=== PATIENT | male | born 1930 | race Caucasian/White ===

== ENCOUNTER 2018-06-14 02:51 | Inpatient (IN) | payer MEDICARE ==
[2018-06-14 05:13] LABS: ALT (SGPT) 14 U/L (8-55); AST (SGOT) 20 U/L (5-34); Albumin 3.6 g/dL (3.4-4.8); Alkaline Phosphatase 170 U/L (40-150); Anion Gap 15 mmol/L (10-20); BUN (Urea Nitrogen) 47 mg/dL (8.4-25.7); Bilirubin, Total 2.3 mg/dL (0.2-1.2); Calc. Creatinine Clearance 0 mL/min (70-130); Calcium 9.7 mg/dL (7.8-10.44); Carbon Dioxide 22 mmol/L (23-31); Chloride 108 mmol/L (98-107); Estimated GFR-MDRD 35; Globulin 3.1 g/dL (2.4-3.5); Glucose 91 mg/dL (83-110); Magnesium 1.7 mg/dL (1.6-2.6); Potassium 4.2 mmol/L (3.5-5.1); Protein, Total 6.7 g/dL (5.8-8.1); Sodium 141 mmol/L (136-145)
[2018-06-14] MEDS ORDERED: Acetaminophen 325 MG TAB PO PRN (05:43)
[2018-06-14] MEDS ORDERED: Ondansetron ODT 4 MG TAB PO PRN (05:43)
[2018-06-14 05:50] LABS: #Eosinphils 0.1 thou/uL (0.0-0.7); #Lymphocytes 1.5 thou/uL (1.20-3.40); #Monocytes 0.6 thou/uL (0.11-0.59); #Neutrophils 3.5 thou/uL (1.40-6.50); %Basophils 0.5 % (0.0-1.0); %Eosinophils 1.4 % (0.0-10.0); %Lymphocytes 26.8 % (21.0-51.0); %Neutrophils 60.3 % (42.0-75.0); Hemoglobin 11.8 g/dL (14.0-18.0); MDiff Complete? YES; Macrocytosis SLIGHT = 6-15 cells (100X) (0-5/hpf); Mean Corpuscular HGB CONC 32.9 g/dL (32.0-36.0); Mean Corpuscular Hemoglobin 35.2 pg (27.0-31.0); Mean Platelet Volume 7.8 fL (7.4-10.4); Platelet Count 108 thou/uL (130-400); Platelet Morphology Comment Appears Decreased; RBC Distribution Width 11.9 % (11.5-14.5); Red Blood Cell (RBC) Count 3.35 mill/uL (4.70-6.10); White Blood Cell (WBC) Count 5.7 thou/uL (4.8-10.8)
[2018-06-14 06:58] VITALS: BMI 37.4
[2018-06-14 08:48] LABS: Troponin I 0.026 ng/mL (< 0.028)
[2018-06-14] MEDS: Enoxaparin Sodium 40 MG/0.4 ML SYRINGE SC SCH (09:35)
--- NOTE | 2018-06-14 09:51 | RAD ---
PORTABLE CHEST: Date: 06/14/18 HISTORY: Shortness of breath. COMPARISON: Prior day's exam. FINDINGS: Heart size is enlarged with internal defibrillator device present. Parenchymal lung changes are simil ar to the previous exam, appear to be largely chronic in nature. There could be some subsegmental ate lectasis in the right lung base. IMPRESSION: Stable exam. POS: ADITYA
--- NOTE | 2018-06-14 12:47 | HP ---
PRIMARY CARE DOCTOR: Physician in out of town. CODE STATUS: Full code. TIME OF EVALUATION: 5:30 a.m. CHIEF COMPLAINT: 1. Generalized weakness. 2. Shortness of breath. HISTORY OF PRESENT ILLNESS: This is an 87-year-old male patient with past medical history of status post pacemaker placement, hypertension, PVD, rectal bleeding in the past, who presented to [facility] [place] after having generalized weakness, some back pain, shortness of breath. No clear triggers. No alleviating factors. The patient stated that his . Symptoms were mild to moderate. No clear triggers. No alleviating factors. It was started overnight. REVIEW OF SYSTEMS: CONSTITUTIONAL: No fevers or chills. The patient reported generalized weakness. RESPIRATORY: No cough or sputum production. The patient did report some shortness of breath. CARDIOVASCULAR: No chest pain or palpitations. GASTROINTESTINAL: No nausea. No vomiting. No diarrhea. No abdominal pain. SWITCHING CLERK: No dizziness, headache, or feeling lightheaded. GENITOURINARY: No burning on urination. EXTREMITIES: Bilateral leg swelling. All other systems were reviewed and negative except for the findings mentioned above. PAST MEDICAL HISTORY: As mentioned in the HPI. PAST SURGICAL HISTORY: Pacemaker, hernia, cochlear implant. PSYCHIATRIC HISTORY: No previous psychiatric history. SOCIAL HISTORY: No drugs, no alcohol, no smoking history. ALLERGIES: 1. BEE STING. 2. ELIQUIS. REPORTED MEDICATIONS: 1. Finasteride. 2. Furosemide. 3. Pravastatin. 4. Metoprolol. 5. Warfarin. PHYSICAL EXAMINATION: VITAL SIGNS: On presentation, blood pressure 139/65 with heart rate 78, respiratory rate of 14, temperature 98, pain 0/10, oxygen saturation was 99. GENERAL APPEARANCE: The patient is alert, oriented, not in acute distress, in good mood. HEENT: Eyes; normal conjunctivae. Moist oral mucosa. Anicteric. No JVD. RESPIRATORY: Bilateral air entry. No rales. No wheezing. Symmetric expansion. CARDIOVASCULAR: Normal rate. Regular rhythm. No murmurs. No gallops. The patient has significant bilateral leg edema. ABDOMEN: Soft. Normal bowel sounds. MUSCULOSKELETAL: Baseline range of motion and strength. No tenderness. SKIN: Warm and intact. No pallor. No rash. The patient does have chronic changes in bilateral lower extremities skin. Peripheral pulse are present. Capillary refill seems to intact. NEURO: No evidence of any new focal weakness. Baseline speech. Cranial nerves seem to be intact. PSYCH: The patient is in good mood. No anxiety. Oriented. Optimal judgement. DIAGNOSTIC DATA: EKG; ventricular rate is 86. The patient has a paced rhythm and pacemaker not pacing properly. Chest x-ray was reviewed by myself. The patient has bilateral pleural effusion, cardiomegaly, pulmonary vein. Pacemaker placed in the right position. No abnormalities found. LABORATORY DATA: Labs were reviewed. The patient has a white count of 5.7, hemoglobin 11.9, hematocrit 35, MCV 107, platelet count 108. Chemistry; sodium 141, potassium 4.2, chloride 108, carbon dioxide 22, anion gap 18, BUN 47, creatinine 1.92. We have previous value reports, GFR 35, glucose 91, calcium 9.7, magnesium 1.7, total bilirubin 2.3. AST 20, ALT 14, alkaline phosphatase 170. Troponin 0.021. Beta natriuretic peptide [QAMARKER]. Albumin was normal. ASSESSMENT AND PLAN: The patient will be placed in the hospital with the following medical problems: 1. Congestive heart failure exacerbation. The patient has significant bilateral leg edema, shortness of breath. The patient has been started on Lasix. Home medications were reconciled. I need state tested nursing assistant from Dr. Parker who is the production analyst who follows with the patient. 2. Pacemaker malfunction. Intervention has been ordered. We will follow result, might need consultation with EPS if not working properly. 3. Possible acute kidney injury. No previous values to compare. Creatinine is 1.82, might be cardiorenal. The patient will be started on Lasix for kidney function and we will monitor for any worsening need Nephro evaluation for state tested nursing assistant with any further device adjustment. 4. Macrocytic anemia, this is chronic, we will monitor, no need for any acute intervention at this point. 5. History of atrial fibrillation, rate is controlled, we will reconcile home medications, pacemaker intervention has been ordered. 6. Controlled hypertension. Blood pressure has been normal, we will reconcile home medications and adjust treatment as needed. 7. DVT prophylaxis. Job ID: [id number]
--- NOTE | 2018-06-14 16:14 | PDOC.PN ---
- Subjective Encounter Start Date: 06/14/18 Encounter Start Time: 15:50 Subjective: f/u for acute CHF, general weakness, AVRIL and pacemaker malfunction. -: Feels weak and unsteady on feet. Hx of falls and using a RW in last 2 weeks -: Some confusion noted per sons. - Objective Resuscitation Status - Order Detail: 06/14/18 05:43 Resuscitation Status Routine Resuscitation Status: FULL: Full Resuscitation MAR Reviewed: Yes Vital Signs & Weight: Vital Signs (12 hours) Temp Pulse Resp BP Pulse Ox 06/14/18 15:00 98.3 F 78 17 117/56 L 96 06/14/18 11:53 98 F 75 16 111/54 L 98 06/14/18 06:54 97.9 F 72 16 99/55 L 99 Weight Weight 239 lb I&O: 06/13/18 06/14/18 06/15/18 06:59 06:59 06:59 Intake Total 240 Balance 240 Result Diagrams: 06/14/18 04:40 06/14/18 04:40 Additional Labs: Laboratory Tests 06/14/18 06/14/18 06/14/18 04:40 04:40 04:40 Magnesium 1.7 Troponin I 0.021 B-Natriuretic Peptide 739.2 H 06/14/18 08:10 Magnesium Troponin I 0.026 B-Natriuretic Peptide Radiology Reviewed by me: Yes (PCXR - chronic changes bilat, PM in place) EKG Reviewed by me: Yes (Tele - Intermittent pacing, +PVC's) Phys Exam - Physical Examination Constitutional: NAD HEENT: PERRLA, sclera anicteric, oral pharynx no lesions Neck: no nodes, no JVD, supple, full ROM coarse sounds in bases, + crackles S1, S2 Cardiovascular: no significant murmur, no rub, gallop, irregular Gastrointestinal: soft, non-tender, no distention, positive bowel sounds Musculoskeletal: pulses present, edema present Neurological: normal sensation, moves all 4 limbs Psychiatric: A&O x 3 Skin: normal turgor, cap refill <2 seconds Dx/Plan (1) Acute CHF (congestive heart failure) Code(s): I50.9 - HEART FAILURE, UNSPECIFIED Status: Acute Comment: ? EF, check 2D echo, Lasix 20mg IV BID, continue Zaroxolyn (2) AVRIL (acute kidney injury) Code(s): N17.9 - ACUTE KIDNEY FAILURE, UNSPECIFIED Status: Acute Comment: Avoid nephrotoxic meds and limit contrast exposure, serial creatinine (3) Atrial fibrillation Code(s): I48.91 - UNSPECIFIED ATRIAL FIBRILLATION Status: Chronic Comment: Currently paced, continue Coumadin, Metoprolol (4) Chronic anticoagulation Code(s): Z79.01 - VICE PRESIDENT QUALITY ASSURANCE (CURRENT) USE OF ANTICOAGULANTS Status: Chronic Comment: Daily PT/INR, continue Coumadin (5) Generalized weakness Code(s): R53.1 - WEAKNESS Status: Chronic Comment: PT evaluation for functional assessment, fall risk precautions, ? SNF/Rehab - Plan plan discussed w/ family, PT/OT, social worker assistant, out of bed/ambulate Continue Lasix 20mg IV BID -: Consult Cardiology service regarding CHF, Pacemaker -: 2D echo pending -: PT evaluation for functional assessment -: AM lab: BMP, CBC, TSH, PT/INR * Convert to inpt status
[2018-06-14] MEDS ORDERED: Furosemide 20 MG/2 ML VIAL SLOW IVP SCH (16:15)
[2018-06-14 17:35] LABS: INR-International Normal Ratio 2.5; Prothrombin Time 26.9 SEC (12.0-14.7)
[2018-06-14] MEDS ORDERED: Warfarin Sodium 3 MG TAB PO SCH (18:00)
[2018-06-14] MEDS: Pravastatin Sodium 40 MG TAB PO SCH (21:35)
[2018-06-14] MEDS: Finasteride 5 MG TAB PO SCH (21:35)
[2018-06-15 04:53] LABS: INR-International Normal Ratio 2.5; Prothrombin Time 26.8 SEC (12.0-14.7)
[2018-06-15 04:56] LABS: #Basophils 0.1 thou/uL (0.0-0.2); #Eosinphils 0.1 thou/uL (0.0-0.7); #Lymphocytes 1.3 thou/uL (1.20-3.40); #Monocytes 0.7 thou/uL (0.11-0.59); #Neutrophils 3.3 thou/uL (1.40-6.50); %Basophils 0.9 % (0.0-1.0); %Eosinophils 1.9 % (0.0-10.0); %Lymphocytes 24.3 % (21.0-51.0); %Monocytes 13.1 % (0.0-10.0); %Neutrophils 59.8 % (42.0-75.0); Hemoglobin 11.1 g/dL (14.0-18.0); Mean Corpuscular HGB CONC 31.9 g/dL (32.0-36.0); Mean Corpuscular Hemoglobin 34.4 pg (27.0-31.0); Mean Platelet Volume 7.5 fL (7.4-10.4); Platelet Count 95 thou/uL (130-400); Red Blood Cell (RBC) Count 3.22 mill/uL (4.70-6.10); White Blood Cell (WBC) Count 5.5 thou/uL (4.8-10.8)
[2018-06-15] MEDS ORDERED: Metolazone 5 MG TAB PO SCH (05:00)
[2018-06-15 05:09] LABS: Anion Gap 15 mmol/L (10-20); BUN (Urea Nitrogen) 45 mg/dL (8.4-25.7); Calc. Creatinine Clearance 43 mL/min (70-130); Calcium 9.5 mg/dL (7.8-10.44); Carbon Dioxide 24 mmol/L (23-31); Chloride 106 mmol/L (98-107); Estimated GFR-MDRD 35; Glucose 93 mg/dL (83-110); Potassium 4.5 mmol/L (3.5-5.1); Sodium 140 mmol/L (136-145)
[2018-06-15] MEDS ORDERED: Furosemide 20 MG/2 ML VIAL SLOW IVP SCH (06:00)
--- NOTE | 2018-06-15 07:52 | PDOC.PN ---
- Subjective Encounter Start Date: 06/15/18 Encounter Start Time: 08:40 Subjective: Patient with severe fatigue/ MULLER with ambulation, worse past 2 months since -: tried to switch to Zarelto and had some bleeding issues with bladder and -: lower GI bleed workup. No chest pain. No SOB at rest currently. - Objective Resuscitation Status - Order Detail: 06/14/18 05:43 Resuscitation Status Routine Resuscitation Status: FULL: Full Resuscitation MAR Reviewed: Yes Vital Signs & Weight: Vital Signs (12 hours) Temp Pulse Resp BP Pulse Ox 06/15/18 05:46 98 F 73 18 108/56 L 97 Weight Weight 241 lb 1.6 oz I&O: 06/14/18 06/15/18 06/16/18 06:59 06:59 06:59 Intake Total 1010 Output Total 550 Balance 460 Result Diagrams: 06/15/18 04:31 06/15/18 04:31 Phys Exam - Physical Examination Constitutional: NAD HEENT: moist MMs Respiratory: no wheezing, no rales, no rhonchi Cardiovascular: RRR, no significant murmur Gastrointestinal: soft, positive bowel sounds Musculoskeletal: edema present tight 3+ edema to bilateral lower extremities Neurological: non-focal, moves all 4 limbs Psychiatric: normal affect, A&O x 3 Dx/Plan (1) Acute CHF (congestive heart failure) Code(s): I50.9 - HEART FAILURE, UNSPECIFIED Status: Acute Comment: ? EF, check 2D echo, Lasix increased to 40mg IV BID, continue Zaroxolyn, cardiology consult pending (2) AVRIL (acute kidney injury) Code(s): N17.9 - ACUTE KIDNEY FAILURE, UNSPECIFIED Status: Acute Comment: Avoid nephrotoxic meds and limit contrast exposure, serial creatinine (3) Atrial fibrillation Code(s): I48.91 - UNSPECIFIED ATRIAL FIBRILLATION Status: Chronic Comment: Currently paced, continue Coumadin, Metoprolol (4) Chronic anticoagulation Code(s): Z79.01 - GEM TECHNICIAN (CURRENT) USE OF ANTICOAGULANTS Status: Chronic Comment: Daily PT/INR, continue Coumadin (5) Generalized weakness Code(s): R53.1 - WEAKNESS Status: Chronic Comment: PT evaluation for functional assessment, fall risk precautions, ? SNF/Rehab - Plan cont current plan of care, PT/OT * . - Discharge Day Encounter end time: 08:50
[2018-06-15] MEDS: Enoxaparin Sodium 40 MG/0.4 ML SYRINGE SC SCH (10:55)
[2018-06-15] MEDS: Furosemide 40 MG/4 ML VIAL SLOW IVP SCH (15:27)
[2018-06-15] MEDS: Warfarin Sodium 3 MG TAB PO SCH (17:08)
--- NOTE | 2018-06-15 19:51 | CON ---
DATE OF CONSULTATION: PRIMARY CARE DOCTOR: Dr. Hansen. PRIMARY PSYCHIATRY PHYSICIAN: Dr. Waleska Parker. REFERRING DOCTOR: Dr. Bigg Bustillos. REASON FOR CARDIOLOGY CONSULT: Pacemaker malfunction, CHF and atrial fibrillation. HISTORY OF PRESENT ILLNESS: Mr. Carbajal is an 87-year-old, very present male with a significant history of chronic atrial fibrillation, hypertension, status post pacemaker placement, and COPD. The patient has complained of fatigue, dizziness, and less appetite for more than three months. He has seen Dr. Parker on June 03, 2018, and metoprolol succinate was increased to 50 mg once a day with metolazone 5 mg 1 tablet on Friday and . He was also instructed to watch his fluid and fluid intake. However, today during the initial Cardiology consult assessment, he said he has not watched his diet. Since he is living by himself, he eats cans of beans, and frozen dinner at home and drinks orange juice. Yesterday, he felt more weak and dizzy, and really he did not have any appetite. The patient's son drove him to [facility] for further evaluation and treatment. The patient had a 12-lead EKG at the [facility]. The 12-lead EKG shows unspecified pacemaker malfunction. Because of that reason, the patient was transferred to [facility] in [place], [place]. Today, the patient's pacemaker interrogation shows 3 episodes of very short runs of SVT, the longest one being 5 seconds and actually, the patient's 12-lead EKG in [facility] shows no abnormal pacemaker failure and functioned well; however, the patient still complained of fatigue and no appetite at this moment. The patient wore lymphoma boots at home for a couple of months for bilateral lower extremity edema. At this moment, the patient still continued to complain of fatigue at this moment, but denied shortness of breath, dizziness, lightheadedness, palpitation, fluttering in his chest, or any other cardiac complaints. He had been on Eliquis in July 2017 for chronic atrial fibrillation. However, he developed GI bleed with Eliquis and Eliquis was stopped and resumed on Coumadin. Today, he reports that he had intermittent dark stool still. His hemoglobin level is stable at this moment. The patient had a pacemaker placement in 2010 and an urgent generator change out was done in 2016. He has seen a water pollution scientist in [place], [place], but recently, he changed and his water pollution scientist is Dr. Parker. He reports that he had an echocardiogram done in July 2017, which was normal per patient's report. PAST MEDICAL HISTORY: 1. Chronic atrial fibrillation. 2. Hypertension. 3. COPD. SURGICAL HISTORY: Pacemaker placement 2010 and generator change out in 2016, hernia repair about 30 years ago, hearing aid, and cornea implants placement. FAMILY HISTORY: The patient's mother is due to heart-related disease and the patient's mother also had a pacemaker placement. The patient's father due to cancer, but also he had a history of CHF. SOCIAL HISTORY: Patient is , lives by himself, but his son lives in the same town. He has 2 children who are alive, well, and healthy. He used to smoke, but quit in 1996. He denied EtOH or illicit drug abuse. He drinks 2 cups of coffee a day. He does not watch salt or fluid intake at home. He lives by himself. He is housekeeping himself. ALLERGIES: HE IS ALLERGIC TO ELIQUIS AND HONEYBEE. HOME MEDICATIONS: 1. Pravastatin 40 mg once a day. 2. Metoprolol succinate 50 mg once a day. 3. Metolazone 5 mg on Friday and . 4. Finasteride 5 mg once a day. 5. Coumadin 3 mg once a day. 6. Lasix 40 mg once a day. REVIEW OF SYSTEMS: A 12-point review of systems was negative unless otherwise mentioned. The patient had several bouts of diarrhea about two weeks ago. He has had less appetite recently and he drank Boost, 1-2 Boost a day for 3 months so far. He is still having intermittent dark stool, the last one was last Friday. He uses a walker. PHYSICAL EXAMINATION: VITAL SIGNS: Blood pressure 143/61, temperature 97.4, pulse is 83 and afebrile, respiratory rate 16, O2 saturation 96% on room air. GENERAL: The patient is alert, oriented x4, not in acute distress. EYES: Extraocular muscle movement intact. ENT AND MOUTH: Oral mucosa moist without lesion. NECK: Supple. No JVD. LUNGS: Clear to auscultate bilaterally. No rales, rhonchi, or wheezes noted. CARDIOVASCULAR: Irregularly irregular. No significant murmur to the left fifth intercostal mediastinal border. No thrill or bruit noted. Carotid pulses are present without bruit or thrill noted. 2+ pulses in bilateral lower extremities. However, there is 3+ pitting edema in bilateral lower extremities. SKIN: Warm and dry, but discoloration to the bilateral lower extremities, but no rash, erythema or laceration. MUSCULOSKELETAL: The patient is able to move all extremities without difficulties. The patient denied claudication. PSYCHIATRIC: The patient's mood is appropriate. NEUROLOGIC: The patient is alert and oriented x4. Nonfocal. LABORATORY DATA: WBC 5.5, hemoglobin 11.1, hematocrit 34.7, platelet 95. INR today 2.5. Sodium 140, potassium 4.5, BUN 45, creatinine 1.85, glucose 93, AST 20, ALT 14, troponin 0.021 and 0.026. BNP is 739. TSH 1.662. Chest x-ray showed no acute cardiopulmonary dysfunction. ASSESSMENT AND PLAN: 1. Pacemaker interrogation although patient's 12-lead EKG in the ER at [facility] specified the pacemaker failure. The patient's pacemaker interrogation shows no arrhythmia, pauses or any failure at this moment. The patient had a 3-beat very short run of supraventricular tachycardia. The patient is asymptomatic. 2. Acute on chronic heart failure. The patient's condition is stable at this moment with Lasix 40 mg IV twice a day with metolazone 5 mg 1 hour prior to the Lasix on Friday and . An echocardiogram was ordered, but the results are pending at this moment. He is on the Lasix, metolazone, metoprolol succinate 50 mg once a day. If the patient's blood pressure is stable, we would like to start ITALO inhibitor or ARB for this patient. 3. Acute kidney insufficiency. His creatinine level is being elevated. We would like to hold the ITALO inhibitor or ARB at this moment due to the creatinine level. 4. Chronic atrial fibrillation. The patient's heart rate is well controlled with metoprolol 50 mg once a day. He is on Coumadin 3 mg once a day at this moment, which is managed by patient's primary care doctor. 5. Hypertension. The patient's blood pressure is stable at this moment with current medication. 6. Chronic obstructive pulmonary disease. Patient is stable on room air. Thank you for allowing Cardiology Services to participate in the care of this patient. We will follow along the patient's care team and make further evaluation as appropriate. Job ID: [id number]
[2018-06-15] MEDS: Pravastatin Sodium 40 MG TAB PO SCH (20:42)
[2018-06-15] MEDS: Finasteride 5 MG TAB PO SCH (20:42)
[2018-06-16] MEDS: Furosemide 40 MG/4 ML VIAL SLOW IVP SCH ×2 (06:25→14:30)
--- NOTE | 2018-06-16 07:18 | PDOC.PN ---
- Subjective Encounter Start Date: 06/16/18 Encounter Start Time: 09:50 Subjective: Patient with weakness, but feeling a bit better. Swelling improving -: behind knees. No SOB at rest. - Objective Resuscitation Status - Order Detail: 06/14/18 05:43 Resuscitation Status Routine Resuscitation Status: FULL: Full Resuscitation MAR Reviewed: Yes Vital Signs & Weight: Vital Signs (12 hours) Temp Pulse Resp BP BP Pulse Ox 06/16/18 04:15 98.2 F 77 18 97/54 L 95 06/16/18 00:30 98.2 F 77 18 108/56 L 95 06/15/18 20:00 97.8 F 87 20 103/57 L 96 06/15/18 19:30 96 Weight Weight 240 lb 9.6 oz I&O: 06/15/18 06/16/18 06/17/18 06:59 06:59 06:59 Intake Total 1010 1380 Output Total 550 1150 Balance 460 230 Result Diagrams: 06/15/18 04:31 06/15/18 04:31 Phys Exam - Physical Examination Constitutional: NAD HEENT: moist MMs Respiratory: no wheezing, no rales, no rhonchi Cardiovascular: RRR, no significant murmur Gastrointestinal: soft, positive bowel sounds Musculoskeletal: edema present 3+ bilateral tense edema to knees Neurological: non-focal, moves all 4 limbs Psychiatric: normal affect, A&O x 3 Dx/Plan (1) Acute CHF (congestive heart failure) Code(s): I50.9 - HEART FAILURE, UNSPECIFIED Status: Acute Comment: ? EF, check 2D echo, Lasix increased to 40mg IV BID, continue Zaroxolyn, cardiology consult pending (2) AVRIL (acute kidney injury) Code(s): N17.9 - ACUTE KIDNEY FAILURE, UNSPECIFIED Status: Acute Comment: Avoid nephrotoxic meds and limit contrast exposure, serial creatinine (3) Atrial fibrillation Code(s): I48.91 - UNSPECIFIED ATRIAL FIBRILLATION Status: Chronic Comment: Currently paced, continue Coumadin, Metoprolol (4) Chronic anticoagulation Code(s): Z79.01 - NURSING HOME (CURRENT) USE OF ANTICOAGULANTS Status: Chronic Comment: Daily PT/INR, continue Coumadin, will have pharmacy monitor in house (5) Generalized weakness Code(s): R53.1 - WEAKNESS Status: Chronic Comment: PT evaluation for functional assessment, fall risk precautions, ? SNF/Rehab - Plan cont current plan of care, PT/OT, DVT proph w/lovenox Pacer malfunction ruled out * . - Discharge Day Encounter end time: 10:00
[2018-06-16] MEDS ORDERED: WARFARIN PO PRN (07:39)
--- NOTE | 2018-06-16 08:31 | PDOC.CTH ---
Cardiology Progress Note - Subjective The pt seen and examined. No overnight events. No cardiac complaints. Edema to bilat thighs, but improving since he is on Lasix IV per the pt. - Objective Vital Signs Temp Pulse Resp BP BP Pulse Ox 06/16/18 07:18 98.0 F 84 16 126/57 L 93 L 06/16/18 04:15 98.2 F 77 18 97/54 L 95 06/16/18 00:30 98.2 F 77 18 108/56 L 95 Weight 240 lb 9.6 oz 06/15/18 06/16/18 06/17/18 06:59 06:59 06:59 Intake Total 1010 1380 Output Total 550 1150 Balance 460 230 - Physical Examination General/Neuro: alert & oriented x3 Neck: no JVD present Lungs: CTA Heart: other: (irregular) Abdomen: soft Extremities: other: (3-4+ pitting BLE edema to bilat thigh) - Telemetry Telemetry Rhythm: BiV pacing - Labs Result Diagrams: 06/15/18 04:31 06/15/18 04:31 Troponin/CKMB Troponin I 0.026 ng/mL (< 0.028) 06/14/18 08:10 - Assessment/Plan 1. Acute on CHF - Echo was taken this AM and the result is pending this time; Stable with Lasix 40mg IV BID, Zaroxolyn on Friday and , BBlocker, but no ITALO/ARB due to AVRIL. 2. Chronic Afib - well controlled HR with BBlocker and Coumadin; Hgb is stable at this moment. 3. AVRIL on CKD - 4. HTN - stable with current medication 5. Generalized weakness - stable; walks with a walker without any difficulties. 6. BiV PM placement - PM interrogation showed normal function. MAR reviewed Pt. seen and eval. by me. I agree with the A/P by the ELECTRO MECHANICAL ENGINEER. He is ambulating in the halls with a walker and PT. The Echo: EF 25-30%, Severe RYLIE,APARNA, severe MR,TR Review of Systems - Review of Systems Constitutional: reports: weakness EENTM: reports: no symptoms reported Respiratory: reports: no symptoms reported Cardiac (ROS): reports: no symptoms reported ABD/GI: reports: no symptoms reported : reports: no symptoms reported Musculoskeletal: reports: no symptoms reported
--- NOTE | 2018-06-16 08:41 | CON ---
DATE OF CONSULTATION: 06/15/2018 ADDENDUM: Cardiology consult note dictated by my nurse practitioner, Glenny Dean. HISTORY OF PRESENT ILLNESS: This elderly gentleman I saw recently in [place] for the first time is an 87-year-old gentleman, who has had a past medical history of pacemaker insertion. He also has a history of hypertension and congestive heart failure. He presented to the emergency room after he was very weak at home and his son insisted that he go to the emergency room. His pacemaker was interrogated. EKGs were performed in the emergency room and there were some pacemaker abnormalities. However, the pacemaker has been interrogated and there is no indication that there are any significant abnormalities with the pacemaker. It is functioning normally and there was no indication that the patient had any significant arrhythmias that would have caused ill feeling to the patient. He just appears to be deconditioned and extremely weak and fatigued. He denies any chest pain. He has had some shortness of breath, but no more than his usual. He does have a history in the past of atrial fibrillation and his pacemaker device is set in the VVIR mode. He appears to have chronic atrial fibrillation and he is on oral anticoagulation. At this time, he appears to be relatively stable. He has no other complaints. I have reviewed his laboratory data, as well as his vital signs. He also appeared to be relatively reasonable. I did notice, however, that his alkaline phosphatase was 170 and the BNP was 739 with a creatinine of 1.89. His other laboratory data showed he is mildly anemic at 11.1, WBC was 5.5, platelet count was 95,000, and his INR was 2.5. From a cardiac standpoint, he actually appears to be doing quite well. He may be slightly volume overloaded. Otherwise, I do not see any significant abnormalities from a cardiac standpoint at this time. He has been given IV Lasix and has had some diuresis. He does have lower extremity edema. I did notice that we need to probably readjust his medications. PAST MEDICAL HISTORY: Please refer to the notes dictated by the nurse practitioner. SOCIAL HISTORY: Please refer to the notes dictated by the nurse practitioner. FAMILY HISTORY: Please refer to the notes dictated by the nurse practitioner. REVIEW OF SYSTEMS: Please refer to the notes dictated by the nurse practitioner. MEDICATIONS: Please refer to the notes dictated by the nurse practitioner. ALLERGIES: PLEASE REFER TO THE NOTES DICTATED BY THE NURSE PRACTITIONER. PHYSICAL EXAMINATION: GENERAL: Reveals an elderly gentleman. He is afebrile. VITAL SIGNS: Blood pressure is 98/51 after being given his medications a couple hours ago, previously was 143/61. Heart rate is 82. He is pacing for the time and remains. At times, he appears to be in atrial fibrillation. Respiratory rate is 16 to 20, and O2 saturation is 94%. HEENT: Shows head to be normocephalic and atraumatic. Carotid pulses are present. I did not hear any significant bruits. CHEST: Clear to auscultation without rales, rhonchi, or wheezing. CARDIOVASCULAR: Reveals an irregular rhythm. He has a well-healed surgical incision over the pacemaker site. EXTREMITIES: Showed 3+ lower extremity edema. This was present previously when I saw him on June 03 in [place]. NEUROLOGICAL: He appears to be nonfocal. SKIN: Warm and dry. IMPRESSION: 1. Elderly gentleman, status post pacemaker insertion with history of chronic atrial fibrillation. He has had sick sinus syndrome. Pacemaker was inserted sometime back. He has been followed previously by another event technician. The first time I saw this gentleman was June 03, 2018. He appeared to be somewhat weak at that time and was able to ambulate by himself. At this time, he seems to be just more fatigued and weak. He did have an echocardiogram in August of 2017, which showed an ejection fraction of 40% to 45% with significant dilatation of the left and right atrium. I suspect he has significant diastolic dysfunction. Please note, he does have a defibrillator and not a pacemaker. He has had this for many years. I suspect he has diastolic dysfunction. We will need to continue to monitor his medications. 2. Chronic atrial fibrillation. Would suggest he remain on his Coumadin and keep his INR between 2 and 3. 3. History of automatic implantable cardioverter-defibrillator implant. Function of this device is normal, was interrogated, was normal function. 4. Right-sided heart failure due to his chronic obstructive pulmonary disease. We will continue to follow this also, may need to be seen by rod piler. 5. Lower extremity edema. We will continue to try to manage this by diuretics. However, he has both right and left-sided heart failure making this much more difficult. I have suggested to him that he continue to elevate legs when possible. We will be more than happy to continue to follow the patient with you and based on his echocardiogram, further recommendations will follow. Job ID: [id number]
[2018-06-16 08:55] LABS: INR-International Normal Ratio 2.4; Prothrombin Time 25.9 SEC (12.0-14.7)
[2018-06-16] MEDS ORDERED: Enoxaparin Sodium 40 MG/0.4 ML SYRINGE SC SCH (09:00)
--- NOTE | 2018-06-16 13:25 | PDOC.CTH ---
Cardiology Progress Note - Subjective The pt seen and examined. No overnight events. No cardiac complaints. - Objective Vital Signs Temp Pulse Pulse Pulse Resp BP BP 06/16/18 11:38 98.1 F 76 20 06/16/18 09:15 80 92 130/63 112/60 06/16/18 08:25 06/16/18 07:18 98.0 F 84 16 06/16/18 04:15 98.2 F 77 18 BP Pulse Ox 06/16/18 11:38 102/58 L 93 L 06/16/18 09:15 06/16/18 08:25 93 L 06/16/18 07:18 126/57 L 93 L 06/16/18 04:15 97/54 L 95 Weight 240 lb 9.6 oz 06/15/18 06/16/18 06/17/18 06:59 06:59 06:59 Intake Total 1010 1380 240 Output Total 550 1150 Balance 460 230 240 - Labs Result Diagrams: 06/15/18 04:31 06/15/18 04:31 Troponin/CKMB Troponin I 0.026 ng/mL (< 0.028) 06/14/18 08:10
[2018-06-16] MEDS ORDERED: Senokot 8.6 MG TAB PO PRN (16:38)
[2018-06-16] MEDS: Warfarin Sodium 3 MG TAB PO SCH (18:03)
[2018-06-16] MEDS: Pravastatin Sodium 40 MG TAB PO SCH (19:47)
[2018-06-16] MEDS: Finasteride 5 MG TAB PO SCH (19:48)
[2018-06-16] MEDS: Docusate 100 MG CAP PO SCH (19:48)
[2018-06-17 05:51] LABS: INR-International Normal Ratio 2.3; Prothrombin Time 25.6 SEC (12.0-14.7)
[2018-06-17 05:52] LABS: #Basophils 0.1 thou/uL (0.0-0.2); #Eosinphils 0.2 thou/uL (0.0-0.7); #Lymphocytes 1.7 thou/uL (1.20-3.40); #Monocytes 0.7 thou/uL (0.11-0.59); #Neutrophils 3.9 thou/uL (1.40-6.50); %Basophils 0.9 % (0.0-1.0); %Eosinophils 2.6 % (0.0-10.0); %Lymphocytes 25.9 % (21.0-51.0); %Monocytes 10.9 % (0.0-10.0); %Neutrophils 59.7 % (42.0-75.0); Hemoglobin 12.5 g/dL (14.0-18.0); Mean Corpuscular HGB CONC 32.6 g/dL (32.0-36.0); Mean Corpuscular Hemoglobin 35.1 pg (27.0-31.0); Mean Platelet Volume 8.1 fL (7.4-10.4); Platelet Count 118 thou/uL (130-400); RBC Distribution Width 11.9 % (11.5-14.5); Red Blood Cell (RBC) Count 3.55 mill/uL (4.70-6.10); White Blood Cell (WBC) Count 6.6 thou/uL (4.8-10.8)
[2018-06-17 06:09] LABS: Anion Gap 13 mmol/L (10-20); BUN (Urea Nitrogen) 40 mg/dL (8.4-25.7); Calc. Creatinine Clearance 44 mL/min (70-130); Calcium 9.7 mg/dL (7.8-10.44); Carbon Dioxide 29 mmol/L (23-31); Chloride 99 mmol/L (98-107); Estimated GFR-MDRD 36; Glucose 81 mg/dL (83-110); Potassium 4.1 mmol/L (3.5-5.1); Sodium 137 mmol/L (136-145)
[2018-06-17] MEDS: Furosemide 40 MG/4 ML VIAL SLOW IVP SCH (06:12)
--- NOTE | 2018-06-17 08:00 | PDOC.PN ---
- Subjective Encounter Start Date: 06/17/18 Encounter Start Time: 09:00 Subjective: Patient with decreased edema in lower extremities. Ambulating well -: and off oxygen. No CP. - Objective Resuscitation Status - Order Detail: 06/14/18 05:43 Resuscitation Status Routine Resuscitation Status: FULL: Full Resuscitation MAR Reviewed: Yes Vital Signs & Weight: Vital Signs (12 hours) Temp Pulse Resp BP Pulse Ox 06/17/18 05:09 98.0 F 73 18 111/67 95 06/17/18 01:00 78 20 129/60 94 L Weight Weight 237 lb 3.2 oz I&O: 06/16/18 06/17/18 06/18/18 06:59 06:59 06:59 Intake Total 1380 1320 Output Total 1150 450 Balance 230 870 Result Diagrams: 06/17/18 04:58 06/17/18 04:58 Phys Exam - Physical Examination Constitutional: NAD HEENT: moist MMs Respiratory: no wheezing, no rales, no rhonchi Cardiovascular: RRR Gastrointestinal: soft, positive bowel sounds Musculoskeletal: edema present 2+ bilateral lower extremities Neurological: non-focal, moves all 4 limbs Psychiatric: normal affect, A&O x 3 Dx/Plan (1) Acute CHF (congestive heart failure) Code(s): I50.9 - HEART FAILURE, UNSPECIFIED Status: Acute Comment: EF 25-30% , check 2D echo, Lasix at 40mg IV BID, continue Zaroxolyn, cardiology consulted , patient with multiple unmeasured voids. Weight dropping significantly so seems to be diuresing well. (2) AVRIL (acute kidney injury) Code(s): N17.9 - ACUTE KIDNEY FAILURE, UNSPECIFIED Status: Acute Comment: Avoid nephrotoxic meds and limit contrast exposure, serial creatinine, stable (3) Atrial fibrillation Code(s): I48.91 - UNSPECIFIED ATRIAL FIBRILLATION Status: Chronic Comment: Currently paced, continue Coumadin, Metoprolol (4) Chronic anticoagulation Code(s): Z79.01 - SKILLED NURSING (CURRENT) USE OF ANTICOAGULANTS Status: Chronic Comment: Daily PT/INR, continue Coumadin, will have pharmacy monitor in house (5) Generalized weakness Code(s): R53.1 - WEAKNESS Status: Chronic Comment: Patient ambulating well with PT, can go home with for PT when diuresed - Plan cont current plan of care, PT/OT, DVT proph w/lovenox Spoke with Dr. Parker, she would like to have him take Zaroxolyn a couple -: times per week before his Lasix. Can go home today. * . - Discharge Day Encounter end time: 09:20
[2018-06-17] MEDS: Docusate 100 MG CAP PO SCH (09:42)
--- NOTE | 2018-06-17 11:43 | PDOC.CTH ---
Cardiology Progress Note - Subjective The pt seen and examined. No overnight events. No cardiac complaints. - Objective Vital Signs Temp Pulse Resp BP Pulse Ox 06/17/18 07:29 97.8 F 71 20 118/79 95 06/17/18 05:09 98.0 F 73 18 111/67 95 06/17/18 01:00 78 20 129/60 94 L Weight 237 lb 3.2 oz 06/16/18 06/17/18 06/18/18 06:59 06:59 06:59 Intake Total 1380 1320 240 Output Total 1150 450 Balance 230 870 240 - Physical Examination General/Neuro: alert & oriented x3 Neck: no JVD present Lungs: CTA Heart: other: (irregular) Extremities: other: (3+ pitting BLE edema) - Telemetry Telemetry Rhythm: BiV paced - Labs Result Diagrams: 06/17/18 04:58 06/17/18 04:58 Troponin/CKMB Troponin I 0.026 ng/mL (< 0.028) 06/14/18 08:10 - Assessment/Plan 1. Acute on CHF - Echo on 06/16/2018 showed EF 25-30%, Severe RYLIE and APARNA, severe MR and TR; Stable with Lasix 40mg IV BID, Zaroxolyn on Friday and , BBlocker, but no ITALO/ARB due to AVRIL. 2. Chronic Afib - well controlled HR with BBlocker and Coumadin; Hgb is stable at this moment. 3. AVRIL on CKD - no changed 4. HTN - stable with current medication 5. Generalized weakness - stable; walks with a walker without any difficulties. 6. BiV PM placement - PM interrogation showed normal function. MAR reviewed * From Cardiac standpoint, the pt is stable to d/c home. He already has F/u with Dr Parker in [place] on 07/01/2018. * will re-eval his EF with Echo within 3 months. Review of Systems - Review of Systems Constitutional: reports: no symptoms reported EENTM: reports: no symptoms reported Respiratory: reports: no symptoms reported Cardiac (ROS): reports: no symptoms reported ABD/GI: reports: no symptoms reported : reports: no symptoms reported Musculoskeletal: reports: no symptoms reported
--- NOTE | 2018-06-17 11:54 | PQF ---
CLINICAL DOCUMENTATION IMPROVEMENT CLARIFICATION FORM: ICD-10 Updated PLEASE DO AN ADDENDUM TO THE PROGRESS NOTE WITH ANY DOCUMENTATION UPDATES OR ADDITIONS AND CARRY THROUGH TO DC SUMMARY. THANK YOU. DATE: 06/17/18 ATTN: Please exercise your independent, professional judgment in responding to the clarification form. Clinical indicators are provided on the bottom of this form for your review Please check appropriate box(s): HEART FAILURE: A. TYPE: [ ] Systolic / HFrEF [ ] Diastolic / HFpEF [ X ] Combined Systolic / Diastolic [ ] Unable to determine In addition, please specify: Present on Admission (POA): [ X ] Yes [ ] No [ ] Unable to determine For continuity of documentation, please document condition throughout progress notes and discharge summary. Thank You. CLINICAL INDICATORS - SIGNS / SYMPTOMS / LABS PROGRESS NOTE 06/17: "ACUTE CHF" BNP 739.2 EJECTION FRACTION IS VISUALLY ESTIMATED AT 25-30%. PROBABLE DIASTOLIC DYSFUNCTION" RISKS: H/O CHF HYPERTENSION TREATMENT: IV LASIX (06/15-PRESENT) CARDIOLOGY CONSULT ECHOCARDIOGRAM CARDIAC MONITORING (This form is maintained as a part of the permanent medical record) 2014 [employer]. All Rights Reserved WANDA [email or web address] Office: [phone] [facility] HOSPITALMelchor
[2018-06-17 12:12] VITALS: BP 117/61; TEMP 98.6
--- NOTE | 2018-06-18 04:50 | DIS ---
DATE OF ADMISSION: 06/14/2018 DATE OF DISCHARGE: 06/17/2018 PRIMARY CARE PHYSICIAN: Bigg Hansen MD. REASON FOR ADMISSION: CHF exacerbation. DIAGNOSES AT DISCHARGE: 1. Acute exacerbation of mixed systolic and diastolic congestive heart failure. 2. Acute on chronic kidney disease, stable. 3. Atrial fibrillation with pacer malfunction ruled out. 4. Chronic anticoagulation, on Coumadin. 5. Generalized weakness. PROCEDURE: Echocardiogram showing ejection fraction of 25% to 30%, mild left ventricular dilatation, probable diastolic dysfunction, severe left atrial dilation, marked right atrial dilation as well and severe mitral regurgitation, tricuspid regurgitation, and moderate pulmonic regurgitation. CONSULTATION: Cardiology, Dr. Parker. SUMMARY OF HOSPITAL COURSE: This is an 87-year-old white male with past medical history of congestive heart failure and atrial fibrillation with pacemaker placement. He presented to [facility] with generalized weakness and shortness of breath. He had severe edema. He was transferred to evaluate his pacemaker and for treatment of his congestive heart failure. The patient had his pacemaker evaluated in the hospital was operating properly. Dr. Parker was consulted. The patient was put on IV Lasix twice a day with continued Zaroxolyn as well. The patient diuresed well without any change in his creatinine started at 1.8, and he had improvement in his lower extremity edema. He was ambulating well in the hallway and is ready for discharge. DISCHARGE MANAGEMENT: Discharged home with outpatient physical therapy arranged in [facility]. ACTIVITY: As tolerated. DIET: Fluid restricted healthy heart low-sodium diet. FOLLOWUP: Follow up with Dr. Parker in 2 to 3 weeks and with his primary care physician in 7 days to recheck a basic metabolic panel. DISCHARGE MEDICATIONS: 1. Finasteride 5 mg daily. 2. Metolazone 5 mg one hour before Lasix doses on Friday and . 3. Metoprolol succinate 50 mg daily. 4. Pravastatin 40 mg at night. 5. Warfarin 3 mg daily. 6. Furosemide. Continue 40 mg daily and another prescription of 20 mg daily to be added on for a total of 60 mg daily, 14 tablets of the 20 mg, dispensed. Job ID: [id number]
== END 2018-06-17 15:03 | disposition home or self-care (01) | DRG 291 ==
LOC: ERS 02:51 → 2SW 06:27 → OBSVTOIN 06:32 → 2SW 06:32
PROVIDERS: ADMIT Hospitalist; ATTEND Hospitalist
DX: I13.0 Hypertensive heart and chronic kidney disease with heart failure and stage 1 through stage 4 chronic kidney disease, or unspecified chronic kidney disease (principal); I50.41 Acute combined systolic (congestive) and diastolic (congestive) heart failure; N17.9 Acute kidney failure, unspecified; T82.119A Breakdown (mechanical) of unspecified cardiac electronic device, initial encounter; I73.9 Peripheral vascular disease, unspecified; D53.9 Nutritional anemia, unspecified; I48.2 Chronic atrial fibrillation; J44.9 Chronic obstructive pulmonary disease, unspecified; I08.1 Rheumatic disorders of both mitral and tricuspid valves; N18.9 Chronic kidney disease, unspecified; Z96.21 Cochlear implant status; Z95.0 Presence of cardiac pacemaker; Z88.8 Allergy status to other drugs, medicaments and biological substances; Z91.030 Bee allergy status; Z79.01 Long term (current) use of anticoagulants; Z87.891 Personal history of nicotine dependence; Y83.1 Surgical operation with implant of artificial internal device as the cause of abnormal reaction of the patient, or of later complication, without mention of misadventure at the time of the procedure
CPT/HCPCS: 36415; 71045; 80048; 80053; 83735; 83880; 84443; 84484; 85025; 85610; 93005; 93306; 93798; J1650; J1940; Q0162

== ENCOUNTER 2018-06-18 12:08 | Inpatient (IN) | payer MEDICARE ==
--- NOTE | 2018-06-18 12:58 | CT ---
CT HEAD NONCONTRAST: History: Altered mental status. FINDINGS: There is no evidence of acute intracranial hemorrhage or infarct. Significant motion artifact obscure s detail. There is also significant metallic spray artifact from the metallic electronic device at th e right posterior temporal calvarium. No mass effect or shift of midline structures are apparent. Vis ualized paranasal sinuses remain well aerated. IMPRESSION: No acute intracranial abnormalities are demonstrated. POS: [facility]
--- NOTE | 2018-06-18 13:15 | RAD ---
PORTABLE CHEST: Date: 06/18/18 HISTORY: Hypertension. GI bleed. COMPARISON: 06/14/18 study. FINDINGS: Heart size is enlarged. No signs of overt failure. A defibrillator device is again noted. No infiltra tive process. IMPRESSION: Marked cardiomegaly. Stable overall exam. POS: [facility]
[2018-06-18 13:45] LABS: INR-International Normal Ratio 2.3; PTT 36.4 SEC (22.9-36.1); Prothrombin Time 25.1 SEC (12.0-14.7)
[2018-06-18 14:19] LABS: ALT (SGPT) 13 U/L (8-55); AST (SGOT) 27 U/L (5-34); Albumin 3.5 g/dL (3.4-4.8); Alkaline Phosphatase 164 U/L (40-150); Anion Gap 19 mmol/L (10-20); BUN (Urea Nitrogen) 45 mg/dL (8.4-25.7); Bilirubin, Total 2.7 mg/dL (0.2-1.2); CK (CPK) 48 U/L (30-200); Calc. Creatinine Clearance 0 mL/min (70-130); Calcium 9.3 mg/dL (7.8-10.44); Carbon Dioxide 22 mmol/L (23-31); Chloride 102 mmol/L (98-107); Estimated GFR-MDRD 36; Globulin 3.1 g/dL (2.4-3.5); Glucose 97 mg/dL (83-110); Protein, Total 6.6 g/dL (5.8-8.1); Sodium 139 mmol/L (136-145)
[2018-06-18 14:24] LABS: #Lymphocytes 0.6 thou/uL (1.20-3.40); #Monocytes 0.2 thou/uL (0.11-0.59); #Neutrophils 7.5 thou/uL (1.40-6.50); %Basophils 0.2 % (0.0-1.0); %Eosinophils 0.2 % (0.0-10.0); %Lymphocytes 7.2 % (21.0-51.0); %Monocytes 2.9 % (0.0-10.0); %Neutrophils 89.5 % (42.0-75.0); Hemoglobin 12.2 g/dL (14.0-18.0); Mean Corpuscular HGB CONC 33.2 g/dL (32.0-36.0); Mean Corpuscular Hemoglobin 35.3 pg (27.0-31.0); Mean Platelet Volume 7.9 fL (7.4-10.4); Platelet Count 122 thou/uL (130-400); RBC Distribution Width 12.1 % (11.5-14.5); Red Blood Cell (RBC) Count 3.46 mill/uL (4.70-6.10); White Blood Cell (WBC) Count 8.4 thou/uL (4.8-10.8)
[2018-06-18] MEDS ORDERED: Pantoprazole 40 MG VIAL ONE (15:37)
[2018-06-18] MEDS ORDERED: cefTRIAXone\\ROCEPHIN 1 GM VIAL ONE (15:37)
[2018-06-18 15:39] LABS: Bilirubin Small (Negative); Blood, Urine Negative (Negative); Clarity CLEAR (Clear); Glucose, Urine (Dipstick) Negative (Negative); Leukocyte Negative (Negative); Nitrite Negative (Negative); Protein, Urine (Dipstick) 30 mg/dL (Neg-Trace); Specific Gravity, Urine 1.019 (1.002-1.036); pH, Urine 5.5 (5.0-9.0)
[2018-06-18 15:43] LABS: Bacteria/HPF None Seen HPF (None Seen); Hyaline Casts/LPF 4-6 HYALINE CAST LPF (0-3 Hyaline); Pathc Cast-AUWi Flag 0.87 (0-2.49); RBC/HPF 0-3 HPF (0-3); Squamous Epithelial None Seen HPF (0-3); WBC/HPF None Seen HPF (0-3)
[2018-06-18] MEDS ORDERED: Ondansetron PF 4 MG/2 ML Vial IVP PRN (19:46)
[2018-06-18] MEDS ORDERED: Ondansetron ODT 4 MG TAB PO PRN (19:46)
[2018-06-18] MEDS ORDERED: Furosemide 40 MG/4 ML VIAL SLOW IVP SCH (20:00)
[2018-06-18 20:03] LABS: CKMB 1.3 ng/mL (0-6.6)
[2018-06-18] MEDS: Pantoprazole 40 MG VIAL IVP SCH (20:28)
--- NOTE | 2018-06-18 23:02 | HP ---
CHIEF COMPLAINT: Mental status change and GI bleed. History obtained from the son as patient is completely out and could not offer any history. HISTORY OF PRESENT ILLNESS: This is an 87-year-old gentleman who was discharged yesterday after being managed for congestive heart failure exacerbation with diuretics. The patient was discharged home according to records in stable condition. However, the patient was found today to have vomited copious amount of material, which include blood and also has evidence of melenic stool. The patient was picked up by the EMS and brought to the ER where the patient was noted to be hypotensive. IV fluid was administered with improvement in the hemodynamics of the patient. The patient noted to be febrile with temperature of up to 100. I could not get much of any history from the patient and much I could get is from the son and the [id number] who happened not to be around as patient lives alone. The patient is now being evaluated and admitted to [facility] for further management. The patient seems to be having some audible wheeze at this time of evaluation. PAST MEDICAL HISTORY AND FAMILY HISTORY AND SOCIAL HISTORY: Remain the same. For the details of this part of the history, refer to the note in the recent hospitalization. REVIEW OF SYSTEMS: Could not be obtained from this patient, who does not participate in this history taking. LABORATORY INVESTIGATIONS: Revealed a bicarb of 22, creatinine 1.81, BUN of 45, total bilirubin of 10.7 with liver enzymes okay and alkaline phosphatase of 164. CBC showed a hemoglobin of 12.2. Urinalysis is unremarkable. PHYSICAL EXAMINATION: GENERAL: The patient was found to be ill looking, but hemodynamically improved. VITAL SIGNS: Blood pressure of 120/78, respiratory rate of 20, O2 saturation of 99%. HEENT: Examination unremarkable except the raised jugular venous pressure. CARDIOVASCULAR SYSTEM: First and second heart sounds were heard. RESPIRATORY: Revealed some wheeze bilaterally. DIGESTIVE SYSTEM: Revealed an obese abdomen. EXTREMITIES: Showed 2 to 3+ bilateral lower extremity edema. NEURO: Revealed the patient is somnolent, but arousable. No lateralizing signs. LYMPHATICS: No peripheral lymphadenopathy. IMPRESSION: 1. Hypotension, query cause, possible incipient sepsis. 2. Gastrointestinal bleed in the context of coagulopathy with INR of 2.3. 3. Advanced congestive heart failure with systolic ejection fraction of about 25%. 4. Obesity. 5. Hyperbilirubinemia with elevated alkaline phosphatase concerning for cholestatic jaundice. 6. Chronic kidney disease, stage 3, stable. PLAN: 1. Admit patient to IMCU. 2. P.r.n. diuretics. 3. Blood cultures. The patient already received some antibiotics in the ER. We will follow the blood cultures. 4. We will repeat the liver function tests and if the bilirubin and alkaline phosphatase remains elevated tomorrow, we will likely request for right upper quadrant ultrasound to rule out cholelithiasis plus or minus cholangitis. 5. Renally dose all medications for low GFR. 6. Further management will be dependent on the clinical course. 7. We will go ahead and consult Cardiology and Gastroenterology. Meanwhile, the patient will be on IV Protonix for now. The patient remains n.p.o. 8. The code status is do not resuscitate, DNR. Discussed with the son confirmed by the bedside of the patient. CONDITION OF PATIENT: Guarded. Job ID: [id number]
[2018-06-19 00:34] VITALS: BMI 31.5
[2018-06-19 05:04] LABS: INR-International Normal Ratio 2.4
[2018-06-19 05:11] LABS: #Lymphocytes 0.7 thou/uL (1.20-3.40); #Monocytes 0.6 thou/uL (0.11-0.59); %Basophils 0.1 % (0.0-1.0); %Eosinophils 0.2 % (0.0-10.0); %Lymphocytes 10.7 % (21.0-51.0); %Monocytes 9.4 % (0.0-10.0); %Neutrophils 79.6 % (42.0-75.0); Hemoglobin 11.6 g/dL (14.0-18.0); Mean Corpuscular HGB CONC 32.8 g/dL (32.0-36.0); Mean Corpuscular Hemoglobin 34.7 pg (27.0-31.0); Mean Platelet Volume 7.9 fL (7.4-10.4); Platelet Count 107 thou/uL (130-400); RBC Distribution Width 12.2 % (11.5-14.5); Red Blood Cell (RBC) Count 3.35 mill/uL (4.70-6.10); White Blood Cell (WBC) Count 6.3 thou/uL (4.8-10.8)
[2018-06-19 05:24] LABS: ALT (SGPT) 15 U/L (8-55); AST (SGOT) 35 U/L (5-34); Albumin 3.3 g/dL (3.4-4.8); Alkaline Phosphatase 134 U/L (40-150); Anion Gap 17 mmol/L (10-20); BUN (Urea Nitrogen) 46 mg/dL (8.4-25.7); Bilirubin, Total 2.1 mg/dL (0.2-1.2); Calc. Creatinine Clearance 41 mL/min (70-130); Calcium 8.7 mg/dL (7.8-10.44); Carbon Dioxide 24 mmol/L (23-31); Chloride 102 mmol/L (98-107); Estimated GFR-MDRD 36; Globulin 2.7 g/dL (2.4-3.5); Glucose 112 mg/dL (83-110); Potassium 3.6 mmol/L (3.5-5.1); Sodium 139 mmol/L (136-145)
[2018-06-19] MEDS ORDERED: Enoxaparin Sodium 30 MG/0.3 ML SYRINGE SC SCH (09:00)
[2018-06-19] MEDS: Pantoprazole 40 MG VIAL IVP SCH ×2 (09:09→20:48)
--- NOTE | 2018-06-19 10:21 | CON ---
DATE OF CONSULTATION: 06/19/2018 CONSULTING PHYSICIAN: Katherine ryan. REASON FOR CONSULTATION: IMC placement. HISTORY OF THE PRESENT ILLNESS: An 87-year-old male, who was brought back into the hospital yesterday with altered mental status and possible GI bleeding. His mental status is back to baseline today. He apparently had an episode of vomiting, some brownish material and may have had a melanotic stool. He had just been in the hospital for congestive heart failure. He is very deaf and very hard to get a history from. His son is in the room. I have also reviewed the other medical records that are in the chart. PAST MEDICAL HISTORY: 1. Advanced age. 2. Peripheral vascular disease. 3. Rectal bleeding. 4. Pacemaker placement. PAST SURGICAL HISTORY: Pacemaker placement, cochlear implant, and hernia repair. PSYCHIATRIC HISTORY: Unremarkable. SOCIAL HISTORY: Nonsmoker. Does not consume alcohol or use illicit drugs. MEDICATIONS: Prior to admission; 1. Finasteride 5 mg daily. 2. Furosemide 40 mg daily. 3. Pravastatin 40 mg daily. 4. Metoprolol 25 mg b.i.d. 5. Warfarin 3 mg daily. REVIEW OF SYSTEMS: Otherwise negative. PHYSICAL EXAMINATION: VITAL SIGNS: Temperature 99.6, pulse 100, respirations 20, O2 saturation 97% on 3 L, and blood pressure 96/44. GENERAL: He is awake and alert, in no distress. HEENT: Unremarkable. NECK: No JVD. LUNGS: Clear to auscultation. CARDIAC: S1 and S2. Regular. ABDOMEN: Soft and nontender to palpation. EXTREMITIES: No edema. LABORATORY DATA: White blood cell count 6.3, hematocrit 35.5, and platelet count 107. INR 2.4. Sodium 139, potassium 3.6, chloride 102, CO2 of 24, BUN 46, creatinine 1.8, and glucose 112. ASSESSMENT: 1. Recent gastrointestinal bleed without evidence of acute hemorrhage at this time. 2. Altered mental status, which seems to improve to baseline. 3. Anticoagulated. PLAN: The patient can probably downgraded to even medical or telemetry floors. There is no acute pulmonary/critical care process. I will be happy to follow with you. Job ID: [id number]
--- NOTE | 2018-06-19 14:19 | PDOC.PN ---
- Subjective Encounter Start Date: 06/19/18 Encounter Start Time: 14:17 Subjective: Seen and examined seems much more awake today - Objective Resuscitation Status - Order Detail: 06/18/18 19:46 Resuscitation Status Routine Resuscitation Status: DNAR: NO Resuscitation Discussed with: confirmed with the son Vital Signs & Weight: Vital Signs (12 hours) Temp Pulse Resp BP Pulse Ox 06/19/18 11:17 99.7 F H 93 20 133/62 96 06/19/18 07:53 97 06/19/18 07:28 99.6 F 100 20 96/44 L 06/19/18 04:00 99.6 F 103 H 16 122/67 97 Weight Weight 219 lb 15.988 oz I&O: 06/18/18 06/19/18 06/20/18 06:59 06:59 06:59 Intake Total 10 Output Total 1000 Balance -990 Result Diagrams: 06/19/18 04:27 06/19/18 04:27 Phys Exam - Physical Examination Constitutional: NAD HEENT: PERRLA, moist MMs, sclera anicteric, TM's clear, oral pharynx no lesions Neck: no nodes, no JVD, supple, full ROM Respiratory: no wheezing, no rales, no rhonchi, clear to auscultation bilateral Cardiovascular: no significant murmur, no rub Gastrointestinal: soft, non-tender, no distention, positive bowel sounds Musculoskeletal: pulses present, edema present Neurological: non-focal, normal sensation, moves all 4 limbs Lymphatic: no nodes Skin: no rash, normal turgor, cap refill <2 seconds Dx/Plan (1) Encephalopathy Code(s): G93.40 - ENCEPHALOPATHY, UNSPECIFIED Status: Acute (2) Acquired hyperbilirubinemia Code(s): E80.6 - OTHER DISORDERS OF BILIRUBIN METABOLISM Status: Acute (3) Acute CHF (congestive heart failure) Code(s): I50.9 - HEART FAILURE, UNSPECIFIED Status: Acute Comment: EF 25-30% , check 2D echo, Lasix at 40mg IV BID, continue Zaroxolyn, cardiology consulted , patient with multiple unmeasured voids. Weight dropping significantly so seems to be diuresing well. (4) Atrial fibrillation Code(s): I48.91 - UNSPECIFIED ATRIAL FIBRILLATION Status: Chronic Comment: Currently paced, continue Coumadin, Metoprolol (5) Chronic anticoagulation Code(s): Z79.01 - HALFWAY (CURRENT) USE OF ANTICOAGULANTS Status: Chronic Comment: Daily PT/INR, continue Coumadin, will have pharmacy monitor in house (6) Generalized weakness Code(s): R53.1 - WEAKNESS Status: Chronic Comment: Patient ambulating well with PT, can go home with HH for PT when diuresed - Plan plan discussed w/ family, PT/OT, social insurance adviser, respiratory therapy Gentle diuresis -: if bilirubin remains elevated consider RUQ u/s * .
[2018-06-19] MEDS: Warfarin Sodium 3 MG TAB PO SCH (18:00)
--- NOTE | 2018-06-19 18:14 | CON ---
DATE OF CONSULTATION: 06/19/2018 GI INPATIENT CONSULTATION NOTE REASON FOR CONSULTATION: Concern for GI bleeding. HISTORY OF PRESENT ILLNESS: Alejandro Jung is an 87-year-old man with a history of congestive heart failure, peripheral vascular disease, and pacemaker placement. He was recently hospitalized here for several days for treatment of CHF exacerbation. He was discharged a couple of days ago. He was re-admitted to the hospital last night due to vomiting of black material. His daughter was with him and witnessed this. She says it appeared to be a large amount of very jet black vomitus. There was no meagan hematemesis. It was concerning for possible bleeding. Upon arrival, the patient's blood pressures were a bit low. Notably, hemoglobin is at baseline. He has been stable overnight. There have been no further episodes of emesis. No reported melena. No bowel movements since his arrival here. The patient denies any abdominal pain or any current nausea. Notably, the patient underwent EGD and colonoscopy fairly recently in October 2017, with Dr. Bunn. This was essentially a normal exam. I see the pathology report showing a single descending colon polyp having been removed, single benign fundic gland polyp removed from the stomach, and gastric biopsy showing only mild gastritis. PAST MEDICAL HISTORY: 1. Advanced age. 2. Peripheral vascular disease. 3. Pacemaker placement. 4. Cochlear implant. 5. Hernia repair. 6. Congestive heart failure. 7. Chronic kidney disease. 8. Atrial fibrillation. 9. Chronic anticoagulation, on Coumadin. REVIEW OF SYSTEMS: Full review of systems including constitutional, head, eyes, ears, nose, throat, GI, , cardiovascular, respiratory, musculoskeletal, and neurologic systems is negative except as noted in the HPI. SOCIAL HISTORY: The patient does live at home. He has very supportive family, who lives nearby. He is a nonsmoker. No alcohol or drug use. FAMILY HISTORY: Noncontributory. MEDICATIONS: 1. Finasteride. 2. Furosemide 40 mg daily. 3. Pravastatin 40 mg daily. 4. Metoprolol 25 mg b.i.d. 5. Warfarin 3 mg daily. ALLERGIES: 1. APIXABAN. 2. BEE VENOM. PHYSICAL EXAMINATION: VITAL SIGNS: Temperature 99.7, pulse 93, blood pressure 133/62, 96% oxygen saturation on 3 L nasal cannula. GENERAL: Elderly, obese, 87-year-old gentleman, lying in bed comfortably, in no distress. Hard of hearing. MENTAL: Alert and oriented. Difficult to communicate as he is hard of hearing, but he is oriented. SKIN: No jaundice. No rashes that were palpable. EYES: No scleral icterus. Extraocular movements intact. ENT: Mucous membranes moist. No oral lesions. LYMPH: No submandibular or supraclavicular lymphadenopathy. THYROID: Nontender to palpation. HEART: Regular rate and rhythm. LUNGS: Clear to auscultation bilaterally. ABDOMEN: Obese. Bowel sounds present. Soft. Nontender to deep palpation throughout. EXTREMITIES: 1+ bilateral lower extremity edema. NEUROLOGIC: Cranial nerves 2 through 12 intact bilaterally. LABORATORY STUDIES: Hemoglobin is 11.6, which is at his baseline; MCV 106; WBC 6.3; platelets 107. INR is 2.4, which is within therapeutic range for him. Sodium 139, potassium 4.0, BUN 45, creatinine 1.81, this is all stable over the past several days. Lactic acid less than 0.2. Glucose 97. Total bilirubin 2.7, this is a stable chronic elevation as well. Alkaline phosphatase 164, AST 27, ALT 13, albumin 3.5. IMAGING STUDIES: Brain CT performed yesterday showed no acute process. Chest x-ray performed yesterday showed marked cardiomegaly, but overall stable exam. ASSESSMENT AND PLAN: 1. Possible hematemesis, resolved. 2. Coagulopathy, with INR in therapeutic range on Coumadin. The patient has had no evidence of overt gastrointestinal bleeding since admission. It is really unclear whether this dark emesis that he had yesterday even represented a true hematemesis. His hemoglobin and BUN are both at his normal baseline. He is not having any other abdominal symptoms today. Given that he does appear to have had a fairly recent EGD and colonoscopy in October 2017, I see no indication for endoscopic investigation at this time. I would trend the H and H tomorrow, continue IV PPI until then. I think he can eat today. If his H and H remain stable and no further evidence of overt bleeding tomorrow, then I think we will probably be able to avoid endoscopy altogether. This is the wish of the patient's family as well. Thank you for the consultation. Please call anytime with questions or concerns. Job ID: [id number]
--- NOTE | 2018-06-19 20:47 | CON ---
DATE OF CONSULTATION: 06/19/2018 INTERIM NOTE HISTORY OF PRESENT ILLNESS: Mr. Jung is an 87-year-old gentleman who was recently discharged to the hospital about 2 days ago. He has cardiomyopathy with severely dilated atrium. He has had status post biventricular AICD. He has had a history of coronary artery disease in the past. He had been in the hospital for congestive heart failure. He then was discharged to home. He lives alone and family members have been arranging for someone to take care of him, as well as his medications. They arrived to check on the patient about 9 o'clock in the morning yesterday and the patient was sitting on the side of the bed, was disoriented and had some evidence of nausea and vomiting. He apparently had some hematemesis. The patient appeared to be somewhat dehydrated. When his son had left in the night before, he was doing quite well, was very coherent, had eaten dinner, and had no complaints. He has had no significant history of GI bleeding in the past. His hemoglobin actually was not significantly changed. His INR was 2.3. His hemoglobin was 12.2, is now dropped down to 11.6. When he previously was in the hospital, his hemoglobin also was stable at 11.1. When he was discharged, his hemoglobin was I believe 12.5. There is no indication that he has had any significant GI bleed. No signs that it was dark hematemesis that he had noticed when the patient had previously vomited. They did not witness any vomiting at that time. He is still somewhat confused, but is more alert this afternoon according to the family than when he was this morning. Otherwise, there have been no significant changes in his past medical history, social history, family history, review of systems, and medications. PHYSICAL EXAMINATION: GENERAL: Reveals an elderly gentleman. He is in no acute distress at this time. VITAL SIGNS: Temperature is 99.7, heart rate is 93. He has underlying atrial fibrillation. He is occasionally paced. Respiratory rate is 20, blood pressure is 133/62. HEENT: Shows head to be normocephalic and atraumatic. There are no contusions noted. His carotid pulses are present without any significant bruits. CHEST: He has a few basilar rales noted, otherwise unremarkable. He has decreased inspiratory effort. CARDIOVASCULAR: He has irregular rhythm. He has a systolic murmur at the apex, also in the lower sternal border. He has well-healed surgical incision underneath the left infraclavicular area after AICD implant. ABDOMEN: Soft and nontender. Did not see any particular masses, otherwise is unremarkable. EXTREMITIES: Show minimal ankle edema, otherwise no lower extremity edema. SKIN: Warm and dry. NEUROLOGICAL: He appears to be somewhat confused at times but is able to converse relatively reasonable, but still obviously does have some problems with hearing. At this time, he is overall stable from my perspective. There has been no significant change since the last time I saw him. We will continue to follow him with you on a p.r.n. basis. I do not think that this was an issue with significant bleeding and I would resume his Coumadin. We originally thought he had a GI bleed and this will be held, but I believe we will continue with his Coumadin to decrease the risk of CVA due to embolic phenomenon. I have discussed with his family that most likely he will need to be placed in the residential and I believe they have already anticipated this and are searching for placement at this time. Otherwise, we will continue his medications as you are as possible. He did have some dehydration. We may need to cut back on his diuretics for a short period of time, but he did have significant lower extremity edema and has severe mitral and tricuspid valve regurgitation with severely dilated atriums and will need some diuretics. Otherwise, he will continue to have further episodes of congestive heart failure. Job ID: [id number]
[2018-06-20] MEDS: Acetaminophen 325 MG TAB PO PRN ×2 (00:17→10:34)
[2018-06-20 05:23] LABS: INR-International Normal Ratio 2.3; Prothrombin Time 25.5 SEC (12.0-14.7)
[2018-06-20 05:38] LABS: ALT (SGPT) 15 U/L (8-55); AST (SGOT) 41 U/L (5-34); Albumin 3.3 g/dL (3.4-4.8); Alkaline Phosphatase 128 U/L (40-150); Anion Gap 15 mmol/L (10-20); BUN (Urea Nitrogen) 43 mg/dL (8.4-25.7); Calc. Creatinine Clearance 46 mL/min (70-130); Calcium 8.8 mg/dL (7.8-10.44); Carbon Dioxide 25 mmol/L (23-31); Chloride 103 mmol/L (98-107); Estimated GFR-MDRD 41; Globulin 2.7 g/dL (2.4-3.5); Glucose 123 mg/dL (83-110); Potassium 3.2 mmol/L (3.5-5.1); Sodium 140 mmol/L (136-145)
[2018-06-20] MEDS ORDERED: Potassium Chloride 20 MEQ TAB PO SCH (09:00)
--- NOTE | 2018-06-20 09:32 | PRG ---
DATE OF SERVICE: 06/20/2018 SUBJECTIVE: The patient is seen and examined at the bedside. He ate part of his breakfast this morning. Overall, he feels quite good. OBJECTIVE: VITAL SIGNS: Blood pressure is 120/58, temperature is 98.4, maximal temperature is 100.4, pulse is 79, respirations are 17, O2 saturation is 100% on 2 L by nasal cannula. HEENT: His head is atraumatic and normocephalic. Eyes are PERRLA. Sclerae are nonicteric. Oral mucosa is moist. NECK: Supple. LUNGS: Breath sounds diminished at both bases. HEART: S1 and S2, somewhat irregular. No S3. No S4. ABDOMEN: Soft, nondistended. Tender in deeper palpation in the right upper quadrant. Bowel sounds are present. No organomegaly. EXTREMITIES: No clubbing, cyanosis, or edema. NEUROLOGICAL: He follows my commands. He knows where he is at. He knows the month. He does not know the day. He moves his all 4 extremities. There are no any motor deficits. LABORATORY DATA: Showed INR of 2.3, PTT of 25.5. Sodium 140, potassium 3.2, chloride 103, CO2 of 25, BUN 43, creatinine 1.59, glucose 123. Total bilirubin 2.0, AST 41, ALT 15, and alkaline phosphatase 128, albumin 3.3, and the rest of chemistry is within normal limits. Microbiology showed normal blood cultures without any growth, and urine, no growth in 12 hours. IMPRESSION: 1. Encephalopathy acute, improved. 2. Fever of unclear etiology. Blood cultures and urine cultures were negative. He has some abdominal discomfort during my examination. We will do the abdominal ultrasound. 3. Acute congestive heart failure. Left ventricular ejection fraction is 25% to 30%. 4. Chronic atrial fibrillation. 5. Chronic anticoagulation. 6. Generalized weakness. PLAN: Plan is to obtain ultrasound of the abdomen. Continue his pantoprazole 40 mg IV push every 12 hours. Continue warfarin. Start his furosemide, metoprolol, and finasteride. Job ID: [id number]
--- NOTE | 2018-06-20 10:12 | PRG ---
DATE OF SERVICE: 06/20/2018 This is a GI inpatient daily progress note. SUBJECTIVE: Mr. Jung is feeling okay. He denies any nausea or abdominal pain. He has had no further emesis. No report of melena. He has remained hemodynamically stable. OBJECTIVE: VITAL SIGNS: Temperature 98.4, pulse 83, blood pressure 120/58, and 95% oxygen saturation on room air. GENERAL: No acute distress. HEART: Regular rate and rhythm. LUNGS: Clear to auscultation bilaterally. ABDOMEN: Bowel sounds present. Soft and nontender to palpation throughout. EXTREMITIES: No peripheral edema. LABORATORY STUDIES: BUN 43, creatinine 1.59, total bilirubin 2.0, alkaline phosphatase 128, AST 41, and ALT 15. INR is 2.3. Last hemoglobin was 11.6, WBC 6.3, and platelets 107. ASSESSMENT AND PLAN: 1. Possible hematemesis, single episode, has not recurred. 2. Coagulopathy, stable. There has been no further evidence of overt gastrointestinal bleeding just prior to admission. He remains quite stable, tolerating his diet. No need for any endoscopic investigation. GI will sign off, but please call back anytime with questions or concerns. Job ID: [id number]
[2018-06-20] MEDS: Pantoprazole 40 MG VIAL IVP SCH ×2 (10:28→20:11)
[2018-06-20] MEDS ORDERED: Finasteride 5 MG TAB PO SCH (11:00)
[2018-06-20] MEDS ORDERED: Furosemide 40 MG TAB PO SCH (11:00)
--- NOTE | 2018-06-20 13:00 | ULT ---
RIGHT UPPER QUADRANT ULTRASOUND: HISTORY: Abdominal pain. Fever. Elevated bilirubin. FINDINGS: There is mild nodularity of the liver surface. No focal mass or intrahepatic duct dilatation is seen . No gallstones are identified. The gallbladder wall is at upper limits of normal in thickness nilesh uring 3 mm. The common duct measures 6 mm in diameter. The right kidney and visualized portions of the pancreas are unremarkable. A small amount of free fluid is seen. A large right pleural effusion is noted. IMPRESSION: 1. Probable cirrhosis of the liver. 2. No gallstones. 3. Small amount of ascites. 4. Large right pleural effusion. POS: [facility]
--- NOTE | 2018-06-20 13:31 | PRG ---
DATE OF SERVICE: 06/20/2018 SUBJECTIVE: The patient is doing better. He has his hearing aid in today. He indicated to me that he wants to go home. OBJECTIVE: VITAL SIGNS: Temperature 98.9, pulse 83, respirations 13, O2 saturation 96% on room air, blood pressure 113/66. HEENT: Unremarkable. NECK: No JVD. CHEST: Clear. CARDIAC: S1 and S2. Regular. ABDOMEN: Soft. EXTREMITIES: No edema. LABORATORY DATA: Sodium 140, potassium 3.2, BUN 43, creatinine 1.5, and glucose 123. ASSESSMENT: 1. Encephalopathy, which has improved. 2. Possible gastrointestinal bleeding-no indication of active bleeding on current workup. 3. Chronic atrial fibrillation. 4. Chronically anticoagulated. PLAN: The patient is ready to move to the floor. There are no active pulmonary issues. I will sign off. Please re-call if further assistance is needed. Job ID: [id number]
--- NOTE | 2018-06-20 14:30 | PDOC.CTH ---
Cardiology Progress Note - Subjective No new issues. No more vomiting or bleeding. - Objective Vital Signs Temp Pulse Resp BP Pulse Ox 06/20/18 11:32 98.9 F 83 13 113/66 96 06/20/18 08:00 98.4 F 83 16 120/58 L 95 06/20/18 04:00 99.1 F 79 17 117/60 100 Weight 219 lb 15.988 oz 06/19/18 06/20/18 06/21/18 06:59 06:59 06:59 Intake Total 10 910 Output Total 1000 1650 Balance -990 -740 - Physical Examination General/Neuro: alert & oriented x3, NAD Neck: no JVD present Lungs: unlabored respirations Heart: RRR Abdomen: NT/ND Extremities: + edema B (trace) - Telemetry Telemetry Rhythm: NSR - Labs Result Diagrams: 06/19/18 04:27 06/20/18 05:02 Troponin/CKMB CK-MB (CK-2) 1.3 ng/mL (0-6.6) 06/18/18 19:10 Troponin I 0.037 ng/mL (< 0.028) H 06/18/18 19:10 - Assessment/Plan 1. Chronic afib 2. Chronic anticoagulation with warfarion 3. Possible GI bleed, not active. PLAN: - Continue same med. - Replace K. - Placement.
[2018-06-20] MEDS: Warfarin Sodium 3 MG TAB PO SCH (18:48)
[2018-06-20] MEDS ORDERED: Acetaminophen 500 MG TAB PO SCH (21:00)
[2018-06-20] MEDS ORDERED: diphenhydrAMINE 25 MG CAP PO SCH (21:00)
--- NOTE | 2018-06-20 21:01 | EKG ---
Test Reason : AMS,HYPOTENSION,FEVE Blood Pressure : / mmHG Vent. Rate : 109 BPM Atrial Rate : 109 BPM P-R Int : 000 ms QRS Dur : 120 ms QT Int : 336 ms P-R-T Axes : 000 -60 116 degrees QTc Int : 452 ms Atrial fibrillation with rapid ventricular response with occasional Premature ventricular complexes Wide QRS rhythm with occasional Premature ventricular complexes Left axis deviation Non-specific intra-ventricular conduction delay Abnormal QRS-T angle, consider primary T wave abnormality Abnormal ECG Confirmed by LILIA LONGO, MALAIKA Sena ([id number]), newspaper photo editor ANDRE BARCENAS ([id number]) on 06/20/2018 9:00:44 PM Referred By: ERMD Confirmed By:MALAIKA RODRIGUES MD
[2018-06-21 04:59] LABS: Hemoglobin 12.1 g/dL (14.0-18.0); Platelet Count 89 thou/uL (130-400)
[2018-06-21 05:04] LABS: INR-International Normal Ratio 2.5
[2018-06-21] MEDS: Pantoprazole 40 MG VIAL IVP SCH ×2 (08:46→21:08)
[2018-06-21] MEDS: Furosemide 40 MG TAB PO SCH (08:46)
[2018-06-21] MEDS: Finasteride 5 MG TAB PO SCH (08:47)
--- NOTE | 2018-06-21 10:51 | PRG ---
DATE OF SERVICE: 06/21/2018 SUBJECTIVE: The patient is seen and examined at the bedside. He seems to be comfortable lying in the recumbent position in bed. The nurse noticed some specks of clots in his Sparks catheter tube yesterday, so she held the Coumadin last night. OBJECTIVE: VITAL SIGNS: Blood pressure is 125/61, pulse is 76, temperature is 98.8, respiratory rate is 21, O2 saturation is 93% on room air. HEENT: His head is atraumatic and normocephalic. Eyes are PERRLA. Sclerae are nonicteric. Oral mucosa is moist. NECK: Supple. LUNGS: Breath sounds somewhat diminished at the right base. HEART: S1, S2 normal. No S3. No S4. No any murmur. ABDOMEN: Soft, nontender. Bowel sounds are present. No organomegaly. EXTREMITIES: No clubbing, cyanosis, or edema. NEUROLOGICAL: He follows my commands. He knows the place. He knows the time. LABORATORY DATA: Labs showed hemoglobin of 12.1, hematocrit 37.6. INR is 2.5, PT of 27.0. Abdominal ultrasound showed suspicion for liver cirrhosis and large right pleural effusion and small amount of ascites. IMPRESSION: 1. Encephalopathy acute, improved. 2. Fever of unclear etiology, resolved. 3. Acute congestive heart failure with LVEF of 25% to 30%. 4. Chronic atrial fibrillation, on Coumadin. 5. Chronic anticoagulation. 6. Generalized weakness. 7. Some suspicion for hematuria. We will obtain a UA and if this is negative, we will remove the Sparks catheter. 8. Right pleural effusion. We will do the chest x-ray to get more information about the current status. Clinically, he does not look like he is in some respiratory distress. We will continue current regimen and we are going to look for some placement on Friday. Job ID: [id number]
--- NOTE | 2018-06-21 10:59 | PDOC.CTH ---
Cardiology Progress Note - Subjective He is doing well. Breathing a little harder today than yesterday. - Objective Vital Signs Temp Pulse Resp BP Pulse Ox 06/21/18 08:00 98.8 F 76 21 H 125/61 93 L 06/21/18 04:12 98.5 F 74 18 117/65 92 L 06/21/18 00:00 98.8 F 74 18 102/61 93 L Weight 219 lb 15.988 oz 06/20/18 06/21/18 06/22/18 06:59 06:59 06:59 Intake Total 910 3300 Output Total 1650 750 Balance -740 2550 - Physical Examination General/Neuro: NAD Neck: no JVD present Lungs: CTA, unlabored respirations Heart: RRR Abdomen: NT/ND Extremities: + edema B (1+) - Telemetry Telemetry Rhythm: NR - Labs Result Diagrams: 06/21/18 04:39 06/20/18 05:02 Troponin/CKMB CK-MB (CK-2) 1.3 ng/mL (0-6.6) 06/18/18 19:10 Troponin I 0.037 ng/mL (< 0.028) H 06/18/18 19:10 - Assessment/Plan 1. Chronic afib 2. Chronic anticoagulation with warfarin 3. Possible GI bleed, not active. Hgb stable. 4. Liver Cirrhosis per US. PLAN: - Would recommend have GI re evaluate and if they think he has cirrhosis we may have to reconsider full anticoagulation given the high risk of bleeding in this setting.
--- NOTE | 2018-06-21 11:24 | RAD ---
RADIOGRAPH CHEST 1 VIEW: DATE: 06/21/2018. TIME: 9:31 a.m. HISTORY: An 87-year-old male with pleural effusion. FINDINGS: There is severe cardiomegaly. There is no evidence of air space density, pulmonary edema, or pneumoth orax. The lateral costophrenic angles are sharp. There is mild pulmonary venous congestion. There i s a left subclavian AICD. There is no interval change overall since 06/18/2018. To evaluate for pleu ral effusion, a lateral view would be recommended. IMPRESSION: 1) No acute pulmonary findings. 2) Severe cardiomegaly. arlene [] POS: [facility]
[2018-06-21 13:14] LABS: Bilirubin Small (Negative); Blood, Urine Large (Negative); Clarity CLOUDY (Clear); Glucose, Urine (Dipstick) Negative (Negative); Leukocyte Large (Negative); Nitrite Negative (Negative); Protein, Urine (Dipstick) 30 mg/dL (Neg-Trace); pH, Urine 5.5 (5.0-9.0)
[2018-06-21 13:16] LABS: Bacteria/HPF None Seen HPF (None Seen); Pathc Cast-AUWi Flag 0.72 (0-2.49); Squamous Epithelial None Seen HPF (0-3)
[2018-06-21 13:24] LABS: Yeast-AUWi Flag 49.1 (0-25.0)
[2018-06-21 13:33] LABS: Hyaline Casts/LPF 0-3 HYALINE CAST LPF (0-3 Hyaline); RBC/HPF 21-50 HPF (0-3); Yeast-All Forms None Seen HPF (None Seen)
[2018-06-21] MEDS: Warfarin Sodium 3 MG TAB PO SCH (17:59)
[2018-06-22 05:24] LABS: INR-International Normal Ratio 2.6
[2018-06-22] MEDS: Pantoprazole 40 MG VIAL IVP SCH ×2 (09:27→20:43)
[2018-06-22] MEDS: Furosemide 40 MG TAB PO SCH (09:31)
[2018-06-22] MEDS: Metolazone 5 MG TAB PO SCH (09:31)
[2018-06-22] MEDS: Finasteride 5 MG TAB PO SCH (09:32)
[2018-06-22] MEDS: cefTRIAXone\\ROCEPHIN 1 GM in Sodium Chloride 0.9% 100 ML IVPB SCH (10:29)
--- NOTE | 2018-06-22 11:26 | PRG ---
DATE OF SERVICE: 06/22/2018 SUBJECTIVE: The patient is seen and examined at the bedside. He is asking me when we can pull the Sparks catheter out. He does not have any other complaints to offer. OBJECTIVE: VITAL SIGNS: Blood pressure is 118/60, pulse is 77, temperature is 98.1, respiratory rate is 20, O2 saturation is 93% on room air. HEENT: His head is atraumatic and normocephalic. Eyes are PERRLA. Sclerae are nonicteric. Oral mucosa is moist. NECK: Supple. No lymphadenopathy. LUNGS: Clear. HEART: S1 and S2 normal. No S3. No S4. ABDOMEN: Soft, nontender. EXTREMITIES: No clubbing, cyanosis, or edema. NEUROLOGICAL: He is able to answer my questions. He moves his all 4 extremities. There is no any motor or sensory deficits. Cranial nerves are intact. LABORATORY DATA: Labs showed INR of 2.6 and PT of 28.0. Urinalysis showed 30 of proteins, trace of ketones, large amount of blood, small amount of bilirubin, large amount of leukocyte esterase, 21 to 50 rbc's, and greater than 50 to TNTC on urine wbc's, otherwise, urinalysis is within normal limits. Microbiology, no new findings. IMPRESSION: 1. Encephalopathy, acute resolved. 2. Sparks associated urinary tract infection. 3. Acute congestive heart failure with left ventricular ejection fraction of 25% to 30%. 4. Chronic atrial fibrillation. 5. Chronic anticoagulation with Coumadin. 6. Generalized weakness. 7. Right pleural effusion based on ultrasound of the abdomen findings, but not confirmed by chest x-ray as significant pleural effusion. 8. Suspected liver cirrhosis per ultrasound of the abdomen findings. PLAN: The patient is properly anticoagulated. Medical Sales recommends to discuss this again with a manager cable regarding his liver cirrhosis and anticoagulation. This will be done today. Clinically, he looks stable, but urinalysis showed UTI Sparks related, so the Sparks will be removed and he will be started on Rocephin 1 g every 24 hours and urine culture will be done. Also, he is going to be screen by the rehab and when we have final culture on his urine, he will be transferred to the rehab. Job ID: [id number]
--- NOTE | 2018-06-22 13:10 | PDOC.CTH ---
Cardiology Progress Note - Subjective The pt seen and examined. No overnight events. No cardiac complaints. - Objective Vital Signs Temp Pulse Pulse Pulse Resp BP BP 06/22/18 11:00 75 18 06/22/18 10:38 89 82 135/67 109/69 06/22/18 08:00 06/22/18 07:21 98.1 F 77 20 06/22/18 04:00 98.0 F 73 18 BP Pulse Ox Pulse Ox Pulse Ox 06/22/18 11:00 135/67 95 06/22/18 10:38 93 L 95 06/22/18 08:00 94 L 06/22/18 07:21 118/60 93 L 06/22/18 04:00 103/72 91 L Weight 219 lb 15.988 oz 06/21/18 06/22/18 06/23/18 06:59 06:59 06:59 Intake Total 3300 1450 Output Total 750 850 Balance 2550 600 - Physical Examination General/Neuro: alert & oriented x3 Neck: no JVD present Lungs: other: (diminished at bases) Heart: other: (irregular) Abdomen: soft Extremities: other: (1-2+ pitting edema to bilat ankles) - Telemetry Telemetry Rhythm: Afib BiV paced - Labs Result Diagrams: 06/23/18 04:41 06/20/18 05:02 Troponin/CKMB CK-MB (CK-2) 1.3 ng/mL (0-6.6) 06/18/18 19:10 Troponin I 0.037 ng/mL (< 0.028) H 06/18/18 19:10 - Assessment/Plan 1. Chronic afib with Chronic anticoagulation with warfarin - Well controlled HR ; On Coumadin since no bleeding from GI with stable H&H. Coumadin dose will be managed by pharmacy, but may reconsider full OAC 2/2 possible Liver chrosis per U/S. 2. Chronic systolic HF - stable; on BBlocker and Lasix, but no ITALO/ARB 2/2 hx of CKD 3. Possible GI bleed - not active. Hgb stable. 4. Liver Cirrhosis per US 5. CKD - no changed 6. HTN - stable 7. BiV AICD placement MAR reviewed Pt. seen and eval. by me. No cardiac problems . I agree with the A/P by the LEGAL SECRETARY RECEPTIONIST. Chest clear. Irreg, no edema. Cardiac status stable. Review of Systems - Review of Systems Constitutional: reports: weakness EENTM: reports: no symptoms reported Respiratory: reports: no symptoms reported Cardiac (ROS): reports: no symptoms reported ABD/GI: reports: no symptoms reported : reports: no symptoms reported Musculoskeletal: reports: no symptoms reported
[2018-06-22] MEDS: Warfarin Sodium 3 MG TAB PO SCH (17:57)
[2018-06-23 05:03] LABS: Hemoglobin 12.1 g/dL (14.0-18.0); Platelet Count 87 thou/uL (130-400)
[2018-06-23 05:04] LABS: Prothrombin Time 31.3 SEC (12.0-14.7)
--- NOTE | 2018-06-23 08:34 | PDOC.CTH ---
Cardiology Progress Note - Subjective The pt seen and examined. No overnight events. No cardiac complaints. GI service has not re-consulted the pt for possible liver cirrhosis. The pt denied any ABD pain or bloating. - Objective Vital Signs Temp Pulse Resp BP Pulse Ox 06/23/18 07:38 97.6 F 71 19 108/66 92 L 06/23/18 04:00 98.1 F 86 18 105/65 95 06/22/18 23:55 97.7 F 79 18 101/63 95 Weight 219 lb 15.988 oz 06/22/18 06/23/18 06/24/18 06:59 06:59 06:59 Intake Total 1450 1620 Output Total 850 2150 Balance 600 -530 - Physical Examination General/Neuro: alert & oriented x3 Neck: no JVD present Lungs: other: (diminished at bases) Heart: other: (irregular) Abdomen: soft Extremities: other: (3+ pitting BKE edema) - Telemetry Telemetry Rhythm: ViB paced - Labs Result Diagrams: 06/23/18 04:41 06/20/18 05:02 Troponin/CKMB CK-MB (CK-2) 1.3 ng/mL (0-6.6) 06/18/18 19:10 Troponin I 0.037 ng/mL (< 0.028) H 06/18/18 19:10 - Assessment/Plan 1. Chronic afib with Chronic anticoagulation with warfarin - Well controlled HR ; On Coumadin since no bleeding from GI with stable H&H. Coumadin dose will be managed by pharmacy, but may reconsider full OAC 2/2 possible Liver cirrhosis per U/S. 2. Chronic systolic HF - stable; on BBlocker and Lasix, but no ITALO/ARB 2/2 hx of CKD 3. Possible GI bleed - not active. Hgb stable. 4. Liver Cirrhosis per US 5. CKD - no changed 6. HTN - stable 7. BiV AICD placement MAR reviewed Pt. seen and eval. by me. No cardiac problems . I agree with the A/P by the FINANCIAL SYSTEMS DIRECTOR. Chest clear. Irreg, no edema. Cardiac status stable. Review of Systems - Review of Systems Constitutional: reports: weakness EENTM: reports: no symptoms reported Respiratory: reports: no symptoms reported Cardiac (ROS): reports: no symptoms reported ABD/GI: reports: no symptoms reported : reports: no symptoms reported Musculoskeletal: reports: no symptoms reported
--- NOTE | 2018-06-23 08:45 | PDOC.PN ---
- Subjective Encounter Start Date: 06/23/18 Encounter Start Time: 08:44 Mr. Jung was seen today in follow-up of probable GI- bleed. He does not have any complaints. He says he is breathing fine. He is looking forward to going to Rehab. - Objective Resuscitation Status - Order Detail: 06/18/18 19:46 Resuscitation Status Routine Resuscitation Status: DNAR: NO Resuscitation Discussed with: confirmed with the son DIMITRIS Reviewed: Yes Vital Signs & Weight: Vital Signs (12 hours) Temp Pulse Resp BP Pulse Ox 06/23/18 07:38 97.6 F 71 19 108/66 92 L 06/23/18 04:00 98.1 F 86 18 105/65 95 06/22/18 23:55 97.7 F 79 18 101/63 95 Weight Weight 219 lb 15.988 oz I&O: 06/22/18 06/23/18 06/24/18 06:59 06:59 06:59 Intake Total 1450 1620 Output Total 850 2150 Balance 600 -530 Result Diagrams: 06/23/18 04:41 06/20/18 05:02 Phys Exam - Physical Examination HEENT: PERRLA Respiratory: no wheezing, no rales, no rhonchi, clear to auscultation bilateral Cardiovascular: RRR, no significant murmur, no rub Gastrointestinal: soft, non-tender, no distention, positive bowel sounds Musculoskeletal: pulses present, edema present 1+ pitting edema, with chronic venous stasis changes Dx/Plan (1) GI bleed Code(s): K92.2 - GASTROINTESTINAL HEMORRHAGE, UNSPECIFIED Status: Acute (2) Chronic systolic heart failure Code(s): I50.22 - CHRONIC SYSTOLIC (CONGESTIVE) HEART FAILURE Status: Chronic (3) AVRIL (acute kidney injury) Code(s): N17.9 - ACUTE KIDNEY FAILURE, UNSPECIFIED Status: Acute Comment: Avoid nephrotoxic meds and limit contrast exposure, serial creatinine, stable (4) Atrial fibrillation Code(s): I48.91 - UNSPECIFIED ATRIAL FIBRILLATION Status: Chronic Comment: Currently paced, continue Coumadin, Metoprolol (5) Chronic anticoagulation Code(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 Protonix Q 12, but will change to oral * Chronic AFIB- his heart rate is stable * Chronic systolic heart failure- compensated * Possible cirrhosis- stable * Await rehab transfer
[2018-06-23] MEDS: Furosemide 40 MG TAB PO SCH (08:56)
[2018-06-23] MEDS: Finasteride 5 MG TAB PO SCH (08:57)
[2018-06-23] MEDS: cefTRIAXone\\ROCEPHIN 1 GM in Sodium Chloride 0.9% 100 ML IVPB SCH (08:57)
[2018-06-23] MEDS: Pantoprazole 40 MG VIAL IVP SCH ×2 (08:57→19:55)
--- NOTE | 2018-06-23 14:21 | PQF ---
[employer] Financial Management Consultant Crystal Reports Winform ViewerCARONDELET ST. JOSEPH'S HOSPITALYAA,JASSON CHAVIRA MD [id number] CARLEY BECERRA [id number] CLINICAL DOCUMENTATION IMPROVEMENT CLARIFICATION FORM: ICD-10 Updated PLEASE DO AN ADDENDUM TO THE PROGRESS NOTE WITH ANY DOCUMENTATION UPDATES OR ADDITIONS AND CARRY THROUGH TO DC SUMMARY. THANK YOU. DATE: 06/23/2018 ATTN: DR. YAN Please exercise your independent, professional judgment in responding to the clarification form. Clinical indicators are provided on the bottom of this form for your review Please check appropriate box(s): [ ] Encephalopathy: Type: [ ] Acute [ ] Subacute [ ] Chronic Etiology: [ ] Metabolic [ ] Septic [ ] Toxic [ ] Unspecified [ ] Other (please specify) [ ] Transient Alteration of Awareness [ ] Other diagnosis [ x] Unable to determine For continuity of documentation, please document condition throughout progress notes and discharge summary. Thank You. CLINICAL INDICATORS - SIGNS / SYMPTOMS / LABS 06/18-ER: VOMITING SINCE 89 AND HAS MENTAL STATUS CHANGES AND PER FAMILY PT IS NORMALLY A&Ox4. 06/18-H&P-EZ: HERE FOR MENTAL STATUS CHANGE. NEURO REVEALED THE PT IS SOMNOLENT, BUT AROUSABLE. 06/19-EZ: ACUTE ENCEPHALOPATHY. SEEMS MUCH MORE AWAKE TODAY. 06/20-CHM: ACUTE CHF. ACUTE ENCEPHALOPATHY. FEVER OF UNCLEAR ETIOLOGY. 06/21-CHM: ACUTE ENCEPHALOPATHY. RISK FACTORS Vomiting Fever Probable Gi Bleed Advanced Age TREATMENTS Neuro checks / neurology consult Cause is corrected encephalopathy resolves IV antibiotics IV fluids Thank You, Sidra (This form is maintained as a part of the permanent medical record) 2014 [employer]. All Rights Reserved Sidra Salter RN, CDIS [email or web address] [phone] [facility]
[2018-06-23] MEDS: Warfarin Sodium 3 MG TAB PO SCH (17:15)
[2018-06-24 04:55] LABS: Prothrombin Time 31.2 SEC (12.0-14.7)
[2018-06-24] MEDS: Furosemide 40 MG TAB PO SCH (08:23)
[2018-06-24] MEDS: Pantoprazole 40 MG VIAL IVP SCH (08:23)
[2018-06-24] MEDS: Finasteride 5 MG TAB PO SCH (08:23)
[2018-06-24] MEDS: cefTRIAXone\\ROCEPHIN 1 GM in Sodium Chloride 0.9% 100 ML IVPB SCH (09:51)
--- NOTE | 2018-06-24 10:30 | PDOC.PN ---
- Subjective Encounter Start Date: 06/24/18 Encounter Start Time: 10:28 Mr. Jung was seen today in follow-up of GI- Bleed. He does not have any complaints other than he feels weak, and " doesn't know what happened to him. - Objective Resuscitation Status - Order Detail: 06/18/18 19:46 Resuscitation Status Routine Resuscitation Status: DNAR: NO Resuscitation Discussed with: confirmed with the son DIMITRIS Reviewed: Yes Vital Signs & Weight: Vital Signs (12 hours) Temp Pulse Resp BP Pulse Ox 06/24/18 08:00 95 06/24/18 07:11 97.2 F L 82 20 100/60 95 06/24/18 04:00 97.7 F 80 20 109/70 95 06/24/18 00:00 97.4 F L 84 18 118/86 93 L Weight Weight 219 lb 15.988 oz I&O: 06/23/18 06/24/18 06/25/18 06:59 06:59 06:59 Intake Total 1620 1160 Output Total 2150 2350 200 Balance -530 -1190 -200 Result Diagrams: 06/23/18 04:41 06/20/18 05:02 Phys Exam - Physical Examination HEENT: PERRLA Respiratory: no wheezing, no rales, no rhonchi, clear to auscultation bilateral Cardiovascular: RRR, no significant murmur, no rub Gastrointestinal: soft, non-tender, no distention, positive bowel sounds Musculoskeletal: pulses present, edema present 1+ edema in both lower extremities, and chronic venous stasis changes Neurological: non-focal Dx/Plan (1) GI bleed Code(s): K92.2 - GASTROINTESTINAL HEMORRHAGE, UNSPECIFIED Status: Acute (2) Chronic systolic heart failure Code(s): I50.22 - CHRONIC SYSTOLIC (CONGESTIVE) HEART FAILURE Status: Chronic (3) AVRIL (acute kidney injury) Code(s): N17.9 - ACUTE KIDNEY FAILURE, UNSPECIFIED Status: Acute Comment: Avoid nephrotoxic meds and limit contrast exposure, serial creatinine, stable (4) Atrial fibrillation Code(s): I48.91 - UNSPECIFIED ATRIAL FIBRILLATION Status: Chronic Comment: Currently paced, continue Coumadin, Metoprolol (5) Chronic anticoagulation Code(s): 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 Continue Protonix BID * AFIB- his heart rate is stable * Chronic anticoagulation- INR is 3.0 today * Chronic systolic heart failure- compensated * Deconditioning- continue PT/OT and awaiting Rehab bad
--- NOTE | 2018-06-24 11:13 | PQF ---
YESY WHITEHEAD TONI MD [id number] CARLEY BECERRA [id number] CLINICAL DOCUMENTATION IMPROVEMENT CLARIFICATION FORM: ICD-10 Updated PLEASE DO AN ADDENDUM TO THE PROGRESS NOTE WITH ANY DOCUMENTATION UPDATES OR ADDITIONS AND CARRY THROUGH TO DC SUMMARY. THANK YOU. DATE: 06/23/2018 ATTN: DR. YAN Please exercise your independent, professional judgment in responding to the clarification form. Clinical indicators are provided on the bottom of this form for your review Please check appropriate box(s): [X ] Encephalopathy: Type: [ X] Acute [ ] Subacute [ ] Chronic Etiology: [X ] Metabolic [ ] Septic [ ] Toxic [ ] Other (please specify) [ ] Transient Alteration of Awareness [ ] Other diagnosis [ ] Unable to determine In addition, please specify: Present on Admission (POA): [ X ] Yes [ ] No [ ] Unable to determine For continuity of documentation, please document condition throughout progress notes and discharge summary. Thank You. CLINICAL INDICATORS - SIGNS / SYMPTOMS / LABS 06/18-ER: VOMITING SINCE 89 AND HAS MENTAL STATUS CHANGES AND PER FAMILY PT IS NORMALLY A&Ox4. 06/18-H&P-EZ: HERE FOR MENTAL STATUS CHANGE. NEURO REVEALED THE PT IS SOMNOLENT, BUT AROUSABLE. 06/19-EZ: ACUTE ENCEPHALOPATHY. SEEMS MUCH MORE AWAKE TODAY. 06/20-CHM: ACUTE CHF. ACUTE ENCEPHALOPATHY. FEVER OF UNCLEAR ETIOLOGY. 06/21-CHM: ACUTE ENCEPHALOPATHY. RISK FACTORS Vomiting Fever Probable GI Bleed Advanced Age TREATMENTS Neuro checks / neurology consult Cause is corrected encephalopathy resolves IV antibiotics IV fluids (This form is maintained as a part of the permanent medical record) 2014 [employer]. All Rights Reserved Sidra Salter RN, CDIS [email or web address] [phone] VIVIAN
--- NOTE | 2018-06-24 11:50 | PDOC.CTH ---
Cardiology Progress Note - Subjective The pt seen and examined. No overnight events. No cardiac complaints. The pt denied any ABD pain or bloating. - Objective Vital Signs Temp Pulse Resp BP Pulse Ox 06/24/18 08:00 95 06/24/18 07:11 97.2 F L 82 20 100/60 95 06/24/18 04:00 97.7 F 80 20 109/70 95 06/24/18 00:00 97.4 F L 84 18 118/86 93 L Weight 219 lb 15.988 oz 06/23/18 06/24/18 06/25/18 06:59 06:59 06:59 Intake Total 1620 1160 Output Total 2150 2350 200 Balance -530 -1190 -200 - Physical Examination General/Neuro: alert & oriented x3 Neck: no JVD present Lungs: other: (diminished at bases) Heart: other: (irregular) Abdomen: soft Extremities: other: (2-3+ pitting BLE edema) - Telemetry Telemetry Rhythm: BiV paced; - Labs Result Diagrams: 06/23/18 04:41 06/20/18 05:02 Troponin/CKMB CK-MB (CK-2) 1.3 ng/mL (0-6.6) 06/18/18 19:10 Troponin I 0.037 ng/mL (< 0.028) H 06/18/18 19:10 - Assessment/Plan 1. Chronic afib with Chronic anticoagulation with warfarin - Well controlled HR ; On Coumadin since no bleeding from GI with stable H&H. Coumadin dose will be managed by pharmacy, but may reconsider full OAC 2/2 possible Liver cirrhosis per U/S. 2. Chronic systolic HF - stable; on BBlocker and Lasix, but no ITALO/ARB 2/2 hx of CKD 3. Possible GI bleed - not active. Hgb stable. 4. Liver Cirrhosis per US - possible GI consult? 5. CKD - no changed 6. HTN - stable 7. BiV AICD placement MAR reviewed * From Cardiac standpoint, the pt is stable to tx to rehab. The pt will f/u with Dr Parker' office within 10 days after he is discharged from Rehab. Review of Systems - Review of Systems Constitutional: reports: weakness EENTM: reports: no symptoms reported Respiratory: reports: no symptoms reported Cardiac (ROS): reports: no symptoms reported ABD/GI: reports: no symptoms reported : reports: no symptoms reported
[2018-06-24] MEDS: Warfarin Sodium 3 MG TAB PO SCH (16:50)
[2018-06-25 04:59] LABS: Prothrombin Time 31.2 SEC (12.0-14.7)
[2018-06-25 05:00] LABS: Hemoglobin 12.2 g/dL (14.0-18.0); Platelet Count 112 thou/uL (130-400)
[2018-06-25 05:20] LABS: Anion Gap 16 mmol/L (10-20); BUN (Urea Nitrogen) 33 mg/dL (8.4-25.7); Calc. Creatinine Clearance 51 mL/min (70-130); Calcium 9.3 mg/dL (7.8-10.44); Carbon Dioxide 29 mmol/L (23-31); Chloride 97 mmol/L (98-107); Estimated GFR-MDRD 46; Glucose 105 mg/dL (83-110); Potassium 4.1 mmol/L (3.5-5.1); Sodium 138 mmol/L (136-145)
[2018-06-25] MEDS: Finasteride 5 MG TAB PO SCH (07:42)
[2018-06-25] MEDS: Metolazone 5 MG TAB PO SCH (07:42)
[2018-06-25] MEDS: Furosemide 40 MG TAB PO SCH (07:42)
[2018-06-25 08:03] VITALS: TEMP 98
--- NOTE | 2018-06-25 09:19 | PDOC.PN ---
- Subjective Encounter Start Date: 06/25/18 Encounter Start Time: 09:17 Mr. Jung was seen today in follow-up of Possible GI bleed. He does not have any complaints today. He is anxious to go to Rehab. - Objective Resuscitation Status - Order Detail: 06/18/18 19:46 Resuscitation Status Routine Resuscitation Status: DNAR: NO Resuscitation Discussed with: confirmed with the son DIMITRIS Reviewed: Yes Vital Signs & Weight: Vital Signs (12 hours) Temp Pulse Ox 06/25/18 08:00 98 F 06/25/18 07:08 95 Weight Weight 219 lb 15.988 oz Most Recent Monitor Data Heart Rate from ECG 77 NIBP 121/60 NIBP BP-Mean 80 Respiration from ECG 25 SpO2 91 I&O: 06/24/18 06/25/18 06/26/18 06:59 06:59 06:59 Intake Total 1160 790 Output Total 2350 2475 Balance -1190 -1685 Result Diagrams: 06/25/18 04:34 06/25/18 04:34 Phys Exam - Physical Examination HEENT: PERRLA Respiratory: no wheezing, no rales, no rhonchi, clear to auscultation bilateral Cardiovascular: RRR, no significant murmur, no rub Gastrointestinal: soft, non-tender, no distention, positive bowel sounds Musculoskeletal: pulses present, edema present + chronic venous stasis changes Neurological: non-focal Dx/Plan (1) GI bleed Code(s): K92.2 - GASTROINTESTINAL HEMORRHAGE, UNSPECIFIED Status: Acute (2) Chronic systolic heart failure Code(s): I50.22 - CHRONIC SYSTOLIC (CONGESTIVE) HEART FAILURE Status: Chronic (3) AVRIL (acute kidney injury) Code(s): N17.9 - ACUTE KIDNEY FAILURE, UNSPECIFIED Status: Acute Comment: Avoid nephrotoxic meds and limit contrast exposure, serial creatinine, stable (4) Atrial fibrillation Code(s): I48.91 - UNSPECIFIED ATRIAL FIBRILLATION Status: Chronic Comment: Currently paced, continue Coumadin, Metoprolol (5) Chronic anticoagulation 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 etiology- his H&H has been stable- continue PPI * Chronic diastolic heart failure- compensated * AFIB- her heart rate has been stable. * Chronic Anticoagulation- continue coumadin- I spoke eith Dr Marsh yesterday regarding whether or not to continue anticoagulation in the face of probable cirrhosis. He recommended to continue the coumadin, as his H&H has been stable. The "GI- Bleed" was not witnessed, and he never dropped his H&H. If in fact he has cirrhosis, it is compensated * Deconditioning- await transfer to Rehab.
[2018-06-25 12:16] VITALS: BP 102/73
[2018-06-25] MEDS: Warfarin Sodium 3 MG TAB PO SCH (16:15)
--- NOTE | 2018-06-26 02:04 | DIS ---
DATE OF ADMISSION: 06/18/2018 DATE OF DISCHARGE: 06/25/2018 DISCHARGE DISPOSITION: Home. PRIMARY DISCHARGE DIAGNOSES: 1. Possible gastrointestinal bleed. 2. Chronic atrial fibrillation, on chronic anticoagulation. 3. Chronic systolic heart failure. 4. Chronic kidney disease stage 3. 5. Hypertension. DISCHARGE MEDICATIONS: 1. Pantoprazole 40 mg twice a day. 2. Warfarin 3 mg daily. 3. Pravastatin 40 mg at bedtime. 4. Metoprolol 50 mg daily. 5. Zaroxolyn 5 mg as directed. 6. Furosemide 60 mg daily. 7. Finasteride 4 mg daily. CODE STATUS: DNAR. ALLERGIES: ELIQUIS AND BEE VENOM. HOSPITAL COURSE: Mr. Jung is a very pleasant 87-year-old gentleman, who was brought to the hospital after he had an episode of nausea and vomiting and there was concern that he may have had a GI bleed as well. He was admitted to the hospital and he was evaluated by GI. It was unclear whether or not there was an actual GI bleed. This was not witnessed by the family and the patient was a bit confused at presentation and could not remember what had happened on that day. He never dropped his H and H and he had had a recent endoscopy, which was negative. Our blender laborer felt that conservative management was in order. He was placed on proton pump inhibitor twice daily and his H and H were monitored. He remained clinically stable during the hospital stay. He was noted to be fairly weak and deconditioned and as a result, he was evaluated for inpatient rehab and he was approved and eventually transferred to the inpatient rehab on 06/25/2018. Job ID: [id number]
== END 2018-06-25 18:50 | DRG 377 ==
LOC: ERS 12:08 → ERHOLD 15:49 → IMCU/EMU 18:49
PROVIDERS: ADMIT Internal Medicine Nephrology; ATTEND Internal Medicine Nephrology
DX: K92.2 Gastrointestinal hemorrhage, unspecified (principal); G93.41 Metabolic encephalopathy; I13.0 Hypertensive heart and chronic kidney disease with heart failure and stage 1 through stage 4 chronic kidney disease, or unspecified chronic kidney disease; I50.22 Chronic systolic (congestive) heart failure; N17.9 Acute kidney failure, unspecified; I42.9 Cardiomyopathy, unspecified; N18.3 Chronic kidney disease, stage 3 (moderate); J44.9 Chronic obstructive pulmonary disease, unspecified; Z66 Do not resuscitate; E80.6 Other disorders of bilirubin metabolism; I48.2 Chronic atrial fibrillation; K74.60 Unspecified cirrhosis of liver; I73.9 Peripheral vascular disease, unspecified; Z79.01 Long term (current) use of anticoagulants; Z95.810 Presence of automatic (implantable) cardiac defibrillator
CPT/HCPCS: 36415; 51701; 70450; 71045; 76705; 80048; 80053; 81001; 81003; 81015; 82550; 82553; 83605; 84443; 84484; 85014; 85018; 85025; 85049; 85610; 85730; 86850; 86900; 86901; 87040; 87086; 93005; 96361; 96365; 96367; 96375; C9113; J0696; J1650; J1940; J3370; J7050

== ENCOUNTER 2018-07-30 15:24 | Inpatient (IN) | payer MEDICARE ==
[2018-07-30 16:49] LABS: #Eosinphils 0.1 thou/uL (0.0-0.7); #Lymphocytes 1.5 thou/uL (1.20-3.40); #Monocytes 0.9 thou/uL (0.11-0.59); #Neutrophils 3.9 thou/uL (1.40-6.50); %Basophils 0.7 % (0.0-1.0); %Eosinophils 0.8 % (0.0-10.0); %Monocytes 13.3 % (0.0-10.0); %Neutrophils 61.2 % (42.0-75.0); Hemoglobin 11.8 g/dL (14.0-18.0); Mean Corpuscular HGB CONC 32.7 g/dL (32.0-36.0); Mean Corpuscular Hemoglobin 34.9 pg (27.0-31.0); Platelet Count 128 thou/uL (130-400); Red Blood Cell (RBC) Count 3.37 mill/uL (4.70-6.10); White Blood Cell (WBC) Count 6.4 thou/uL (4.8-10.8)
[2018-07-30 17:06] LABS: ALT (SGPT) 12 U/L (8-55); AST (SGOT) 27 U/L (5-34); Albumin 3.2 g/dL (3.4-4.8); Alkaline Phosphatase 124 U/L (40-150); Anion Gap 13 mmol/L (10-20); BUN (Urea Nitrogen) 45 mg/dL (8.4-25.7); Bilirubin, Total 2.7 mg/dL (0.2-1.2); Calc. Creatinine Clearance 0 mL/min (70-130); Calcium 9.5 mg/dL (7.8-10.44); Carbon Dioxide 31 mmol/L (23-31); Chloride 96 mmol/L (98-107); Estimated GFR-MDRD 28; Glucose 108 mg/dL (83-110); Potassium 3.7 mmol/L (3.5-5.1); Protein, Total 6.2 g/dL (5.8-8.1); Sodium 136 mmol/L (136-145)
--- NOTE | 2018-07-30 17:37 | RAD ---
RADIOGRAPH CHEST 1 VIEW: Date: 07/30/18 Time: 4:55 p.m. HISTORY: 88-year-old male with chest pain. COMPARISON: 06/21/18 FINDINGS: Severe cardiomegaly again noted. Pulmonary venous engorgement appears worse on the current study. Lar ge, dense opacifications of the bilateral lower lung zones, with complete silhouetting of the bilater al hemidiaphragms. The retrocardiac portion of the left lower lobe is especially densely opacified. T hese are new findings since the previous study. Again noted is the left subclavian AICD. No pneumotho rax. IMPRESSION: 1. Congestive heart failure. 2. Bilateral pleural effusions. 3. Large air space opacities at the bilateral lung bases, left worse than right. This is presuma paty atelectasis, although pneumonia cannot be excluded. JN [] POS: [facility]
[2018-07-30 18:04] LABS: Bilirubin Negative (Negative); Blood, Urine Negative (Negative); Clarity CLEAR (Clear); Glucose, Urine (Dipstick) Negative (Negative); Leukocyte Negative (Negative); Nitrite Negative (Negative); Protein, Urine (Dipstick) Negative (Neg-Trace); pH, Urine 5.5 (5.0-9.0)
[2018-07-30] MEDS ORDERED: cefTRIAXone\\ROCEPHIN 1 GM VIAL ONE (18:25)
[2018-07-30] MEDS ORDERED: Furosemide 20 MG/2 ML VIAL ONE (18:25)
--- NOTE | 2018-07-30 19:09 | ULT ---
TESTICULAR ULTRASOUND WITH DOPPLER 07/30/18 HISTORY: Scrotal swelling. COMPARISON: None. TECHNIQUE: Thompson scale, color flow, doppler imaging with spectral waveform analysis performed of the testicles. FINDINGS: RIGHT HEMISCROTUM: Right testicle has a homogeneous echotexture. No intratesticular masses. Right testicle measures 2.8 x 4.2 x 3.0 cm. Right epididymis has a normal echotexture measuring 2.0 x 1.2 cm. There is a small am ount of fluid in the right hemiscrotum. The right scrotal wall is thickened. LEFT HEMISCROTUM: Left testicle has a homogeneous echotexture. No intratesticular masses. Left testicle measures 2.9 x 3.8 x 2.8 cm. Left epididymis has a normal echotexture measuring 1.7 x 0.9 cm. There is a small amoun t of fluid in the left hemiscrotum. Scrotal wall is thickened. TESTICULAR DOPPLER: There is vascular flow to both testicles. IMPRESSION: 1. Small bilateral hydroceles. 2. Scrotal wall thickening. POS: [facility]
[2018-07-30] MEDS ORDERED: Acetaminophen 325 MG TAB PO PRN (22:07)
[2018-07-30] MEDS ORDERED: Furosemide 20 MG/2 ML VIAL SLOW IVP SCH (22:15)
[2018-07-30 22:28] VITALS: BMI 30.1
[2018-07-30 23:26] LABS: PTT 36.4 SEC (22.9-36.1)
[2018-07-30 23:27] LABS: INR-International Normal Ratio 1.5; Prothrombin Time 17.8 SEC (12.0-14.7)
[2018-07-31 03:32] LABS: #Basophils 0.1 thou/uL (0.0-0.2); #Eosinphils 0.1 thou/uL (0.0-0.7); #Lymphocytes 1.5 thou/uL (1.20-3.40); #Monocytes 0.7 thou/uL (0.11-0.59); #Neutrophils 3.2 thou/uL (1.40-6.50); %Basophils 1.1 % (0.0-1.0); %Eosinophils 1.2 % (0.0-10.0); %Lymphocytes 26.5 % (21.0-51.0); %Monocytes 13.5 % (0.0-10.0); %Neutrophils 57.7 % (42.0-75.0); Hemoglobin 11.9 g/dL (14.0-18.0); Mean Corpuscular HGB CONC 33.3 g/dL (32.0-36.0); Mean Corpuscular Hemoglobin 35.3 pg (27.0-31.0); Mean Platelet Volume 7.8 fL (7.4-10.4); Platelet Count 122 thou/uL (130-400); Red Blood Cell (RBC) Count 3.36 mill/uL (4.70-6.10); White Blood Cell (WBC) Count 5.5 thou/uL (4.8-10.8)
[2018-07-31 03:53] LABS: ALT (SGPT) 11 U/L (8-55); AST (SGOT) 26 U/L (5-34); Albumin 3.1 g/dL (3.4-4.8); Alkaline Phosphatase 117 U/L (40-150); Anion Gap 15 mmol/L (10-20); BUN (Urea Nitrogen) 44 mg/dL (8.4-25.7); Bilirubin, Total 2.9 mg/dL (0.2-1.2); Calc. Creatinine Clearance 36 mL/min (70-130); Calcium 9.4 mg/dL (7.8-10.44); Carbon Dioxide 29 mmol/L (23-31); Chloride 97 mmol/L (98-107); Estimated GFR-MDRD 33; Glucose 91 mg/dL (83-110); Potassium 3.5 mmol/L (3.5-5.1); Protein, Total 6.1 g/dL (5.8-8.1); Sodium 137 mmol/L (136-145)
--- NOTE | 2018-07-31 03:57 | HP ---
PRIMARY CARE PHYSICIAN: Dr. Loyda Read. CHIEF COMPLAINT: Testicular pain. HISTORY OF PRESENT ILLNESS: Mr. Jung is an 88-year-old male, who presented to the emergency room from a retirement for increased testicular swelling. The patient reports itchy scrotum. Reports bilateral lower extremity swelling. Denied any confusion or dysuria. No flank pain. The patient denied any history of [place] or CHF. The patient underwent a testicular Doppler, which showed vascular flow to both testicles and scrotal wall with thickened small bilateral hydrocele. The patient also had a chest x-ray which showed congestive heart failure, bilateral pleural effusions, large airspace opacities at the bilateral lung bases, left worse than right. Presumably atelectasis although pneumonia could not be excluded. The patient's BNP in the emergency room was 1114.4. Troponin undetectable. Creatinine 2.21. The patient reports that his testicles and lower leg edema has been ongoing for the last 2 weeks and was worse today, prompting the retirement to send him for evaluation. Based on presentation and lab values, the patient was admitted to the observation unit for further management. PAST MEDICAL HISTORY: Low back pain, peripheral vascular disease, rectal bleed in 2018, atrial fibrillation, hypertension, CHF, COPD, cirrhosis of the liver, pleural effusion, chronic atrial fibrillation, stage 3 kidney disease, recurrent UTIs. PAST SURGICAL HISTORY: Includes pacemaker, hernia, cochlear implant. PSYCHIATRIC HISTORY: None. SOCIAL HISTORY: Lives at a retirement. Denies alcohol, drug or smoking history. REVIEW OF SYSTEMS: CONSTITUTIONAL: Denies chills or fever. EYES: Denies any eye vision changes, eye discharge, or eye pain. ENT: Denies rhinorrhea or sore throat. CARDIOVASCULAR: Denies chest pain or palpitations. RESPIRATORY: Denies cough or shortness of breath. GI: Denies abdominal pain, nausea, vomiting, diarrhea, or constipation. : Reports scrotal swelling. Denies dysuria or hematuria. MUSCULOSKELETAL: Denies back pain, injury, or neck pain. NEUROLOGIC: Denies headache. Denies dizziness. HEMO: Denies abnormal blood clotting. PHYSICAL EXAMINATION: VITAL SIGNS: Blood pressure 99/64, pulse is 84, respirations 16, and 98% on room air. CONSTITUTIONAL: The patient appears nontoxic, is alert and oriented to person, place, and time. He is hard of hearing. HEENT: Head is atraumatic and normocephalic. Eyes, pupils equal, round, and reactive to light. ENT: Mouth exam is normal. Mucous membranes are moist. NECK: Normal range of motion. Trachea is midline. RESPIRATORY: Breath sounds are clear. No respiratory distress. CARDIOVASCULAR: Heart rate is regular rate and rhythm. Heart sounds are normal. ABDOMEN: Nontender. Bowel sounds are heard. : Diffuse scrotal edema with erythema. No tenderness. Bilateral medial thighs normal. No crepitus. Rhett's gangrene under scrotum. BACK: Normal inspection. Normal range of motion. EXTREMITIES: Upper extremity, normal range of motion. Motor strength is normal. Sensation intact. Radial pulses equal. Lower extremity, normal range of motion. Motor strength is normal. Pedal pulses are normal. There is pitting edema bilaterally. NEUROLOGIC: Oriented to person, place, and time. Speech is normal. PSYCH: Normal affect. PERTINENT LABS: Urine is clear. TSH is 3.36. BNP 1114. Troponin undetectable. Magnesium 1.3. Sodium 136, potassium 3.7, gap is 13, BUN is 45, creatinine is 2.21, GFR is 28, bilirubin 2.7, albumin 3.2. Other liver enzymes are unremarkable. White blood cell count is 6.4, hemoglobin 11.8, and hematocrit 35.9. PLAN AND ASSESSMENT: 1. Anasarca most likely due to congestive heart failure, acute exacerbation, and also kidney dysfunction. We will consult Cardiology and Nephrology. We will get patient order some Lasix. We will recheck lab values in the morning. 2. Scrotal cellulitis. Rocephin 1 g was given in the emergency room. We will continue that on a daily basis. Blood cultures are pending. 3. Hypertension. We will trend, add back home medication as needed. 4. Hyperlipidemia. We will continue home medication. 5. We will check PT, PTT, INR. The patient is on Coumadin. 6. Deep venous thrombosis and gastrointestinal prophylaxis will be started. 7. Case discussed with Dr. Freire. 8. Hospital course will depend on clinical findings. Job ID: [id number]
[2018-07-31] MEDS ORDERED: Aspirin 325 MG TAB ONE (08:58)
[2018-07-31] MEDS ORDERED: Furosemide 40 MG/4 ML VIAL SLOW IVP SCH ×2 (09:00→14:00)
[2018-07-31] MEDS: Famotidine 20 MG TAB PO SCH ×2 (10:02→20:31)
--- NOTE | 2018-07-31 13:12 | CON ---
DATE OF CONSULTATION: CONSULTING PHYSICIAN: Kaden Abraham MD. REQUESTING PHYSICIAN: Hospitalist Program with [facility]. REASON FOR CONSULTATION: Acute on chronic kidney disease. IMPRESSION: 1. Acute on chronic kidney disease. This is likely cytokine-mediated in the context of infection compounded by possible cardiorenal syndrome. 2. Chronic kidney disease, likely baseline stage 3/4. 3. Hypovolemia. 4. Congestive heart failure, likely decompensated. PLAN: 1. Monitor the renal function closely and renally dose all medications while avoiding potentially nephrotoxic agents. 2. The patient is to benefit from diuresis. 3. I will not be surprised if the creatinine rises status post diuresis as the true level of creatinine will be reviewed after the patient becomes euvolemic. It is possible for the creatinine to improve once the cardiac output is improved status post diuresis with in fact a non-improve renal perfusion. 4. Further management to be dependent on the clinical course. HISTORY OF PRESENT ILLNESS: History is that of 88-year-old gentleman who was sent in from care home with complaint of scrotal pain and swelling. The patient on presentation was noted with elevated creatinine of up to 2.21 and also noted to have some subjective feeling of shortness of breath with clinical evidence of hypovolemia. As a result of these findings, decision has been taken to involve Renal in the management of this case. The patient on presentation was noted with elevated BNP at 1114. PAST MEDICAL HISTORY: Significant for peripheral vascular disease, rectal bleeding, atrial fibrillation, hypertension, CHF, COPD, cirrhosis, pleural effusion, chronic atrial fibrillation, stage 3 chronic kidney disease, recurrent urinary tract infection. MEDICATIONS: Reviewed and as documented on [employer]. SOCIAL HISTORY: Denies alcohol, tobacco, or illicit drug use. Lives at a care home. REVIEW OF SYSTEMS: As documented in the body of the history. All the other systems were reviewed and found not to be significantly related to present illness. PHYSICAL EXAMINATION: GENERAL: The patient was found to be alert with short of breath. VITAL SIGNS: Noted with the following vital signs; afebrile, temperature 97.7, pulse 76, respiratory rate of 15, O2 saturation are 93% to 94% on room air with blood pressure 102/59 to 110/58. HEENT: Unremarkable. CARDIOVASCULAR SYSTEM: First and second heart sounds were heard. RESPIRATORY SYSTEM: Revealed some diminished breath sounds at bases. DIGESTIVE SYSTEM: Revealed a benign abdomen. Positive bowel sounds. EXTREMITIES: Showed some peripheral edema. NEUROLOGIC: Alert and oriented. No lateralizing signs. LYMPHATICS: No peripheral lymphadenopathy. SUMMARY: An 88-year-old gentleman who presented here with scrotal swelling and pain. Noted with evidence of cardiac decompensation and acute on chronic kidney disease. Thank you for this consultation. We will follow with you. Job ID: [id number]
--- NOTE | 2018-07-31 14:00 | PDOC.PN ---
- Subjective Encounter Start Date: 07/31/18 Encounter Start Time: 11:00 Subjective: sob+, not fully oriented -: follows verbal stimuli - Objective MAR Reviewed: Yes Vital Signs & Weight: Vital Signs (12 hours) Temp Pulse Resp BP Pulse Ox 07/31/18 10:50 98.4 F 75 14 107/57 L 95 07/31/18 04:41 97.7 F 76 15 110/58 L 96 Weight Weight 210 lb 1.608 oz I&O: 07/30/18 07/31/18 08/01/18 06:59 06:59 06:59 Intake Total 240 Output Total 350 Balance -110 Result Diagrams: 07/31/18 03:07/31/18 03:19 Phys Exam - Physical Examination HEENT: PERRLA, moist MMs Neck: no JVD, supple Respiratory: no wheezing rales+ Cardiovascular: RRR, no significant murmur Gastrointestinal: soft, non-tender, positive bowel sounds Musculoskeletal: pulses present, edema present Neurological: non-focal, moves all 4 limbs Dx/Plan (1) Acute CHF (congestive heart failure) Code(s): I50.9 - HEART FAILURE, UNSPECIFIED Status: Acute Comment: EF 25-30 % (2) AVRIL (acute kidney injury) Code(s): N17.9 - ACUTE KIDNEY FAILURE, UNSPECIFIED Status: Acute (3) Encephalopathy Code(s): G93.40 - ENCEPHALOPATHY, UNSPECIFIED Status: Acute (4) Atrial fibrillation Code(s): I48.91 - UNSPECIFIED ATRIAL FIBRILLATION Status: Chronic Comment: Currently paced, continue Coumadin, Metoprolol (5) Chronic anticoagulation Code(s): Z79.01 - DIVISION HEAD (CURRENT) USE OF ANTICOAGULANTS Status: Chronic Comment: Daily PT/INR, continue Coumadin, will have pharmacy monitor in house - Plan switch to home dose lasix, is sensitive to avril -: advance age, mild encephalopathy -: early ambulation as tolerated, toprol xl, protonix -: on ceftriaxone for suspected scrotal cellulitis, likely maceration with quynh -: home dose coumadin (this needs to be confirmed with family) * . Review of Systems - Medications/Allergies Allergies/Adverse Reactions: Allergies Allergy/AdvReac Type Severity Reaction Status Date / Time apixaban [From Eliquis] Allergy Verified 07/30/18 22:20 bee venom protein (honey bee) Allergy Verified 06/14/18 08:18 Medications: Current Medications Acetaminophen (Tylenol) 650 mg PO Q4H PRN PRN Reason: Headache/Fever/Mild Pain (1-3) Famotidine (Pepcid) 20 mg PO BID [facility] Last Admin: 07/31/18 10:02 Dose: 20 mg Furosemide (Lasix) 40 mg SLOW IVP 0600,1400 [facility] Ceftriaxone Sodium 1 gm/ (Sodium Chloride) 100 mls @ 200 mls/hr IVPB Q24HR [facility] Sodium Chloride (Flush - Normal Saline) 10 ml IVF PRN PRN PRN Reason: Saline Flush
[2018-07-31] MEDS: Warfarin Sodium 3 MG TAB PO SCH (17:10)
[2018-07-31] MEDS ORDERED: cefTRIAXone\\ROCEPHIN 1 GM in Sodium Chloride 0.9% 100 ML IVPB SCH (18:00)
[2018-07-31] MEDS: Pravastatin Sodium 40 MG TAB PO SCH (20:31)
[2018-08-01 06:41] LABS: #Basophils 0.1 thou/uL (0.0-0.2); #Eosinphils 0.1 thou/uL (0.0-0.7); #Lymphocytes 1.5 thou/uL (1.20-3.40); #Monocytes 0.9 thou/uL (0.11-0.59); #Neutrophils 3.9 thou/uL (1.40-6.50); %Basophils 0.9 % (0.0-1.0); %Eosinophils 1.2 % (0.0-10.0); %Lymphocytes 23.5 % (21.0-51.0); %Monocytes 13.3 % (0.0-10.0); %Neutrophils 61.1 % (42.0-75.0); Hemoglobin 11.8 g/dL (14.0-18.0); Mean Corpuscular HGB CONC 31.8 g/dL (32.0-36.0); Mean Corpuscular Hemoglobin 33.6 pg (27.0-31.0); Platelet Count 116 thou/uL (130-400); RBC Distribution Width 13.7 % (11.5-14.5); Red Blood Cell (RBC) Count 3.51 mill/uL (4.70-6.10); White Blood Cell (WBC) Count 6.5 thou/uL (4.8-10.8)
[2018-08-01 07:00] LABS: ALT (SGPT) 12 U/L (8-55); AST (SGOT) 25 U/L (5-34); Alkaline Phosphatase 120 U/L (40-150); Anion Gap 12 mmol/L (10-20); BUN (Urea Nitrogen) 42 mg/dL (8.4-25.7); Bilirubin, Total 2.5 mg/dL (0.2-1.2); Calc. Creatinine Clearance 38 mL/min (70-130); Calcium 9.3 mg/dL (7.8-10.44); Carbon Dioxide 31 mmol/L (23-31); Chloride 96 mmol/L (98-107); Estimated GFR-MDRD 35; Globulin 2.8 g/dL (2.4-3.5); Glucose 93 mg/dL (83-110); Potassium 3.5 mmol/L (3.5-5.1); Protein, Total 5.8 g/dL (5.8-8.1); Sodium 135 mmol/L (136-145)
[2018-08-01] MEDS: Famotidine 20 MG TAB PO SCH ×2 (08:30→20:32)
[2018-08-01] MEDS: Aspirin 81 mg Enteric Coated Tablet PO SCH (08:30)
[2018-08-01] MEDS: Finasteride 5 MG TAB PO SCH (08:30)
[2018-08-01] MEDS ORDERED: Furosemide 40 MG TAB PO SCH (09:00)
[2018-08-01] MEDS ORDERED: Metolazone 5 MG TAB PO SCH (10:30)
--- NOTE | 2018-08-01 12:10 | PDOC.PN ---
- Subjective Encounter Start Date: 08/01/18 Encounter Start Time: 07:00 Subjective: still has swelling of his scrotum and legs -: breathing better but gets sob easily - Objective MAR Reviewed: Yes Vital Signs & Weight: Vital Signs (12 hours) Temp Pulse Resp BP BP Pulse Ox 08/01/18 07:22 98.3 F 76 18 122/59 L 95 08/01/18 03:58 98.4 F 77 14 100/58 L 96 Weight Weight 210 lb 1.608 oz I&O: 07/31/18 08/01/18 08/02/18 06:59 06:59 07:59 Intake Total 240 820 Output Total 350 Balance -110 820 Result Diagrams: 08/01/18 06:06 08/01/18 06:06 Phys Exam - Physical Examination HEENT: PERRLA, sclera anicteric Neck: no JVD, supple Respiratory: no wheezing rales+ Cardiovascular: RRR, no significant murmur Gastrointestinal: soft, non-tender, positive bowel sounds scrotal and abd wall edema+ Musculoskeletal: pulses present, edema present Neurological: non-focal, moves all 4 limbs Dx/Plan (1) Acute CHF (congestive heart failure) Code(s): I50.9 - HEART FAILURE, UNSPECIFIED Status: Acute Qualifiers: Heart failure type: combined systolic and diastolic Qualified Code(s): I50.41 - Acute combined systolic (congestive) and diastolic (congestive) heart failure Comment: EF 25-30% (2) AVRIL (acute kidney injury) Code(s): N17.9 - ACUTE KIDNEY FAILURE, UNSPECIFIED Status: Acute (3) Encephalopathy Code(s): G93.40 - ENCEPHALOPATHY, UNSPECIFIED Status: Resolved (4) Atrial fibrillation Code(s): I48.91 - UNSPECIFIED ATRIAL FIBRILLATION Status: Chronic Comment: Currently paced, continue Coumadin, Metoprolol (5) Chronic anticoagulation Code(s): Z79.01 - [facility] (CURRENT) USE OF ANTICOAGULANTS Status: Chronic Comment: Daily PT/INR, continue Coumadin, will have pharmacy monitor in house - Plan change status to inpatient, still has significant edema with exertional sob -: will be on iv lasix and metolazone, d/w -: continue toprol xl, asp, coumadin, pravachol -: to ambulate as tolerated with PT -: cardio consult pending * . Review of Systems - Medications/Allergies Allergies/Adverse Reactions: Allergies Allergy/AdvReac Type Severity Reaction Status Date / Time apixaban [From Eliquis] Allergy Verified 07/30/18 22:20 bee venom protein (honey bee) Allergy Verified 06/14/18 08:18 Medications: Current Medications Acetaminophen (Tylenol) 650 mg PO Q4H PRN PRN Reason: Headache/Fever/Mild Pain (1-3) Aspirin (Ecotrin) 81 mg PO DAILY [facility] Last Admin: 08/01/18 08:30 Dose: 81 mg Famotidine (Pepcid) 20 mg PO BID [facility] Last Admin: 08/01/18 08:30 Dose: 20 mg Finasteride (Proscar) 5 mg PO DAILY [facility] Last Admin: 08/01/18 08:30 Dose: 5 mg Furosemide (Lasix) 40 mg SLOW IVP 0600,1400 [facility] Ceftriaxone Sodium 1 gm/ (Sodium Chloride) 100 mls @ 200 mls/hr IVPB Q24HR [facility] Last Admin: 07/31/18 19:23 Dose: 100 mls Melatonin (Melatonin) 6 mg PO HS PRN PRN Reason: Insomnia Metolazone (Zaroxolyn) 5 mg PO ONE [facility] Metoprolol Succinate (Toprol Xl) 50 mg PO DAILY [facility] Last Admin: 08/01/18 08:30 Dose: 50 mg Pantoprazole Sodium (Protonix) 40 mg PO BID [facility] Last Admin: 08/01/18 08:30 Dose: 40 mg Pravastatin Sodium (Pravachol) 40 mg PO HS [facility] Last Admin: 07/31/18 20:31 Dose: 40 mg Sodium Chloride (Flush - Normal Saline) 10 ml IVF PRN PRN PRN Reason: Saline Flush Last Admin: 07/31/18 20:31 Dose: 10 ml Warfarin Sodium (Coumadin) 3 mg PO 1700 [facility] Last Admin: 07/31/18 17:10 Dose: 3 mg
[2018-08-01] MEDS: Furosemide 40 MG/4 ML VIAL SLOW IVP SCH (13:20)
[2018-08-01] MEDS: Warfarin Sodium 3 MG TAB PO SCH (16:50)
[2018-08-01] MEDS: Pravastatin Sodium 40 MG TAB PO SCH (20:32)
--- NOTE | 2018-08-01 21:37 | PRG ---
DATE OF SERVICE: 08/01/2018 SUBJECTIVE: The patient was seen and examined with no new complaints. Hemodynamically stable. OBJECTIVE: HEENT: Unremarkable. Moist oral mucosa. NECK: Supple. No. No conjunctival injection or icterus. CARDIOVASCULAR SYSTEM: First and second heart sounds were heard. RESPIRATORY SYSTEM: Clear to auscultation with decreased breath sounds at bases. DIGESTIVE SYSTEM: Revealed benign abdomen. EXTREMITIES: Showed peripheral edema. LABORATORY INVESTIGATION: Showed a creatinine down to 1.8. IMPRESSION: 1. Acute on chronic kidney disease. This is likely cardiorenal, seems to be improved status post diuresis. 2. Hypovolemia in the context of #3. 3. Congestive heart failure. PLAN: 1. We will continue with parenteral diuretics in order to circumvent the limiting effect of congestive gastroenteropathy on oral diuretics. 2. Low-salt diet. 3. Renally dose all medications for low GFR. 4. Further management to be dependent on the clinical course. Job ID: [id number]
[2018-08-02 06:13] LABS: INR-International Normal Ratio 1.5; Prothrombin Time 18.3 SEC (12.0-14.7)
[2018-08-02] MEDS: Furosemide 40 MG/4 ML VIAL SLOW IVP SCH ×2 (06:35→14:14)
[2018-08-02] MEDS: Aspirin 81 mg Enteric Coated Tablet PO SCH (09:30)
[2018-08-02] MEDS: Finasteride 5 MG TAB PO SCH (09:30)
[2018-08-02] MEDS: Famotidine 20 MG TAB PO SCH ×2 (09:30→21:04)
--- NOTE | 2018-08-02 14:05 | PDOC.PN ---
- Subjective Encounter Start Date: 08/02/18 Encounter Start Time: 10:15 Subjective: awake, no sob, feels better -: still has edema in lower abd and scrotal area -: has ambulated in hallway with PT - Objective Resuscitation Status - Order Detail: 08/02/18 12:43 Resuscitation Status Routine Resuscitation Status: DNAR: NO Resuscitation Discussed with: d/w patient and children MAR Reviewed: Yes Vital Signs & Weight: Vital Signs (12 hours) Temp Pulse Resp BP BP Pulse Ox 08/02/18 11:11 97.6 F 98 16 107/59 L 08/02/18 08:07 98.2 F 75 16 105/51 L 94 L 08/02/18 04:00 98.6 F 79 16 97/54 L 94 L Weight Weight 234 lb I&O: 08/01/18 08/02/18 08/03/18 05:59 06:59 06:59 Intake Total Output Total Balance Result Diagrams: 08/01/18 06:06 08/01/18 06:06 Phys Exam - Physical Examination HEENT: PERRLA dry mucosa Neck: no JVD, supple Respiratory: no wheezing rales+ Cardiovascular: RRR, no significant murmur Gastrointestinal: soft, non-tender, positive bowel sounds lower abd wall and scrotal edema, is receding Musculoskeletal: pulses present, edema present brittny hose+ Neurological: non-focal, moves all 4 limbs Dx/Plan (1) Acute CHF (congestive heart failure) Code(s): I50.9 - HEART FAILURE, UNSPECIFIED Status: Acute Qualifiers: Heart failure type: combined systolic and diastolic Qualified Code(s): I50.41 - Acute combined systolic (congestive) and diastolic (congestive) heart failure Comment: EF 25-30% (2) AVRIL (acute kidney injury) Code(s): N17.9 - ACUTE KIDNEY FAILURE, UNSPECIFIED Status: Acute (3) Encephalopathy Code(s): G93.40 - ENCEPHALOPATHY, UNSPECIFIED Status: Resolved (4) Atrial fibrillation Code(s): I48.91 - UNSPECIFIED ATRIAL FIBRILLATION Status: Chronic Comment: Currently paced, continue Coumadin, Metoprolol (5) Chronic anticoagulation Code(s): 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 Review of Systems - Medications/Allergies Allergies/Adverse Reactions: Allergies Allergy/AdvReac Type Severity Reaction Status Date / Time apixaban [From Eliquis] Allergy Verified 07/30/18 22:20 bee venom protein (honey bee) Allergy Verified 06/14/18 08:18 Medications: Current Medications Acetaminophen (Tylenol) 650 mg PO Q4H PRN PRN Reason: Headache/Fever/Mild Pain (1-3) Aspirin (Ecotrin) 81 mg PO DAILY [facility] Last Admin: 08/02/18 09:30 Dose: 81 mg Famotidine (Pepcid) 20 mg PO BID [facility] Last Admin: 08/02/18 09:30 Dose: 20 mg Finasteride (Proscar) 5 mg PO DAILY [facility] Last Admin: 08/02/18 09:30 Dose: 5 mg Furosemide (Lasix) 40 mg SLOW IVP 0600,1400 [facility] Last Admin: 08/02/18 06:35 Dose: 40 mg Melatonin (Melatonin) 6 mg PO HS PRN PRN Reason: Insomnia Metoprolol Succinate (Toprol Xl) 50 mg PO DAILY [facility] Last Admin: 08/02/18 09:30 Dose: 50 mg Pantoprazole Sodium (Protonix) 40 mg PO BID [facility] Last Admin: 08/02/18 09:30 Dose: 40 mg Pravastatin Sodium (Pravachol) 40 mg PO HS [facility] Last Admin: 08/01/18 20:32 Dose: 40 mg Sodium Chloride (Flush - Normal Saline) 10 ml IVF PRN PRN PRN Reason: Saline Flush Last Admin: 07/31/18 20:31 Dose: 10 ml Warfarin Sodium (Coumadin) 3 mg PO 1700 [facility] Last Admin: 08/01/18 16:50 Dose: 3 mg
--- NOTE | 2018-08-02 15:40 | CON ---
DATE OF CONSULTATION: REASON FOR CONSULTATION: Congestive heart failure. HISTORY OF PRESENT ILLNESS: Mr. Jung is an 88-year-old gentleman, who is a patient Dr. Burak Parker. He recently presented with fatigue, weakness, and lower extremity edema. He denies chest pain, pressure, or other associated symptoms. He has been told he needs dialysis, although his creatinine was 1.83. His BNP was more also markedly elevated at 1114. Mr. Jung does have a previous history of BiV AICD. His recent LVEF has been 25% to 30%. PAST MEDICAL HISTORY: CAD, biventricular ICD, chronic atrial fibrillation, COPD, and hypertension. SOCIAL HISTORY: He is currently , two children. ALLERGIES: ELIQUIS AND BEES. HOME MEDICATIONS: Include, 1. Metolazone. 2. Finasteride. 3. Metoprolol. 4. Pravastatin. 5. Coumadin. 6. Lasix. REVIEW OF SYSTEMS: A 10-point review of systems is reviewed and as above, otherwise negative. PHYSICAL EXAMINATION: GENERAL: Patient is a pleasant 88-year-old male who is in no acute distress. The patient appears their stated age. VITAL SIGNS: Blood pressure 107/59, pulse 98, and temperature 97.6. NEUROLOGIC: The patient is alert and oriented x3 with no focal neurologic deficits. HEENT: Sclerae without icterus. Mouth has moist mucous membranes with normal pallor. NECK: No JVD. Carotid upstroke brisk. No bruits bilaterally. LUNGS: Crackles noted bilaterally. BACK: No scoliosis or kyphosis. CARDIAC: Regular rate and rhythm with normal S1 and S2. No S3 or S4 noted. No significant rubs, murmurs, thrills, or gallops noted throughout the precordium. PMI is not displaced. There is no parasternal heave. ABDOMEN: Soft, nontender, nondistended. No peritoneal signs present. No hepatosplenomegaly. No abnormal striae. EXTREMITIES: 2 to 3+ pitting edema. SKIN: No gross abnormalities. PERTINENT LABORATORY DATA: Sodium 135, BUN 42, creatinine 1.83. BNP of 1114. Hemoglobin 11.8, hematocrit 37.1, platelet count 116. IMPRESSION: 1. Acute on chronic systolic heart failure. 2. Coronary artery disease. 3. Atrial fibrillation. RECOMMENDATIONS: At this point, I would recommend diuresis. His most recent LVEF suggests LVEF of 25% to 30%. Lasix 40 mg IV has been started. May consider using metolazone as well in addition to the Lasix. We will continue metoprolol in addition to aspirin. ITALO inhibitor therapy and ARB are contraindicated due to renal insufficiency. Also continue Coumadin. Further recommendations per Dr. Burak Parker in a.m. Job ID: [id number]
[2018-08-02] MEDS: Warfarin Sodium 3 MG TAB PO SCH (17:39)
[2018-08-02] MEDS: Pravastatin Sodium 40 MG TAB PO SCH (21:04)
--- NOTE | 2018-08-02 21:46 | PRG ---
DATE OF SERVICE: 08/02/2018 SUBJECTIVE: The patient is seen and examined. Noted with the following vital signs. OBJECTIVE: VITAL SIGNS: Afebrile, temperature 98.3, pulse 76, respiratory rate of 20, O2 saturations are 95% with blood pressure of 109/56 to 107/59. HEENT: Unremarkable. CARDIOVASCULAR: First and second heart sounds were heard. RESPIRATORY: Clear to auscultation. DIGESTIVE: Revealed a benign abdomen. EXTREMITIES: Show some peripheral edema. SKIN: No new gross rash. LYMPHATICS: No peripheral lymphadenopathy. LABORATORY INVESTIGATIONS: None today. IMPRESSION: 1. Acute on chronic kidney disease, likely in the context of cardiorenal syndrome as the patient is improving with diuresis. 2. Hypervolemia in the context of #3. 3. Congestive heart failure. PLAN: 1. We will continue with diuresis. 2. Renally dose all medications, avoiding potentially nephrotoxic agents. 3. Further management will be dependent on the clinical course. Job ID: [id number]
[2018-08-03] MEDS: Melatonin 3 MG TAB PO PRN (01:07)
[2018-08-03 05:33] LABS: INR-International Normal Ratio 1.7; Prothrombin Time 19.7 SEC (12.0-14.7)
[2018-08-03 05:51] LABS: Anion Gap 13 mmol/L (10-20); BUN (Urea Nitrogen) 38 mg/dL (8.4-25.7); Calc. Creatinine Clearance 39 mL/min (70-130); Calcium 9.2 mg/dL (7.8-10.44); Carbon Dioxide 31 mmol/L (23-31); Chloride 97 mmol/L (98-107); Estimated GFR-MDRD 33; Glucose 95 mg/dL (83-110); Potassium 3.2 mmol/L (3.5-5.1); Sodium 138 mmol/L (136-145)
[2018-08-03] MEDS: Furosemide 40 MG/4 ML VIAL SLOW IVP SCH ×2 (07:52→13:05)
[2018-08-03] MEDS: Polyethylene Glycol 3350 17 GM Packet PO SCH (07:53)
[2018-08-03] MEDS: Famotidine 20 MG TAB PO SCH ×2 (07:53→20:20)
[2018-08-03] MEDS: Finasteride 5 MG TAB PO SCH (07:53)
[2018-08-03] MEDS: Aspirin 81 mg Enteric Coated Tablet PO SCH (07:53)
[2018-08-03] MEDS: Senokot S 8.6-50 MG TAB PO SCH ×3 (07:54→20:25)
[2018-08-03] MEDS: Warfarin Sodium 3 MG TAB PO SCH (16:16)
[2018-08-03] MEDS: Potassium Chloride 20 MEQ TAB PO SCH (16:16)
--- NOTE | 2018-08-03 18:40 | PDOC.PN ---
- Subjective Encounter Start Date: 08/03/18 Encounter Start Time: 18:38 Subjective: feeling better, decreased swelling - Objective Resuscitation Status - Order Detail: 08/02/18 12:43 Resuscitation Status Routine Resuscitation Status: DNAR: NO Resuscitation Discussed with: d/w patient and children Vital Signs & Weight: Vital Signs (12 hours) Temp Pulse Resp BP BP Pulse Ox 08/03/18 15:34 98.2 F 71 16 119/56 L 94 L 08/03/18 11:57 98.1 F 74 16 110/58 L 94 L 08/03/18 07:40 97.9 F 70 18 93/55 L 95 Weight Weight 229 lb 6.4 oz I&O: 08/02/18 08/03/18 08/04/18 06:59 06:59 06:59 Intake Total 1080 800 Output Total 450 1550 Balance 630 -750 Result Diagrams: 08/01/18 06:06 08/03/18 04:50 Phys Exam - Physical Examination HEENT: PERRLA, moist MMs, sclera anicteric, TM's clear, oral pharynx no lesions , 2+ tonsils Neck: no nodes, no JVD, supple, full ROM Respiratory: no wheezing, no rales, no rhonchi Cardiovascular: RRR, no significant murmur, no rub Gastrointestinal: soft, non-tender, no distention, positive bowel sounds Musculoskeletal: edema present Neurological: non-focal, normal sensation, moves all 4 limbs Psychiatric: normal affect, A&O x 3 Skin: no rash, normal turgor, cap refill <2 seconds Dx/Plan (1) Acute CHF (congestive heart failure) Code(s): I50.9 - HEART FAILURE, UNSPECIFIED Status: Acute Qualifiers: Heart failure type: combined systolic and diastolic Qualified Code(s): I50.41 - Acute combined systolic (congestive) and diastolic (congestive) heart failure Comment: EF 25-30%, continued IV lasix, (2) Atrial fibrillation Code(s): I48.91 - UNSPECIFIED ATRIAL FIBRILLATION Status: Chronic Comment: Currently paced, continue Coumadin, Metoprolol (3) Chronic anticoagulation Code(s): 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
--- NOTE | 2018-08-03 19:04 | PRG ---
DATE OF SERVICE: 08/03/2018 SUBJECTIVE: The patient is seen and examined, seems to be doing much better. Noted with the following vital signs. OBJECTIVE: VITAL SIGNS: Afebrile, temperature 98.2, pulse 71, respiratory rate of 16, O2 saturation of 94% with blood pressure 119/56. HEENT: Unremarkable. CARDIOVASCULAR SYSTEM: First and second heart sounds were heard. RESPIRATORY SYSTEM: Clear to auscultation. DIGESTIVE SYSTEM: Revealed a benign abdomen. Positive bowel sounds. EXTREMITIES: Showed some peripheral edema. SKIN: No new gross rash. LABORATORY INVESTIGATION: Showed potassium of 3.2, creatinine of 1.92, BUN of 38. IMPRESSION: 1. Acute on chronic kidney disease, which seems to be improved with diuresis. 2. Cardiorenal syndrome. 3. Mild hypokalemia. PLAN: 1. Begin to de-escalate diuretics, therefore, we will change IV Lasix to oral. 2. Renally dose all medications and avoid potentially nephrotoxic agents. Condition of the patient at this time of dictation is good. Job ID: [id number]
[2018-08-03] MEDS: Pravastatin Sodium 40 MG TAB PO SCH (20:20)
--- NOTE | 2018-08-03 21:10 | PDOC.CTH ---
Cardiology Progress Note - Subjective The pt seen and examined. No overnight events. No cardiac complaints. He is intermittent confused. - Objective Vital Signs Temp Pulse Resp BP Pulse Ox 08/03/18 20:00 97.8 F 66 12 99/53 L 95 08/03/18 15:34 98.2 F 71 16 119/56 L 94 L 08/03/18 11:57 98.1 F 74 16 110/58 L 94 L Weight 229 lb 6.4 oz 08/02/18 08/03/18 08/04/18 06:59 06:59 06:59 Intake Total 1080 800 Output Total 450 1550 Balance 630 -750 - Physical Examination General/Neuro: other: (intermittent confusion) Lungs: other: (diminished at bases) Heart: other: (irregular; BiV paced) Abdomen: soft Extremities: other: (3+ pitting BLE edema; TEDs) - Telemetry Telemetry Rhythm: irregular; BiV paced - Labs Result Diagrams: 08/01/18 06:06 08/04/18 10:39 Troponin/CKMB Troponin I 0.011 ng/mL (< 0.028) 07/30/18 17:12 - Assessment/Plan 1. Acute on Chronic systolic HF - improving with Lasix 40mg IV BID, which changed to PO; off metolazone now. On Bblocker, but not on ITALO/ARB 2/2 CKD 2. Chronic Afib - well controlled HR with Metoprolol; on Coumadin, which managed by pharmacy 3. AVRIL on CKD - unchanged; managed by 4. HTN - hypotensive now; cont. to monitor 5. BiV AICD placement - 6. Encephalopathy - improving 7. Severe MR - MAR reviewed * Echo on 08/01/2018 showed EF 25-30%, grade I dd, severe MR, severe TR, mild- mod [place], and severely dilated LA. Pt. seen and eval. by me. I agree with the A/P by the RECEPTIONIST/TELEPHONE OPERATOR. gjm Review of Systems - Review of Systems Constitutional: reports: see HPI
[2018-08-04] MEDS: Melatonin 3 MG TAB PO PRN (01:19)
[2018-08-04 05:20] LABS: INR-International Normal Ratio 1.7; Prothrombin Time 19.7 SEC (12.0-14.7)
[2018-08-04] MEDS ORDERED: Magnesium Oxide 400 MG TAB PO SCH (09:00)
[2018-08-04] MEDS: Potassium Chloride 20 MEQ TAB PO SCH (09:18)
[2018-08-04] MEDS: Polyethylene Glycol 3350 17 GM Packet PO SCH (09:18)
[2018-08-04] MEDS: Aspirin 81 mg Enteric Coated Tablet PO SCH (09:18)
[2018-08-04] MEDS: Senokot S 8.6-50 MG TAB PO SCH (09:19)
[2018-08-04] MEDS: Furosemide 20 MG TAB PO SCH ×2 (09:19→13:35)
[2018-08-04] MEDS: Finasteride 5 MG TAB PO SCH (09:19)
[2018-08-04] MEDS: Famotidine 20 MG TAB PO SCH (09:19)
[2018-08-04 11:10] LABS: Anion Gap 14 mmol/L (10-20); BUN (Urea Nitrogen) 39 mg/dL (8.4-25.7); Calc. Creatinine Clearance 40 mL/min (70-130); Calcium 9.4 mg/dL (7.8-10.44); Carbon Dioxide 32 mmol/L (23-31); Chloride 97 mmol/L (98-107); Estimated GFR-MDRD 34; Glucose 129 mg/dL (83-110); Potassium 3.5 mmol/L (3.5-5.1); Sodium 139 mmol/L (136-145)
[2018-08-04 12:32] VITALS: BP 112/58; TEMP 97.4
--- NOTE | 2018-08-04 14:18 | PDOC.CTH ---
Cardiology Progress Note - Subjective The pt seen and examined. No overnight events. No cardiac complaints. He cont. intermittent confused. He still has mod edema to around bilat thigh and ABDs. - Objective Vital Signs Temp Pulse Pulse Pulse Resp BP BP 08/04/18 12:25 97.4 F L 76 20 08/04/18 11:45 86 135 H 122/61 08/04/18 07:54 98.2 F 74 16 08/04/18 03:00 97.8 F 82 16 111/63 BP Pulse Ox Pulse Ox 08/04/18 12:25 112/58 L 94 L 08/04/18 11:45 94 L 08/04/18 07:54 109/60 96 08/04/18 03:00 93 L Weight 230 lb 14.4 oz 08/03/18 08/04/18 08/05/18 06:59 06:59 06:59 Intake Total 1080 1240 600 Output Total 450 1950 Balance 630 -710 600 - Physical Examination General/Neuro: other: (confused) Heart: other: (irregular) Abdomen: soft Extremities: other: (3+ pitting edema to ABD and Thighs) - Telemetry Telemetry Rhythm: biv paced - Labs Result Diagrams: 08/01/18 06:06 08/04/18 10:39 Troponin/CKMB Troponin I 0.011 ng/mL (< 0.028) 07/30/18 17:12 - Assessment/Plan 1. Acute on Chronic systolic HF - improving with Lasix 40mg IV BID, which changed to PO; off metolazone now. On Bblocker, but not on ITALO/ARB 2/2 CKD 2. Chronic Afib - well controlled HR with Metoprolol; on Coumadin, which managed by pharmacy 3. AVRIL on CKD - unchanged; managed by 4. HTN - hypotensive now; cont. to monitor 5. BiV AICD placement - 6. Encephalopathy - improving 7. Severe MR - MAR reviewed * Echo on 08/01/2018 showed EF 25-30%, grade I dd, severe MR, severe TR, mild- mod [place], and severely dilated LA. Pt. seen and eval. by me. 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 Continue present meds.[email or web address] Review of Systems - Review of Systems Constitutional: reports: no symptoms reported EENTM: reports: no symptoms reported Respiratory: reports: no symptoms reported Cardiac (ROS): reports: no symptoms reported ABD/GI: reports: no symptoms reported : reports: no symptoms reported Musculoskeletal: reports: no symptoms reported
[2018-08-04] MEDS ORDERED: Warfarin Sodium 5 MG TAB PO SCH (17:00)
[2018-08-04] MEDS ORDERED: Warfarin Sodium 3 MG TAB PO SCH (17:00)
== END 2018-08-04 16:00 | DRG 291 ==
LOC: ERS 15:24 → ERHOLD 18:20 → 2SW 07-31 11:09 → OBSVTOIN 08-01 10:16
PROVIDERS: ADMIT Emergency Medicine; ATTEND Emergency Medicine
DX: I13.0 Hypertensive heart and chronic kidney disease with heart failure and stage 1 through stage 4 chronic kidney disease, or unspecified chronic kidney disease (principal); I50.41 Acute combined systolic (congestive) and diastolic (congestive) heart failure; N17.9 Acute kidney failure, unspecified; G93.40 Encephalopathy, unspecified; Z66 Do not resuscitate; N49.2 Inflammatory disorders of scrotum; E86.1 Hypovolemia; I25.10 Atherosclerotic heart disease of native coronary artery without angina pectoris; E87.6 Hypokalemia; I34.0 Nonrheumatic mitral (valve) insufficiency; N18.3 Chronic kidney disease, stage 3 (moderate); I48.2 Chronic atrial fibrillation; Z79.01 Long term (current) use of anticoagulants; Z95.810 Presence of automatic (implantable) cardiac defibrillator
CPT/HCPCS: 36415; 71045; 76870; 80048; 80053; 81003; 83735; 83880; 84443; 84484; 85025; 85610; 85730; 87040; 87086; 93306; 93976; 96365; 96375; J0696; J1940; J7050

== ENCOUNTER 2018-08-08 12:07 | Inpatient (IN) | payer MEDICARE ==
[2018-08-08 12:47] LABS: #Basophils 0.1 thou/uL (0.0-0.2); #Eosinphils 0.1 thou/uL (0.0-0.7); #Lymphocytes 1.6 thou/uL (1.20-3.40); #Monocytes 0.9 thou/uL (0.11-0.59); #Neutrophils 4.2 thou/uL (1.40-6.50); %Eosinophils 1.1 % (0.0-10.0); %Lymphocytes 23.2 % (21.0-51.0); %Monocytes 12.9 % (0.0-10.0); %Neutrophils 61.9 % (42.0-75.0); Hemoglobin 12.6 g/dL (14.0-18.0); Mean Corpuscular HGB CONC 32.1 g/dL (32.0-36.0); Mean Corpuscular Hemoglobin 34.1 pg (27.0-31.0); Mean Platelet Volume 8.1 fL (7.4-10.4); Platelet Count 132 thou/uL (130-400); RBC Distribution Width 14.3 % (11.5-14.5); Red Blood Cell (RBC) Count 3.71 mill/uL (4.70-6.10); White Blood Cell (WBC) Count 6.8 thou/uL (4.8-10.8)
[2018-08-08 13:00] LABS: INR-International Normal Ratio 2.2; Prothrombin Time 24.5 SEC (12.0-14.7)
[2018-08-08 13:01] LABS: PTT 40.6 SEC (22.9-36.1)
[2018-08-08 13:07] LABS: ALT (SGPT) 12 U/L (8-55); AST (SGOT) 26 U/L (5-34); Albumin 3.3 g/dL (3.4-4.8); Alkaline Phosphatase 135 U/L (40-150); Anion Gap 16 mmol/L (10-20); BUN (Urea Nitrogen) 40 mg/dL (8.4-25.7); Bilirubin, Total 3.1 mg/dL (0.2-1.2); CK (CPK) 26 U/L (30-200); Calc. Creatinine Clearance 0 mL/min (70-130); Calcium 9.7 mg/dL (7.8-10.44); Carbon Dioxide 27 mmol/L (23-31); Chloride 97 mmol/L (98-107); Estimated GFR-MDRD 32; Globulin 3.3 g/dL (2.4-3.5); Glucose 108 mg/dL (83-110); Potassium 3.8 mmol/L (3.5-5.1); Protein, Total 6.6 g/dL (5.8-8.1); Sodium 136 mmol/L (136-145)
--- NOTE | 2018-08-08 13:28 | RAD ---
PORTABLE CHEST: Date: 08/08/18 HISTORY: Mental status change. COMPARISON: 07/30/18. FINDINGS/IMPRESSION: Cardiomegaly. Bilateral effusions and bibasilar atelectasis. Mild vascular congestion. AICD leads unc hanged. Similar findings were performed on 07/30/18. POS: [facility]
--- NOTE | 2018-08-08 13:38 | CT ---
CT HEAD WITHOUT CONTRAST: Date: 08/08/18 Multiple axial tomograms obtained through the head without IV enhancement. INDICATION: Mental status change. FINDINGS: Auditory implant device seen on the right producing spray artifact. Mild cortical atrophy. No evidenc e of intracranial mass, hemorrhage, or acute infarct identified. IMPRESSION: No acute process. POS: ADITYA
[2018-08-08] MEDS ORDERED: Ondansetron PF 4 MG/2 ML Vial IVP PRN (15:30)
[2018-08-08] MEDS ORDERED: hydrALAZINE 20 MG/ML VIAL SLOW IVP PRN (15:30)
[2018-08-08] MEDS ORDERED: Ondansetron ODT 4 MG TAB PO PRN (15:30)
[2018-08-08 15:44] VITALS: BMI 32.2
[2018-08-08] MEDS: Sodium Chloride 0.9% 1,000 ML IV SCH (16:04)
[2018-08-08] MEDS: Warfarin Sodium 3 MG TAB PO SCH (16:49)
[2018-08-08 17:24] LABS: Lactic Acid 1.6 mmol/L (0.5-2.2)
--- NOTE | 2018-08-08 17:24 | HP ---
PRIMARY CARE PROVIDER: Dr. Loyda Read. CHIEF COMPLAINT: Altered mental status. HISTORY OF PRESENT ILLNESS: This is an 88-year-old male, who presents from [facility] after [facility] staff noted that the patient with increased somnolence, responsiveness, and confusion. The patient normally alert and oriented x3 per family report as history is obtained after discussions with the emergency room attending as well as with the son, who is at the bedside. The patient had been noted with worsening orientation, confusion, and interactiveness per family reports. The patient has been convalescing and undergoing detention care at [facility] due to severe deconditioning after recent hospital stays in early May and July of 2018. The patient was recently evaluated at [facility] and diagnosed with acute on chronic systolic congestive heart failure with anasarca. The patient also was treated for scrotal cellulitis. The patient's family has noted increasing general weakness and decreased mobilization due to multiple factors and recurrent admissions to the hospital. No specific reported history of documented fever or chills, but the patient was noted with nausea, vomiting, and slurred speech. In the emergency room, the patient underwent CT imaging of the brain after concerning for potential stroke like symptoms, which showed chronic ischemic changes without an acute process. Screening metabolic survey did show elevated ammonia level of 118. At which point, the patient received lactulose 30 g x1 dose. The patient also received 1 L normal saline and Zofran. No specific previous noted history of cirrhosis until early 2018. No chronic alcohol use or history of hepatitis exposure. PAST MEDICAL HISTORY: 1. Nonalcoholic cirrhosis. 2. Acute on chronic systolic congestive heart failure with ejection fraction of 25% to 30%. 3. Chronic atrial fibrillation. 4. Chronic kidney disease, stage 3. 5. Deconditioning. 6. Chronic anticoagulation with Coumadin. 7. Chronic obstructive pulmonary disease. PAST SURGICAL HISTORY: 1. Status post pacemaker placement. 2. Status post cochlear implant. 3. Status post hernia repair. CURRENT MEDICATIONS: 1. Enteric-coated aspirin 81 mg p.o. daily. 2. Finasteride 5 mg p.o. daily. 3. Lasix 60 mg p.o. q.a.m. 4. Melatonin 6 mg p.o. at bedtime p.r.n. 5. Zaroxolyn 5 mg 1 hour before Lasix on Friday and . 6. Metoprolol succinate 50 mg p.o. daily. 7. Pravachol 40 mg p.o. at bedtime. 8. Coumadin 3 mg p.o. daily. 9. Magnesium oxide 400 mg p.o. daily. 10. Protonix 40 mg p.o. b.i.d. ALLERGIES: APIXABAN AND BEE VENOM. FAMILY HISTORY: Positive for hypertension. SOCIAL HISTORY: Currently resides at [facility]. Accompanied by his son and [id number] in the hospital. No alcohol, tobacco, or illicit drug use. Minimally ambulatory, standing at the bedside for 1 to 3 minutes with standby/contact guard assistance. REVIEW OF SYSTEMS: Unobtainable as the patient with current encephalopathy. PHYSICAL EXAMINATION: VITAL SIGNS: On admission, blood pressure 92/52, pulse 73, respiratory rate 18, temperature 97.6 degrees Fahrenheit, and O2 saturation 96% on room air. GENERAL APPEARANCE: This is an 88-year-old male, somnolent, opens eyes to name, lethargic, alert and oriented x1 to name. HEENT: Pupils are equal, round, reactive to light and accommodation. Extraocular muscles are intact. Mild scleral icterus. No conjunctival injection. Nares patent. OP is clear. NECK: Supple. No cervical adenopathy. No thyromegaly. No carotid bruits. No JVD appreciated. Cervical spine with full active and passive range of motion. No meningeal signs noted. CHEST: Few basilar crackles bilaterally. CARDIOVASCULAR: S1 and S2 without noted murmur, rub, or gallop. Left upper chest wall with pacemaker device in place. ABDOMEN: Obese. Landmarks are difficult to palpate due to the patient's body habitus. No palpable mass. No rebound or guarding noted. Dependent edema noted in the bilateral flank region. EXTREMITIES: Warm and dry with fair turgor. Bilateral pitting edema to the mid thighs. Pulses are palpable distally at the dorsalis pedis, posterior tibial, and popliteal arteries bilaterally. Capillary refill less than 2 seconds. NEUROLOGIC: Alert and oriented x1 to person. Lethargic, minimally arousable to direct stimulus. Does not follow commands. PERTINENT LABORATORY DATA AND X-RAY FINDINGS: Sodium 136, potassium 3.8, chloride 97, CO2 of 27, BUN 40, creatinine 2.0, estimated GFR of 32, previously noted 34 on 08/04/2018. Lactic acid level 2.7. Total bilirubin 3.1, AST 26, ALT of 12, alkaline phosphatase 135. Serum ammonia level 118. TSH 3.08, albumin 3.3. CBC showed a white blood cell count of 6.8, hemoglobin 13, hematocrit 39, MCV 106, platelet count 132 with normal differential. PT 24.5, INR 2.2, and PTT 40.6. CT of the brain without contrast dated 08/08/2018, showed no acute intracranial process. Portable chest x-ray dated 08/08/2018, showed cardiomegaly with bilateral pleural effusions with bibasilar atelectasis. EKG dated 08/08/2018 by my interpretation shows a ventricular paced rhythm with heart rates in the 70s. No acute ST-T wave changes noted. ASSESSMENT AND PLAN: 1. Acute toxic metabolic encephalopathy. The patient will be admitted to the medical floor. Suspect secondary to elevated ammonia levels. Continue lactulose 20 g p.o. q.i.d. Continue intravenous normal saline at 50 mL/h. Suspect large component of elevated ammonia level as underlying etiology of the patient's presentation. Continue supportive management and monitor mental status. CT imaging of the brain unremarkable for an acute central process. 2. Hepatic encephalopathy. See #1 above. Suspect component of nonalcoholic steatosis cirrhosis. We will consult GI Service for any further recommendations. Continue lactulose as stated previously in #1. Titrate lactulose to regular bowel movements. Repeat ammonia level in the a.m. 3. Chronic kidney disease, stage 3. Avoid nephrotoxic agents and limit contrast exposure. Serial creatinine monitoring. 4. Nausea and vomiting. Suspect multifactorial in conjunction with #1. Continue antiemetics with Zofran 4 mg IV q.6 hours p.r.n. Intravenous normal saline at 50 mL/h. Clear liquids as tolerated. 5. Chronic systolic congestive heart failure. Appears compensated currently. We will resume home regimen to include Lasix 40 mg b.i.d. Monitor I's and O's as well as daily weight. 6. Chronic anticoagulation. We will continue Coumadin 3 mg daily. Goal INR of 2 to 3. Repeat PT/INR in the a.m. 7. Deconditioning. We will obtain PT and OT evaluation in the a.m. General fall risk precautions. Likely resume detention care after discharge. 8. Prophylaxis. OTF hose to bilateral lower extremities. Protonix 40 mg p.o. b.i.d. General fall risk precautions. 9. Code status is full. Surrogate medical decision maker is the patient's son. Job ID: [id number]
[2018-08-08] MEDS: Famotidine 20 MG TAB PO SCH (20:30)
[2018-08-09] MEDS: Acetaminophen 500 MG TAB PO PRN (01:03)
[2018-08-09 03:57] LABS: INR-International Normal Ratio 2.1; Prothrombin Time 23.5 SEC (12.0-14.7)
[2018-08-09 04:08] LABS: ALT (SGPT) 13 U/L (8-55); AST (SGOT) 24 U/L (5-34); Albumin 3.1 g/dL (3.4-4.8); Alkaline Phosphatase 116 U/L (40-150); Anion Gap 15 mmol/L (10-20); BUN (Urea Nitrogen) 40 mg/dL (8.4-25.7); Bilirubin, Total 3.6 mg/dL (0.2-1.2); Calc. Creatinine Clearance 38 mL/min (70-130); Calcium 9.6 mg/dL (7.8-10.44); Carbon Dioxide 29 mmol/L (23-31); Chloride 100 mmol/L (98-107); Estimated GFR-MDRD 33; Glucose 98 mg/dL (83-110); Potassium 3.7 mmol/L (3.5-5.1); Protein, Total 6.1 g/dL (5.8-8.1); Sodium 140 mmol/L (136-145)
[2018-08-09 04:18] LABS: Band 1 % (5-11); Eosinophils 2 % (0-10); Hemoglobin 11.9 g/dL (14.0-18.0); Lymphocytes 27 % (21-51); MDiff Complete? YES; Mean Corpuscular HGB CONC 32.9 g/dL (32.0-36.0); Mean Corpuscular Hemoglobin 34.7 pg (27.0-31.0); Mean Platelet Volume 7.7 fL (7.4-10.4); Monocytes 11 % (0-10); Neutrophil 59 % (42-75); Platelet Count 121 thou/uL (130-400); RBC Distribution Width 14.5 % (11.5-14.5); Red Blood Cell (RBC) Count 3.43 mill/uL (4.70-6.10)
[2018-08-09] MEDS: Famotidine 20 MG TAB PO SCH ×2 (07:59→21:12)
[2018-08-09] MEDS: Magnesium Oxide 400 MG TAB PO SCH (07:59)
[2018-08-09] MEDS: Furosemide 40 MG TAB PO SCH ×2 (07:59→13:10)
--- NOTE | 2018-08-09 10:45 | CON ---
DATE OF CONSULTATION: 08/09/2018 REASON FOR CONSULTATION: Hepatic encephalopathy. HISTORY OF PRESENT ILLNESS: Alejandro Jung is an 88-year-old man who was admitted to the hospital yesterday from his [facility] with concern for worsening somnolence and confusion. He has been in the longterm facility due to severe deconditioning. He has had multiple recent hospitalizations in May and July of 2018. He has chronic systolic congestive heart failure with ejection fraction of 25% to 30%, He was recently treated for scrotal cellulitis. I met him in May of this year after a single episode of dark emesis with no concurrent decline in hemoglobin. We decided not to pursue any endoscopic investigation at that time and this did not recur. Notably, he had essentially normal EGD and colonoscopy back in October of 2017 elsewhere. Upon presentation here, he was found to have an elevated ammonia level to 118. His total bilirubin is elevated to 3.6. Note, even on prior hospitalizations, he had mild elevation in bilirubin without any other elevation in LFTs. The patient was started on lactulose yesterday. This morning, ammonia level is back down to normal range. He does remain somewhat confused, but it is difficult to tell because not really sure what his baseline is and he is very hard of hearing. PAST MEDICAL HISTORY: Nonalcoholic cirrhosis, acute on chronic systolic congestive heart failure with ejection fraction of 25% to 30%, atrial fibrillation, chronic kidney disease stage 3, deconditioning, COPD, chronic anticoagulation with Coumadin, pacemaker, cochlear implant, hernia repair. OUTPATIENT MEDICATIONS: 1. Aspirin 81 mg daily. 2. Finasteride. 3. Lasix 60 mg daily. 4. Melatonin. 5. Zaroxolyn 5 mg on Friday and . 6. Metoprolol. 7. Pravachol. 8. Coumadin 3 mg daily. 9. Magnesium oxide 400 mg daily. 10. Protonix 40 mg b.i.d. ALLERGIES: APIXABAN AND BEE VENOM. FAMILY HISTORY: Positive for hypertension. SOCIAL HISTORY: [facility]. No alcohol, tobacco, or drug use. REVIEW OF SYSTEMS: Unable to completely obtain review of systems due to difficulty communicating as he is hard of hearing, also it appears still mildly encephalopathic. PHYSICAL EXAMINATION: VITAL SIGNS: Temperature 97.6, pulse 76, blood pressure 105/64, and 95% oxygen saturation on room air. GENERAL: An 88-year-old man, obese, lying in bed comfortably, in no distress. SKIN: No jaundice. No rashes were palpable. He has some ecchymoses to the upper extremities. EYES: No scleral icterus. Extraocular movements intact. ENT: Mucous membranes moist. No oral lesions. LYMPH: No submandibular or supraclavicular lymphadenopathy. Thyroid nontender to palpation. HEART: Regular rate and rhythm. LUNGS: Bibasilar crackles. No respiratory distress. ABDOMEN: Nondistended. Bowel sounds are present. Soft and nontender to palpation throughout. EXTREMITIES: 1+ bilateral lower extremity edema. NEURO: Cranial nerves 2-12 intact bilaterally. He moves all extremities. He does appear to have asterixis. LABORATORY STUDIES: Hemoglobin 11.9, WBC 6.0, platelets 121. INR 2.1. Sodium 140, potassium 3.7, BUN 40, creatinine 1.93. Lactic acid was initially 2.7, now down to 1.6. Total bilirubin is 3.6 with otherwise normal LFTs showing alkaline phosphatase 116, AST 24, ALT 13. Ammonia level was initially 118, now down to 53, albumin 3.1, TSH 3.07. IMAGING STUDIES: Chest x-ray shows cardiomegaly with bilateral pleural effusions, mild vascular congestion. Brain CT shows no acute process. He does have mild cortical atrophy. ASSESSMENT AND PLAN: Hepatic encephalopathy. It is difficult to tell what his baseline mental status is, but with acute worsening mental status in the context of elevated ammonia, it does appear that he does have hepatic encephalopathy. Lactulose has been started and this should be continued, titrated to 2-3 loose bowel movements per day. If this is not satisfactory, then rifaximin 550 mg by mouth twice per day could be added. I note he did have abdominal ultrasound imaging in May showing some nodularity of the liver, otherwise normal common bile duct. He likely does have mild cirrhosis, which is otherwise fairly well compensated. I suspect this is indeed secondary to nonalcoholic steatohepatitis, versus worsening hepatic congestion from his heart failure. No plan for any aggressive workup such as liver biopsy. We will check autoimmune markers and viral hepatitis serologies to be drawn with tomorrow morning's labs. Otherwise, continue current supportive care. Job ID: [id number]
[2018-08-09] MEDS: Sodium Chloride 0.9% 1,000 ML IV SCH (10:59)
--- NOTE | 2018-08-09 12:44 | PDOC.PN ---
- Subjective Encounter Start Date: 08/09/18 Encounter Start Time: 11:00 Subjective: awake, responds to verbal stimuli -: not fully oriented still - Objective Resuscitation Status - Order Detail: 08/08/18 15:14 Resuscitation Status Routine Resuscitation Status: FULL: Full Resuscitation MAR Reviewed: Yes Vital Signs & Weight: Vital Signs (12 hours) Temp Pulse Resp BP Pulse Ox 08/09/18 08:09 99 08/09/18 08:08 97.5 F L 75 20 108/83 94 L Weight Weight 224 lb 13.944 oz I&O: 08/08/18 08/09/18 08/10/18 06:59 06:59 06:59 Intake Total 1279 Balance 1279 Result Diagrams: 08/09/18 03:40 08/09/18 03:39 Phys Exam - Physical Examination HEENT: PERRLA, moist MMs Neck: no JVD, supple Respiratory: no wheezing, no rales Cardiovascular: RRR, no significant murmur Gastrointestinal: soft, non-tender, positive bowel sounds Musculoskeletal: pulses present, edema present Neurological: non-focal, moves all 4 limbs Dx/Plan (1) Hepatic encephalopathy Code(s): K72.90 - HEPATIC FAILURE, UNSPECIFIED WITHOUT COMA Status: Acute (2) Cirrhosis Code(s): K74.60 - UNSPECIFIED CIRRHOSIS OF LIVER Status: Acute Comment: non alcoholic (3) Atrial fibrillation Code(s): I48.91 - UNSPECIFIED ATRIAL FIBRILLATION Status: Chronic Qualifiers: Atrial fibrillation type: chronic Qualified Code(s): I48.2 - Chronic atrial fibrillation Comment: Currently paced, continue Coumadin, Metoprolol (4) Chronic systolic heart failure Code(s): I50.22 - CHRONIC SYSTOLIC (CONGESTIVE) HEART FAILURE Status: Chronic Comment: ef of 25% (5) Generalized weakness Code(s): R53.1 - WEAKNESS Status: Chronic (6) CKD (chronic kidney disease) stage 3, GFR 30-59 ml/min Code(s): N18.3 - CHRONIC KIDNEY DISEASE, STAGE 3 (MODERATE) Status: Suspected - Plan is on lasix bid, lactulose qid, toprol xl -: will change iv fluids to d5ns -: appears to be more awake than yesterday -: PT to mobilize as tolerated -: is having liq stools ?lactulose induced * . Review of Systems - Medications/Allergies Allergies/Adverse Reactions: Allergies Allergy/AdvReac Type Severity Reaction Status Date / Time apixaban [From Eliquis] Allergy Verified 07/30/18 22:20 bee venom protein (honey bee) Allergy Verified 06/14/18 08:18 Medications: Current Medications Acetaminophen (Tylenol) 1,000 mg PO Q6H PRN PRN Reason: Mild Pain (1-3) Last Admin: 08/09/18 01:03 Dose: 1,000 mg Famotidine (Pepcid) 20 mg PO BID [facility] Last Admin: 08/09/18 07:59 Dose: 20 mg Furosemide (Lasix) 40 mg PO 0900,1400 [facility] Last Admin: 08/09/18 07:59 Dose: 40 mg Hydralazine HCl (Apresoline) 10 mg SLOW IVP Q4H PRN PRN Reason: SBP > 180 and HR < 70 Sodium Chloride (Normal Saline 0.9%) 1,000 mls @ 50 mls/hr IV .Q20H [facility] Last Admin: 08/09/18 10:59 Dose: 1,000 mls Lactulose (Lactulose) 20 gm PO QID [facility] Last Admin: 08/09/18 07:59 Dose: 20 gm Magnesium Oxide (Magnesium Oxide) 400 mg PO DAILY [facility] Last Admin: 08/09/18 07:59 Dose: 400 mg Metoprolol Succinate (Toprol Xl) 50 mg PO DAILY [facility] Last Admin: 08/09/18 07:57 Dose: 50 mg Ondansetron HCl (Zofran Odt) 4 mg PO Q6H PRN PRN Reason: Nausea/Vomiting Ondansetron HCl (Zofran) 4 mg IVP Q6H PRN PRN Reason: Nausea/Vomiting Pantoprazole Sodium (Protonix) 40 mg PO BID [facility] Last Admin: 08/09/18 07:56 Dose: 40 mg Warfarin Sodium (Coumadin) 3 mg PO 1700 [facility] Last Admin: 08/08/18 16:49 Dose: 3 mg
[2018-08-09] MEDS: Warfarin Sodium 3 MG TAB PO SCH (16:35)
[2018-08-10] MEDS: Sodium Chloride 0.9% 1,000 ML IV SCH (05:14)
[2018-08-10] MEDS: Famotidine 20 MG TAB PO SCH ×2 (07:35→21:16)
[2018-08-10] MEDS: Magnesium Oxide 400 MG TAB PO SCH (07:35)
[2018-08-10] MEDS: Furosemide 40 MG TAB PO SCH ×2 (07:35→13:50)
[2018-08-10 08:56] LABS: INR-International Normal Ratio 2.5
[2018-08-10 09:01] LABS: Anion Gap 14 mmol/L (10-20); BUN (Urea Nitrogen) 36 mg/dL (8.4-25.7); Calc. Creatinine Clearance 41 mL/min (70-130); Calcium 9.4 mg/dL (7.8-10.44); Carbon Dioxide 29 mmol/L (23-31); Chloride 99 mmol/L (98-107); Estimated GFR-MDRD 36; Glucose 101 mg/dL (83-110); Potassium 3.5 mmol/L (3.5-5.1); Sodium 138 mmol/L (136-145)
[2018-08-10 09:04] LABS: #Basophils 0.1 thou/uL (0.0-0.2); #Eosinphils 0.1 thou/uL (0.0-0.7); #Lymphocytes 1.5 thou/uL (1.20-3.40); #Monocytes 0.9 thou/uL (0.11-0.59); %Basophils 1.1 % (0.0-1.0); %Eosinophils 1.2 % (0.0-10.0); %Lymphocytes 23.3 % (21.0-51.0); %Monocytes 13.6 % (0.0-10.0); %Neutrophils 60.8 % (42.0-75.0); Hemoglobin 12.1 g/dL (14.0-18.0); Mean Corpuscular Hemoglobin 33.3 pg (27.0-31.0); Mean Platelet Volume 7.9 fL (7.4-10.4); Platelet Count 123 thou/uL (130-400); RBC Distribution Width 14.1 % (11.5-14.5); Red Blood Cell (RBC) Count 3.63 mill/uL (4.70-6.10); White Blood Cell (WBC) Count 6.6 thou/uL (4.8-10.8)
[2018-08-10 09:24] LABS: HBCM Index 0.27 S/CO (0-0.79); Hep A IgM AB Non-Reactive (NonReactive); Hep A IgM S/CO 0.26 S/CO (0-0.79); Hep B Surf Ag Non-Reactive S/CO (NonReactive); Hep C IgG Ab Non-Reactive (NonReactive); Hep C Index 0.39 S/CO (0-0.79); Hepatitis B Core IgM Abs Non-Reactive (NonReactive)
--- NOTE | 2018-08-10 10:08 | PRG ---
DATE OF SERVICE: 08/10/2018 SUBJECTIVE: Mr. Jung seems to be doing a lot better today with regard to his mental status. He is easily conversant with me. He answers questions appropriately. He was able to get a good sleep last night. He has no other complaints. OBJECTIVE: VITAL SIGNS: Temperature 97.8, pulse 76, blood pressure 106/62, and 92% oxygen saturation on room air. GENERAL: No acute distress. MENTAL: He is alert and oriented this morning. He is able to answer questions appropriately. HEART: Regular rate and rhythm. LUNGS: Clear to auscultation bilaterally. ABDOMEN: Soft and nontender to palpation. EXTREMITIES: No peripheral edema. LABORATORY STUDIES: WBC 6.6, hemoglobin 12.1, and platelets 123. INR 2.5. Sodium 138, potassium 3.5, BUN 36, and creatinine 1.80. Total IgG is normal range at 1377. Viral hepatitis serologies are all negative. ASSESSMENT AND PLAN: Hepatic encephalopathy, clinically improved. The patient would appear to be back to his baseline mental status. Ammonia level has normalized. I would recommend that he continue on lactulose 20 g given anywhere from 1 to 4 times daily, titrate it to 2 to 3 loose bowel movements per day. This ought to keep him out of trouble with regard to the encephalopathy. His liver disease appears to be otherwise well compensated. I note the negative viral serologies. I suspect autoimmune markers would also be negative. This is likely secondary to nonalcoholic steatohepatitis. No other aggressive liver workup is planned. GI will sign off, but please call back at anytime with questions or concerns. Job ID: [id number]
--- NOTE | 2018-08-10 12:47 | PDOC.PN ---
- Subjective Encounter Start Date: 08/10/18 Encounter Start Time: 11:30 Subjective: awake, oriented well -: ate his breakfast -: follows verbal stimuli - Objective Resuscitation Status - Order Detail: 08/08/18 15:14 Resuscitation Status Routine Resuscitation Status: DNAR: NO Resuscitation Discussed with: d/w POA and son Mr.Braun Du SHANKS Reviewed: Yes Vital Signs & Weight: Vital Signs (12 hours) Temp Pulse Resp BP Pulse Ox 08/10/18 08:00 92 L 08/10/18 07:49 97.8 F 76 20 106/62 92 L Weight Weight 224 lb 13.944 oz I&O: 08/09/18 08/10/18 08/11/18 06:59 06:59 06:59 Intake Total 1279 2280 Balance 1279 2280 Result Diagrams: 08/10/18 08:29 08/10/18 08:29 Phys Exam - Physical Examination HEENT: PERRLA, moist MMs Neck: no JVD, supple Respiratory: no wheezing, no rales Cardiovascular: RRR, no significant murmur Gastrointestinal: soft, non-tender, positive bowel sounds Musculoskeletal: pulses present, edema present Neurological: non-focal, moves all 4 limbs Psychiatric: normal affect, A&O x 3 Dx/Plan (1) Hepatic encephalopathy Code(s): K72.90 - HEPATIC FAILURE, UNSPECIFIED WITHOUT COMA Status: Resolved (2) Cirrhosis Code(s): K74.60 - UNSPECIFIED CIRRHOSIS OF LIVER Status: Chronic Comment: non alcoholic (3) Atrial fibrillation Code(s): I48.91 - UNSPECIFIED ATRIAL FIBRILLATION Status: Chronic Qualifiers: Atrial fibrillation type: chronic Qualified Code(s): I48.2 - Chronic atrial fibrillation Comment: Currently paced, continue Coumadin, Metoprolol (4) Chronic systolic heart failure Code(s): I50.22 - CHRONIC SYSTOLIC (CONGESTIVE) HEART FAILURE Status: Chronic Comment: ef of 25% (5) Generalized weakness Code(s): R53.1 - WEAKNESS Status: Chronic (6) CKD (chronic kidney disease) stage 3, GFR 30-59 ml/min Code(s): N18.3 - CHRONIC KIDNEY DISEASE, STAGE 3 (MODERATE) Status: Suspected - Plan hemostable -: stool studies are -ve for any inf -: dc iv fluids, is tolerating oral diet -: continue lasix oral bid, lactulose, toprol, coumadin and protonix -: likely dc plan in am if stable, PT to amb as tolerated * . Review of Systems - Medications/Allergies Allergies/Adverse Reactions: Allergies Allergy/AdvReac Type Severity Reaction Status Date / Time apixaban [From Eliquis] Allergy Verified 07/30/18 22:20 bee venom protein (honey bee) Allergy Verified 06/14/18 08:18 Medications: Current Medications Acetaminophen (Tylenol) 1,000 mg PO Q6H PRN PRN Reason: Mild Pain (1-3) Last Admin: 08/09/18 01:03 Dose: 1,000 mg Famotidine (Pepcid) 20 mg PO BID [facility] Last Admin: 08/10/18 07:35 Dose: 20 mg Furosemide (Lasix) 40 mg PO 0900,1400 [facility] Last Admin: 08/10/18 07:35 Dose: 40 mg Hydralazine HCl (Apresoline) 10 mg SLOW IVP Q4H PRN PRN Reason: SBP > 180 and HR < 70 Lactulose (Lactulose) 20 gm PO QID [facility] Last Admin: 08/10/18 07:35 Dose: 20 gm Magnesium Oxide (Magnesium Oxide) 400 mg PO DAILY [facility] Last Admin: 08/10/18 07:35 Dose: 400 mg Metoprolol Succinate (Toprol Xl) 25 mg PO DAILY [facility] Last Admin: 08/10/18 08:38 Dose: 25 mg Ondansetron HCl (Zofran Odt) 4 mg PO Q6H PRN PRN Reason: Nausea/Vomiting Ondansetron HCl (Zofran) 4 mg IVP Q6H PRN PRN Reason: Nausea/Vomiting Pantoprazole Sodium (Protonix) 40 mg PO BID [facility] Last Admin: 08/10/18 07:35 Dose: 40 mg Warfarin Sodium (Coumadin) 3 mg PO 1700 [facility] Last Admin: 08/09/18 16:35 Dose: 3 mg
[2018-08-10] MEDS: Warfarin Sodium 3 MG TAB PO SCH (16:10)
[2018-08-11] MEDS: Magnesium Oxide 400 MG TAB PO SCH (08:21)
[2018-08-11] MEDS: Famotidine 20 MG TAB PO SCH ×2 (08:21→20:30)
[2018-08-11] MEDS: Furosemide 40 MG TAB PO SCH (08:21)
[2018-08-11] MEDS: Acetaminophen 500 MG TAB PO PRN (08:22)
[2018-08-11 09:46] LABS: INR-International Normal Ratio 2.7; Prothrombin Time 28.9 SEC (12.0-14.7)
[2018-08-11 09:58] LABS: Anion Gap 15 mmol/L (10-20); BUN (Urea Nitrogen) 36 mg/dL (8.4-25.7); Calc. Creatinine Clearance 42 mL/min (70-130); Calcium 9.4 mg/dL (7.8-10.44); Carbon Dioxide 27 mmol/L (23-31); Chloride 98 mmol/L (98-107); Estimated GFR-MDRD 37; Glucose 132 mg/dL (83-110); Potassium 3.9 mmol/L (3.5-5.1); Sodium 136 mmol/L (136-145)
--- NOTE | 2018-08-11 13:15 | PDOC.PN ---
- Subjective Encounter Start Date: 08/11/18 Encounter Start Time: 11:00 Subjective: no sob, is awake and responding well to questions -: not fully oriented this am -: ate his breakfast, has ambulated in hallway - Objective Resuscitation Status - Order Detail: 08/08/18 15:14 Resuscitation Status Routine Resuscitation Status: DNAR: NO Resuscitation Discussed with: d/w POA and son Mr.Braun Du SHANKS Reviewed: Yes Vital Signs & Weight: Vital Signs (12 hours) Temp Pulse Resp BP BP Pulse Ox 08/11/18 11:26 98.1 F 73 20 96/59 L 94 L 08/11/18 08:00 94 L 08/11/18 07:50 97.9 F 76 20 99/58 L 94 L Weight Weight 224 lb 13.944 oz I&O: 08/10/18 08/11/18 08/12/18 06:59 06:59 06:59 Intake Total 2280 950 Balance 2280 950 Result Diagrams: 08/10/18 08:29 08/11/18 09:06 Phys Exam - Physical Examination HEENT: PERRLA, moist MMs Neck: supple engorged veins, jvd++ Respiratory: no wheezing rales++ Cardiovascular: RRR, no significant murmur Gastrointestinal: soft, non-tender, positive bowel sounds Musculoskeletal: no edema, pulses present Neurological: non-focal, moves all 4 limbs Dx/Plan (1) Hepatic encephalopathy Code(s): K72.90 - HEPATIC FAILURE, UNSPECIFIED WITHOUT COMA Status: Resolved (2) Cirrhosis Code(s): K74.60 - UNSPECIFIED CIRRHOSIS OF LIVER Status: Chronic Comment: non alcoholic (3) Atrial fibrillation Code(s): I48.91 - UNSPECIFIED ATRIAL FIBRILLATION Status: Chronic Qualifiers: Atrial fibrillation type: chronic Qualified Code(s): I48.2 - Chronic atrial fibrillation Comment: Currently paced, continue Coumadin, Metoprolol (4) Chronic systolic heart failure Code(s): I50.22 - CHRONIC SYSTOLIC (CONGESTIVE) HEART FAILURE Status: Chronic Comment: with current exac, ef of 25% (5) Generalized weakness Code(s): R53.1 - WEAKNESS Status: Chronic (6) CKD (chronic kidney disease) stage 3, GFR 30-59 ml/min Code(s): N18.3 - CHRONIC KIDNEY DISEASE, STAGE 3 (MODERATE) Status: Suspected - Plan sbp around 100, needs diuresis -: lasix 20mg iv q12h, has engorged veins in neck/jvd++ -: increase lactulose to tid, a bit confused this am than yesterday -: has amb in hallway around 150ft yest -: continue toprol, coumadin, protonix * . Prognosis guarded, is DNAR. Review of Systems - Medications/Allergies Allergies/Adverse Reactions: Allergies Allergy/AdvReac Type Severity Reaction Status Date / Time apixaban [From Eliquis] Allergy Verified 07/30/18 22:20 bee venom protein (honey bee) Allergy Verified 06/14/18 08:18 Medications: Current Medications Acetaminophen (Tylenol) 1,000 mg PO Q6H PRN PRN Reason: Mild Pain (1-3) Last Admin: 08/11/18 08:22 Dose: 1,000 mg Famotidine (Pepcid) 20 mg PO BID [facility] Last Admin: 08/11/18 08:21 Dose: 20 mg Furosemide (Lasix) 20 mg SLOW IVP 0600,1400 [facility] Hydralazine HCl (Apresoline) 10 mg SLOW IVP Q4H PRN PRN Reason: SBP > 180 and HR < 70 Lactulose (Lactulose) 20 gm PO TID [facility] Magnesium Oxide (Magnesium Oxide) 400 mg PO DAILY [facility] Last Admin: 08/11/18 08:21 Dose: 400 mg Metoprolol Succinate (Toprol Xl) 25 mg PO DAILY [facility] Last Admin: 08/11/18 08:24 Dose: Not Given Ondansetron HCl (Zofran Odt) 4 mg PO Q6H PRN PRN Reason: Nausea/Vomiting Ondansetron HCl (Zofran) 4 mg IVP Q6H PRN PRN Reason: Nausea/Vomiting Pantoprazole Sodium (Protonix) 40 mg PO BID [facility] Last Admin: 08/11/18 08:21 Dose: 40 mg Warfarin Sodium (Coumadin) 3 mg PO 1700 [facility] Last Admin: 08/10/18 16:10 Dose: 3 mg
[2018-08-11] MEDS ORDERED: Furosemide 20 MG/2 ML VIAL SLOW IVP SCH (14:00)
[2018-08-11] MEDS: Warfarin Sodium 3 MG TAB PO SCH (17:05)
[2018-08-11] MEDS ORDERED: Furosemide 40 MG/4 ML VIAL SLOW IVP SCH (19:30)
--- NOTE | 2018-08-11 20:28 | CON ---
DATE OF CONSULTATION: REASON FOR CONSULTATION: Hyperkalemia and renal insufficiency. IMPRESSION: 1. Hypovolemia in the context of cardiac decompensation. 2. Chronic kidney disease, more or less at baseline with a creatinine of 1.79, chronic kidney disease stage 3. 3. Cardiac failure with estimated ejection fraction of about 25% to 30% as per recent echocardiogram. PLAN: 1. Parenteral diuresis to circumvent the limited effect of congestive gastroenteropathy to oral diuretics. 2. If the patient's hemodynamics remained stable and if found that the patient is not diuresing adequately, the loop diuretic could be augmented with metolazone. 3. Renally dose all medications for low GFR and avoid potentially nephrotoxic agents. 4. Monitor the renal function closely as the patient begins to undergo more diuresis. HISTORY OF PRESENT ILLNESS: History is that of an 88-year-old gentleman with chronic kidney disease stage 3, recently admitted with cardiac decompensation, did respond very well to diuretics and discharged. The patient now re-presented with altered mental status with high level of ammonia, for which gastroenterology is on the case. The patient; however, has been noted with elevated jugular venous pressure, shortness of breath, and evidence of pulmonary congestion despite being on diuresis. As a result of these findings, decision has been taken to involve Renal in the management of this case. PAST MEDICAL HISTORY: Significant for nonalcoholic cirrhosis, acute systolic congestive heart failure, atrial fibrillation obstructive sleep apnea and coagulopathic on Coumadin. MEDICATIONS: Reviewed and as documented on [employer]. ALLERGIES: APIXABAN AND BEE STING. FAMILY HISTORY: Not significantly related to presenting illness. SOCIAL HISTORY: [facility]. Denies alcohol, tobacco, or illicit drug use. REVIEW OF SYSTEMS: As documented in the body of the history. All other systems were reviewed and found not to be significantly related to presenting illness. PHYSICAL EXAMINATION: GENERAL: The patient was found not to be in any obvious distress. VITAL SIGNS: Temperature 97.4, pulse 75, respiratory rate of 18, and O2 saturation 96% with blood pressure 101/58. HEENT: Unremarkable. CARDIOVASCULAR SYSTEM: First and second heart sounds were heard with significant elevated jugular venous pressure. RESPIRATORY SYSTEM: Clear to auscultation. DIGESTIVE SYSTEM: Revealed a benign abdomen. EXTREMITIES: Showed 1+ peripheral edema. SKIN: No new gross rash. LYMPHATICS: No peripheral lymphadenopathy. SUMMARY: An 88-year-old gentleman with moderately advanced chronic kidney disease, who presented here. Condition of the patient at the time of dictation is fair. Job ID: [id number]
[2018-08-12] MEDS: Furosemide 40 MG/4 ML VIAL SLOW IVP SCH ×2 (06:23→14:35)
[2018-08-12 07:49] LABS: Prothrombin Time 31.5 SEC (12.0-14.7)
[2018-08-12] MEDS: Magnesium Oxide 400 MG TAB PO SCH (08:09)
[2018-08-12] MEDS: Famotidine 20 MG TAB PO SCH ×2 (08:09→20:05)
[2018-08-12] MEDS: Acetaminophen 500 MG TAB PO PRN (08:12)
[2018-08-12 15:57] LABS: ANA Symphony (Qualitative) Negative (Negative); ANA Symphony (Quantitative) 0.2 Ratio (< 0.7 Negative); EliA Vaculitis New Method **** NEW METHOD ****; Mitochondrial Ab 1.3 U/mL (<4 Negative); dsDNA IgG Antibody 1.1 IU/mL (<10 Negative)
--- NOTE | 2018-08-12 16:19 | PDOC.PN ---
- Subjective Encounter Start Date: 08/12/18 Encounter Start Time: 16:18 Subjective: feels well .denies any discomfort ,chest pain or SOB -: very hard of hearing - Objective Resuscitation Status - Order Detail: 08/08/18 15:14 Resuscitation Status Routine Resuscitation Status: DNAR: NO Resuscitation Discussed with: d/w POA and son Mr.Braun Du SHANKS Reviewed: Yes Vital Signs & Weight: Vital Signs (12 hours) Temp Pulse Resp BP Pulse Ox 08/12/18 08:00 94 L 08/12/18 07:35 97.3 F L 76 20 114/76 94 L Weight Weight 224 lb 13.944 oz I&O: 08/11/18 08/12/18 08/13/18 06:59 06:59 06:59 Intake Total 950 430 Balance 950 430 Result Diagrams: 08/10/18 08:29 08/11/18 09:06 Additional Labs: Microbiology 08/09/18 10:06 Stool Campylobacter Antigen Assay - Final 08/09/18 10:06 Stool Shiga Toxin Test - Final 08/09/18 10:06 Stool C. difficile GDH Antigen & Toxins - Final 08/09/18 10:06 Stool Stool Culture - Preliminary 08/08/18 12:47 Venous blood - Left Hand Blood Culture - Preliminary NO GROWTH AT 48 HOURS 08/08/18 12:39 Venous blood - Right Hand Blood Culture - Preliminary NO GROWTH AT 48 HOURS Laboratory Tests 08/04/18 08/08/18 08/09/18 10:39 12:40 03:39 Creatinine 1.90 H 2.00 H 1.93 H IgG Total Smooth Muscle Ab Titer Hepatitis A IgM Ab Hep Bs Antigen Hep B Core IgM Ab Hepatitis C Antibody 08/10/18 08/10/18 08/10/18 08:29 08:29 08:29 Creatinine IgG Total 1377.00 Smooth Muscle Ab Titer 43 H Hepatitis A IgM Ab Non-Reactive Hep Bs Antigen Non-Reactive Hep B Core IgM Ab Non-Reactive Hepatitis C Antibody Non-Reactive 08/10/18 08/11/18 08:29 09:06 Creatinine 1.80 H 1.76 H IgG Total Smooth Muscle Ab Titer Hepatitis A IgM Ab Hep Bs Antigen Hep B Core IgM Ab Hepatitis C Antibody Phys Exam - Physical Examination Constitutional: NAD sitting up at the side of bed,eating lunch HEENT: PERRLA, moist MMs, sclera anicteric, oral pharynx no lesions Neck: no nodes, no JVD, supple, full ROM Respiratory: no wheezing, clear to auscultation bilateral Cardiovascular: RRR, no significant murmur Gastrointestinal: soft, non-tender, no distention, positive bowel sounds Musculoskeletal: pulses present, edema present Neurological: non-focal, normal sensation, moves all 4 limbs Psychiatric: normal affect, A&O x 3 Skin: no rash Dx/Plan (1) Acute CHF (congestive heart failure) Code(s): I50.9 - HEART FAILURE, UNSPECIFIED Status: Acute Qualifiers: Heart failure type: combined systolic and diastolic Qualified Code(s): I50.41 - Acute combined systolic (congestive) and diastolic (congestive) heart failure Comment: EF 25-30%,AICD in place. continued IV lasix, likley hepatorenal (2) AVRIL (acute kidney injury) Code(s): N17.9 - ACUTE KIDNEY FAILURE, UNSPECIFIED Status: Acute Comment: improving (3) Cirrhosis Code(s): K74.60 - UNSPECIFIED CIRRHOSIS OF LIVER Status: Chronic Comment: non alcoholic (4) CKD (chronic kidney disease) stage 3, GFR 30-59 ml/min Code(s): N18.3 - CHRONIC KIDNEY DISEASE, STAGE 3 (MODERATE) Status: Suspected (5) Hepatic encephalopathy Code(s): K72.90 - HEPATIC FAILURE, UNSPECIFIED WITHOUT COMA Status: Resolved (6) Physical deconditioning Code(s): R53.81 - OTHER MALAISE Status: Acute (7) Atrial fibrillation Code(s): I48.91 - UNSPECIFIED ATRIAL FIBRILLATION Status: Chronic Qualifiers: Atrial fibrillation type: chronic Qualified Code(s): I48.2 - Chronic atrial fibrillation Comment: Currently paced, continue Coumadin, Metoprolol.INR therapeutic.Monitor (8) Chronic anticoagulation Code(s): Z79.01 - [employer] (CURRENT) USE OF ANTICOAGULANTS Status: Chronic Comment: Daily PT/INR, continue Coumadin, will have pharmacy monitor in house (9) Chronic systolic heart failure Code(s): I50.22 - CHRONIC SYSTOLIC (CONGESTIVE) HEART FAILURE Status: Chronic Comment: with current exac, ef of 25% (10) Generalized weakness Code(s): R53.1 - WEAKNESS Status: Chronic (11) Severe tricuspid regurgitation by prior echocardiogram Code(s): I07.1 - RHEUMATIC TRICUSPID INSUFFICIENCY Status: Chronic - Plan PT/OT, DVT proph w/SCDs cont diuresis. improving clinically -: likley back to [facility] in am -: OT,PT. -: Home meds as below -: am labs * . Review of Systems - Review of Systems Constitutional: negative: fever, chills, sweats, weakness, malaise, other Respiratory: negative: Cough, Dry, Shortness of Breath, Hemoptysis, SOB with Excertion, Pleuritic Pain, Sputum, Wheezing Cardiovascular: edema. negative: chest pain, palpitations, orthopnea, paroxysmal nocturnal dyspnea, light headedness, other Gastrointestinal: negative: Nausea, Vomiting, Abdominal Pain, Diarrhea, Constipation, Melena, Hematochezia, Other Musculoskeletal: negative: Neck Pain, Shoulder Pain, Arm Pain, Back Pain, Hand Pain, Leg Pain, Foot Pain, Other - Medications/Allergies Allergies/Adverse Reactions: Allergies Allergy/AdvReac Type Severity Reaction Status Date / Time apixaban [From Eliquis] Allergy Verified 07/30/18 22:20 bee venom protein (honey bee) Allergy Verified 06/14/18 08:18 Medications: Current Medications Acetaminophen (Tylenol) 1,000 mg PO Q6H PRN PRN Reason: Mild Pain (1-3) Last Admin: 08/12/18 08:12 Dose: 1,000 mg Famotidine (Pepcid) 20 mg PO BID [facility] Last Admin: 08/12/18 08:09 Dose: 20 mg Furosemide (Lasix) 40 mg SLOW IVP 0600,1400 [facility] Last Admin: 08/12/18 14:35 Dose: 40 mg Hydralazine HCl (Apresoline) 10 mg SLOW IVP Q4H PRN PRN Reason: SBP > 180 and HR < 70 Lactulose (Lactulose) 20 gm PO TID [facility] Last Admin: 08/12/18 14:38 Dose: 20 gm Magnesium Oxide (Magnesium Oxide) 400 mg PO DAILY [facility] Last Admin: 08/12/18 08:09 Dose: 400 mg Metoprolol Succinate (Toprol Xl) 25 mg PO DAILY [facility] Last Admin: 08/12/18 08:09 Dose: 25 mg Ondansetron HCl (Zofran Odt) 4 mg PO Q6H PRN PRN Reason: Nausea/Vomiting Ondansetron HCl (Zofran) 4 mg IVP Q6H PRN PRN Reason: Nausea/Vomiting Pantoprazole Sodium (Protonix) 40 mg PO BID [facility] Last Admin: 08/12/18 08:09 Dose: 40 mg Warfarin Sodium (Coumadin) 3 mg PO 1700 [facility] Last Admin: 08/11/18 17:05 Dose: 3 mg
[2018-08-12] MEDS: Warfarin Sodium 3 MG TAB PO SCH (17:15)
--- NOTE | 2018-08-12 19:58 | PRG ---
DATE OF SERVICE: 08/12/2018 SUBJECTIVE: The patient was seen and examined with no new complaint. OBJECTIVE: VITAL SIGNS: Noted with the following vital signs; blood pressure 114/76, pulse of 76, respiratory rate of 20, O2 saturation of 94%, afebrile. HEENT: Unremarkable. CARDIOVASCULAR SYSTEM: First and second heart sounds were heard. RESPIRATORY SYSTEM: Clear to auscultation. DIGESTIVE SYSTEM: Revealed a benign abdomen. EXTREMITIES: No peripheral edema. SKIN: No new gross rash. LYMPHATICS: No peripheral lymphadenopathy. IMPRESSION: 1. Congestive heart failure exacerbation. 2. Acute on chronic kidney disease. 3. Nonalcoholic cirrhosis. 4. Chronic kidney disease stage 3. 5. Hepatic encephalopathy. PLAN: 1. The patient currently doing well on diuretics. We will continue with this regimen. However, at the point of discharge, the patient likely to transition over to oral loop diuretics, been augmented with metolazone. 2. Renally dose all medications for low GFR and avoid potentially nephrotoxic agents. 3. Further management to be dependent on the clinical course. Job ID: [id number]
[2018-08-13] MEDS: Furosemide 40 MG/4 ML VIAL SLOW IVP SCH ×2 (05:05→14:05)
[2018-08-13 08:27] LABS: INR-International Normal Ratio 3.4; Prothrombin Time 34.5 SEC (12.0-14.7)
[2018-08-13] MEDS: Famotidine 20 MG TAB PO SCH (09:05)
[2018-08-13] MEDS: Magnesium Oxide 400 MG TAB PO SCH (09:06)
[2018-08-13 10:55] LABS: Anion Gap 14 mmol/L (10-20); BUN (Urea Nitrogen) 30 mg/dL (8.4-25.7); Calc. Creatinine Clearance 41 mL/min (70-130); Calcium 9.3 mg/dL (7.8-10.44); Carbon Dioxide 29 mmol/L (23-31); Chloride 98 mmol/L (98-107); Estimated GFR-MDRD 36; Glucose 140 mg/dL (83-110); Potassium 3.6 mmol/L (3.5-5.1); Sodium 137 mmol/L (136-145)
--- NOTE | 2018-08-13 12:08 | PRG ---
DATE OF SERVICE: 08/13/2018 SUBJECTIVE: The patient was seen and examined. OBJECTIVE: GENERAL: In no distress. VITAL SIGNS: Noted with the following vital signs, afebrile, temperature 97.7, pulse 75, respiratory rate of 20, O2 saturation of 98% with a blood pressure of 101/62. HEENT: Unremarkable. Moist oral mucosa. Neck was supple. No conjunctival injection or icterus. CARDIOVASCULAR SYSTEM: First and second heart sounds were heard. RESPIRATORY SYSTEM: Clear to auscultation. DIGESTIVE SYSTEM: Revealed a benign abdomen. Positive bowel sounds. EXTREMITIES: No peripheral edema. SKIN: No new gross rash. LYMPHATICS: No peripheral lymphadenopathy. LABORATORY INVESTIGATION: Reviewed. Creatinine of 1.78 with a BUN of 30. IMPRESSION: 1. Acute on chronic systolic congestive heart failure exacerbation. 2. Chronic kidney disease, stage 3. 3. Hypervolemia. PLAN: 1. The patient can be discharged on 40 mg of p.o. Lasix b.i.d. with p.r.n. Zaroxolyn in combo. 2. Renally dose all medications. 3. Further management to be dependent on the clinical course. Job ID: [id number]
[2018-08-13 14:53] VITALS: BP 95/58; TEMP 97.5
--- NOTE | 2018-08-13 15:18 | PDOC.EVN ---
Event Note - Event Note Event Note: NO ITALO-I/ARB DUE TO AVRIL AND LOW BP.
--- NOTE | 2018-08-14 02:19 | DIS ---
DATE OF ADMISSION: 08/08/2018 DATE OF DISCHARGE: 08/13/2018 DISCHARGE DISPOSITION: Back to [facility]. DISCHARGE DIAGNOSES: 1. Acute on chronic systolic congestive heart failure. 2. stage C. 3. Acute kidney injury, improving. 4. Nonalcoholic liver cirrhosis. 5. Hepatic encephalopathy, acute, resolved. 6. Chronic kidney disease, stage 3. 7. Physical deconditioning. 8. Chronic paroxysmal atrial fibrillation, on chronic anticoagulation with Coumadin. 9. Generalized weakness. 10. Severe tricuspid regurgitation. DISCHARGE MEDICATION: 1. Melatonin 6 mg p.o. at bedtime p.r.n. 2. Finasteride 5 mg p.o. daily. 3. Aspirin 81 mg daily. 4. Zaroxolyn 5 mg p.o. as directed for swelling. 5. Magnesium oxide 400 mg daily. 6. Lasix 40 mg p.o. b.i.d. 7. Warfarin 3 mg p.o. daily. The patient will hold the warfarin for today and tomorrow and get the INR checked in 2 days before restarting it. 8. Pravastatin 40 mg daily. 9. Protonix 40 mg p.o. b.i.d. 10. Toprol-XL 25 mg p.o. daily. 11. Lactulose 20 mg p.o. t.i.d. IN-HOUSE CONSULTATION: 1. Gastroenterology, Dr. Anshul Marsh. 2. Nephrology, Dr. Kaden Abraham. PROCEDURES DONE IN HOSPITAL: CT scan of the brain upon presentation, which is negative for any acute processes. HISTORY OF PRESENTING ILLNESS: Mr. Jung is an 88-year-old very pleasant man with past medical history of chronic systolic congestive heart failure with EF of 20% to 30% with AICD in place, as well as history of chronic atrial fibrillation, on chronic Coumadin and nonalcoholic liver cirrhosis and chronic kidney disease, who presented to the emergency room with complaints of altered mental status. He was recently admitted to our facility and was treated for acute CHF, anasarca, and scrotal cellulitis. He was recently moved to [facility], but was brought back when he developed altered mental status. He was noted to have nausea, vomiting, and slurred speech. CT scan done in the emergency room did not show anything acute. Metabolic survey showed elevated ammonia level of 118. He was started on lactulose, saline, and was given Zofran and was admitted for further evaluation and care. Gastroenterology was consulted. Please see admission history and physical dictated by Dr. Bustillos on 08/08/2018, for full details. HOSPITAL COURSE: His ammonia level gradually came back normal and his mentation improved. Dr. Marsh from GI saw the patient and recommended continuing the lactulose t.i.d. as scheduled dose, which was done. With regard to his acute renal insufficiency, Nephrology was consulted. His admission creatinine was 2.00, which improved to 1.78 which is more close to his baseline. He was also found to have diffuse swelling and anasarca left over from his last admission, so he was diuresed by IV and eventually was changed to Lasix twice a day. His Toprol dose has been reduced because of some low blood pressures in the hospital. His INR was monitored and it was 3.4 on the day of discharge, so he will hold his Coumadin today and tomorrow and get his INR checked at the rehab facility in 2 days before restarting it. As of this morning, he is back to his baseline, is eating, drinking and is awake, alert, and oriented x3, and is eager to get out of the hospital. Nephrology has cleared the patient for discharge and Gastroenterology has signed off. He was seen and examined prior to discharge. PHYSICAL EXAMINATION: VITAL SIGNS: This morning, temperature 97.5, pulse 70, respirations 20, saturating 97% on room air, blood pressure 95/58. GENERAL: No acute distress. Awake, alert, and oriented x3. CHEST: Clear to auscultation bilaterally. HEART: Rate and rhythm are regular. EXTREMITIES: Still show +1 pitting edema bilaterally, but it has significantly improved in comparison to his admission. TIME SPENT: Total time spent in the discharge of this patient 35 minutes. He remains a high risk for readmission because of multiple comorbidities, advanced age, and poor cardiac function. Job ID: [id number]
== END 2018-08-13 15:29 | DRG 441 ==
LOC: ERS 12:07 → T4-A 13:34
PROVIDERS: ADMIT Family Medicine; ATTEND Family Medicine
DX: K72.00 Acute and subacute hepatic failure without coma (principal); I50.23 Acute on chronic systolic (congestive) heart failure; G92 Toxic encephalopathy; N17.9 Acute kidney failure, unspecified; Z66 Do not resuscitate; K74.60 Unspecified cirrhosis of liver; N18.3 Chronic kidney disease, stage 3 (moderate); I48.2 Chronic atrial fibrillation; J44.9 Chronic obstructive pulmonary disease, unspecified; G47.33 Obstructive sleep apnea (adult) (pediatric); I07.1 Rheumatic tricuspid insufficiency; I73.9 Peripheral vascular disease, unspecified; Z96.21 Cochlear implant status; Z95.0 Presence of cardiac pacemaker; Z79.82 Long term (current) use of aspirin; Z79.01 Long term (current) use of anticoagulants; Z79.899 Other long term (current) drug therapy; Z88.8 Allergy status to other drugs, medicaments and biological substances; Z91.030 Bee allergy status; Z23 Encounter for immunization
CPT/HCPCS: 36415; 70450; 71045; 80048; 80053; 80074; 82140; 82550; 83516; 83605; 84443; 84484; 85007; 85025; 85027; 85610; 85730; 86038; 86225; 87040; 87045; 87046; 87324; 87449; 87899; 93005; 96360; J1940

== ENCOUNTER 2018-09-02 19:48 | Inpatient (IN) | payer MEDICARE ==
--- NOTE | 2018-09-02 20:45 | RAD ---
PORTABLE CHEST ONE VIEW 09/02/18 at 8:21 p.m. HISTORY: Cough. Shortness of breath, congestion. FINDINGS/IMPRESSION: Comparison made with exam of 08/08/18. Left sided AICD remains in place. The heart is enlarged. There is pulmonary vascular congestion with bilateral pleural effusions and bibasilar infiltrates. No pneumothoraces are seen. POS: [facility]
[2018-09-02 21:16] LABS: #Basophils 0.1 thou/uL (0.0-0.2); #Eosinphils 0.1 thou/uL (0.0-0.7); #Lymphocytes 1.3 thou/uL (1.20-3.40); #Monocytes 0.9 thou/uL (0.11-0.59); #Neutrophils 4.2 thou/uL (1.40-6.50); %Basophils 0.8 % (0.0-1.0); %Eosinophils 1.3 % (0.0-10.0); %Monocytes 13.9 % (0.0-10.0); Hemoglobin 11.8 g/dL (14.0-18.0); Mean Corpuscular HGB CONC 33.4 g/dL (32.0-36.0); Mean Corpuscular Hemoglobin 34.9 pg (27.0-31.0); Mean Platelet Volume 7.8 fL (7.4-10.4); Platelet Count 122 thou/uL (130-400); RBC Distribution Width 15.1 % (11.5-14.5); Red Blood Cell (RBC) Count 3.39 mill/uL (4.70-6.10); White Blood Cell (WBC) Count 6.5 thou/uL (4.8-10.8)
[2018-09-02 21:35] LABS: ALT (SGPT) 10 U/L (8-55); AST (SGOT) 25 U/L (5-34); Albumin 3.1 g/dL (3.4-4.8); Alkaline Phosphatase 129 U/L (40-150); Anion Gap 14 mmol/L (10-20); BUN (Urea Nitrogen) 47 mg/dL (8.4-25.7); Bilirubin, Total 2.6 mg/dL (0.2-1.2); Calc. Creatinine Clearance 0 mL/min (70-130); Calcium 9.1 mg/dL (7.8-10.44); Carbon Dioxide 33 mmol/L (23-31); Chloride 91 mmol/L (98-107); Estimated GFR-MDRD 32; Globulin 2.9 g/dL (2.4-3.5); Glucose 118 mg/dL (83-110); Potassium 3.4 mmol/L (3.5-5.1); Sodium 135 mmol/L (136-145)
[2018-09-02] MEDS ORDERED: Furosemide 20 MG/2 ML VIAL ONE (22:18)
[2018-09-02] MEDS ORDERED: Furosemide 40 MG/4 ML VIAL ONE (22:18)
[2018-09-02 22:35] LABS: Prothrombin Time 52.1 SEC (12.0-14.7)
[2018-09-02 22:41] LABS: INR-International Normal Ratio 5.8
[2018-09-03 00:10] LABS: Troponin I 0.029 ng/mL (< 0.028)
[2018-09-03 02:03] VITALS: BMI 36.7
[2018-09-03] MEDS ORDERED: Ondansetron ODT 4 MG TAB PO PRN (02:48)
[2018-09-03] MEDS ORDERED: Acetaminophen 500 MG TAB PO PRN (02:48)
[2018-09-03] MEDS ORDERED: Ondansetron PF 4 MG/2 ML Vial IVP PRN (02:48)
[2018-09-03] MEDS ORDERED: Melatonin 3 MG TAB PO PRN (02:48)
[2018-09-03] MEDS ORDERED: Diabetic Tussin 200 MG/10 ML UDCUP PO PRN (02:48)
[2018-09-03 03:36] LABS: Prothrombin Time 52.9 SEC (12.0-14.7)
[2018-09-03 03:41] LABS: Band 1 % (5-11); Hemoglobin 11.5 g/dL (14.0-18.0); Lymphocytes 13 % (21-51); MDiff Complete? YES; Mean Corpuscular HGB CONC 33.4 g/dL (32.0-36.0); Mean Corpuscular Hemoglobin 35.1 pg (27.0-31.0); Mean Platelet Volume 7.9 fL (7.4-10.4); Monocytes 14 % (0-10); Neutrophil 71 % (42-75); Platelet Count 113 thou/uL (130-400); Platelet Morphology Comment Appears Decreased; RBC Distribution Width 15.1 % (11.5-14.5); Red Blood Cell (RBC) Count 3.29 mill/uL (4.70-6.10); White Blood Cell (WBC) Count 6.9 thou/uL (4.8-10.8)
[2018-09-03 03:43] LABS: INR-International Normal Ratio 5.9
[2018-09-03 03:54] LABS: ALT (SGPT) 11 U/L (8-55); AST (SGOT) 24 U/L (5-34); Albumin 2.9 g/dL (3.4-4.8); Alkaline Phosphatase 115 U/L (40-150); Anion Gap 16 mmol/L (10-20); BUN (Urea Nitrogen) 45 mg/dL (8.4-25.7); Bilirubin, Total 2.8 mg/dL (0.2-1.2); Calc. Creatinine Clearance 43 mL/min (70-130); Calcium 8.9 mg/dL (7.8-10.44); Carbon Dioxide 31 mmol/L (23-31); Chloride 91 mmol/L (98-107); Estimated GFR-MDRD 33; Globulin 2.9 g/dL (2.4-3.5); Glucose 104 mg/dL (83-110); Potassium 3.4 mmol/L (3.5-5.1); Protein, Total 5.8 g/dL (5.8-8.1); Sodium 135 mmol/L (136-145)
[2018-09-03 03:57] LABS: Troponin I 0.011 ng/mL (< 0.028)
[2018-09-03] MEDS: Furosemide 40 MG/4 ML VIAL SLOW IVP SCH ×2 (06:27→15:26)
--- NOTE | 2018-09-03 07:48 | PDOC.PN ---
- Subjective Encounter Start Date: 09/03/18 Encounter Start Time: 07:45 Subjective: deaf, no distress - Objective Resuscitation Status - Order Detail: 09/03/18 02:41 Resuscitation Status Routine Resuscitation Status: DNAR: NO Resuscitation Discussed with: With patient, signed OOH DNAR MAR Reviewed: Yes Vital Signs & Weight: Vital Signs (12 hours) Temp Pulse Resp BP Pulse Ox 09/03/18 04:00 98.5 F 73 18 104/58 L 95 09/03/18 01:10 98 F 75 24 H 103/51 L 09/03/18 01:00 95 Weight Weight 256 lb 1 oz Result Diagrams: 09/03/18 03:06 09/03/18 03:06 Phys Exam - Physical Examination Neck: no JVD post wheezes, rales bilat Cardiovascular: no significant murmur, irregular Gastrointestinal: soft, positive bowel sounds Musculoskeletal: no edema Dx/Plan (1) Acute on chronic systolic (congestive) heart failure Code(s): I50.23 - ACUTE ON CHRONIC SYSTOLIC (CONGESTIVE) HEART FAILURE Status : Acute (2) Coagulopathy Status: Acute (3) COPD (chronic obstructive pulmonary disease) Status: Chronic Qualifiers: Emphysema type: unspecified (4) Atrial fibrillation Code(s): I48.91 - UNSPECIFIED ATRIAL FIBRILLATION Status: Chronic Qualifiers: Atrial fibrillation type: chronic Comment: Currently paced, continue Coumadin, Metoprolol.INR therapeutic.Monitor (5) Chronic anticoagulation Code(s): Z79.01 - [facility] (CURRENT) USE OF ANTICOAGULANTS Status: Chronic Comment: Daily PT/INR, continue Coumadin, will have pharmacy monitor in house (6) Cirrhosis Code(s): K74.60 - UNSPECIFIED CIRRHOSIS OF LIVER Status: Chronic Qualifiers: Ascites presence: unspecified Comment: non alcoholic (7) CKD (chronic kidney disease) stage 3, GFR 30-59 ml/min Code(s): N18.3 - CHRONIC KIDNEY DISEASE, STAGE 3 (MODERATE) Status: Chronic - Plan INR>5- hold warfarin -: chd- cont iv lasix, b-delbert, no ITALO, ARB due to CKD3 * .
--- NOTE | 2018-09-03 08:23 | HP ---
PRIMARY CARE PROVIDER: Dr. Loyda Read. CHIEF COMPLAINT: Shortness of breath and swelling. HISTORY OF PRESENT ILLNESS: This is an 88-year-old male, who presents to [facility] Emergency Department and transferred from [facility] where the patient is current resident. The patient apparently had been noted with increasing shortness of breath, swelling of his upper and lower extremities, similar in presentation to previous admission in 07/2018. The patient with known history of combined systolic and diastolic congestive heart failure with measured ejection fraction of 25% to 30% on 08/01/2018. The patient also with severe mitral and tricuspid valve regurgitation complicating presentation. The patient denies any known fever, chills, nausea, vomiting, or diarrhea. The patient has been receiving physical and occupational therapy at [facility]. The patient states that he is likely unable to return home after completing his therapy as he lives alone. The patient normally can ambulate with a rolling walker. In the emergency room, the patient underwent general evaluation including chest imaging showing bilateral pulmonary edema with bilateral pleural effusions. The patient received IV Lasix 60 mg x1 dose in addition to potassium chloride 70 mEq. The patient was referred to the Hospitalist Service for further evaluation. PAST MEDICAL HISTORY: 1. Nonalcoholic cirrhosis. 2. [id number] combined systolic and diastolic congestive heart failure with ejection fraction of 25% to 30%. 3. Chronic atrial fibrillation with chronic anticoagulation with Coumadin. 4. Chronic kidney disease stage 3. 5. Deconditioning. 6. Anasarca. 7. Chronic anticoagulation with Coumadin. 8. Chronic obstructive pulmonary disease. 9. Deconditioning. PAST SURGICAL HISTORY: 1. Status post cochlear implant. 2. Status post pacemaker placement. 3. Status post hernia repair. CURRENT MEDICATIONS: 1. Enteric-coated aspirin 81 mg p.o. daily. 2. Finasteride 5 mg p.o. daily. 3. Lasix 40 mg p.o. b.i.d. 4. Lactulose 10 g per 15 mL, 10 mL p.o. b.i.d. 5. Melatonin 6 mg p.o. at bedtime p.r.n. 6. Zaroxolyn 5 mg p.o. 1 hour before Lasix on Friday and . 7. Pravachol 40 mg p.o. at bedtime. 8. Lamisil 1% one application topically q.i.d. 9. Coumadin 3 mg p.o. daily. 10. Magnesium oxide 400 mg p.o. daily. 11. Metoprolol succinate 25 mg p.o. daily. 12. Protonix 40 mg p.o. b.i.d. ALLERGIES: APIXABAN, BEE VENOM, PROTEIN. FAMILY HISTORY: Positive for hypertension. SOCIAL HISTORY: The patient resides at [facility]. No alcohol, tobacco, or illicit drug use. Ambulatory with the use of a rolling walker. REVIEW OF SYSTEMS: CONSTITUTIONAL: Negative for weight loss or gain, ability to conduct usual activities. SKIN: Negative for rash, itching. EYES: Negative for double vision, pain. ENT/MOUTH: Negative for nose bleeding, neck stiffness, pain, tenderness. CARDIOVASCULAR: Negative for palpitations, dyspnea on exertion, orthopnea. RESPIRATORY: Negative for shortness of breath, wheezing, cough, hemoptysis, fever or night sweats. GASTROINTESTINAL: Negative for poor appetite, abdominal pain, heartburn, nausea, vomiting, constipation, or diarrhea. GENITOURINARY: Negative for urgency, frequency, dysuria, nocturia. MUSCULOSKELETAL: Negative for pain, swelling. NEUROLOGIC/PSYCHIATRIC: Negative for anxiety, depression. ALLERGY/IMMUNOLOGIC: Negative for skin rash, bleeding tendency. Otherwise negative except as stated per HPI. PHYSICAL EXAMINATION: VITAL SIGNS: Currently, blood pressure 103/51, pulse 75, respiratory rate 24, temperature 98 degrees Fahrenheit, O2 saturation 94% on room air. GENERAL APPEARANCE: This is an 88-year-old male, alert and responsive, oriented to person and place, in no acute distress. HEENT: Pupils are equal, round, reactive to light and accommodation. Extraocular muscles are intact. No scleral icterus. No conjunctival injection. Nares patent. OP is clear. Teeth in fair repair. NECK: Supple. No cervical adenopathy. No thyromegaly. No carotid bruits. No JVD appreciated. Cervical spine with full active and passive range of motion. No meningeal signs noted. CHEST: Coarse breath sounds bilaterally with diminished in the bases with bibasilar crackles. CARDIOVASCULAR: S1 and S2 with a 2/6 systolic ejection murmur in the right upper sternal border. ABDOMEN: Rounded, soft, nontender, and nondistended. Bowel sounds are positive in all 4 quadrants. No hepatosplenomegaly. No abdominal bruits. No rebound or guarding appreciated. EXTREMITIES: Pitting edema to the thighs bilaterally. Chronic venous stasis changes to the bilateral lower extremities noted. Pulses palpable distally at the dorsalis pedis, posterior tibial, and popliteal arteries bilaterally. Capillary refill less than 2 seconds. Bilateral upper extremities with edema noted. NEUROLOGIC: Cranial nerves 2 through 12 are grossly intact. No focal or lateralizing signs appreciated. The patient not observed ambulatory during this exam. : Scrotal edema noted. PERTINENT LABORATORY AND X-RAY FINDINGS: Sodium 135, potassium 3.4, chloride 91, CO2 of 33, BUN 47, creatinine 1.99, estimated GFR of 32, glucose 118, calcium 9.8, total bilirubin 2.6. Troponin I 0.029. BNP 1228, previously noted 1114 on 07/30/2018. CBC showed a white blood cell count of 6.5, hemoglobin 12, hematocrit 35, MCV 105, platelet count 122 with normal differential. PT 52.1, INR 5.8. Portable chest x-ray dated 09/02/2018 showed bilateral pulmonary edema with bilateral pleural effusions. Left-sided AICD device in place. EKG dated 09/02/2018 by my interpretation shows electronic ventricular pacing in the 70s. Attenuated R-waves noted in the precordial leads. No acute ST-T wave changes appreciated. ASSESSMENT AND PLAN: 1. [id number] combined systolic and diastolic congestive heart failure exacerbation. We will admit to the telemetry unit. Continue Lasix 40 mg IV b.i.d. Suspect component also of valvular heart disease due to severe mitral and tricuspid valve regurgitation. Also component of chronic kidney disease. 2D transthoracic echocardiogram reviewed from 08/01/2018 showed ejection fraction of 25% to 30%. Continue daily weights and monitor intake and output. 2. Warfarin-induced coagulopathy. We will continue to hold Coumadin. Repeat INR in the a.m. No current evidence to suggest acute blood loss. 3. Hypokalemia. We will continue potassium supplementation 40 mEq p.o. b.i.d. Serial potassium monitoring. 4. Chronic kidney disease, stage 3. Avoid nephrotoxic agents and limit contrast exposure. Repeat creatinine in the a.m. 5. Nonalcoholic cirrhosis. Continue supportive management. Resume lactulose 10 g/15 mL at 10 mL p.o. b.i.d. 6. Deconditioning. PT evaluation for functional assessment. General fall risk precautions. 7. Prophylaxis. SCDs while in bed. Pepcid 20 mg p.o. b.i.d. PT evaluation in the a.m. 8. Code status. Do not attempt resuscitation, confirmed with the patient. Surrogate medical decision maker is the patient's son. Job ID: [id number]
[2018-09-03] MEDS: Finasteride 5 MG TAB PO SCH (11:04)
[2018-09-03] MEDS: Famotidine 20 MG TAB PO SCH (11:04)
[2018-09-03] MEDS: Magnesium Oxide 400 MG TAB PO SCH (11:04)
[2018-09-03] MEDS: Aspirin 81 mg Enteric Coated Tablet PO SCH (11:05)
[2018-09-03] MEDS: Potassium Chloride 20 MEQ TAB PO SCH ×2 (11:05→18:24)
[2018-09-03] MEDS: Albuterol Sulfate 2.5 mg/3 ml Neb NEB PRN ×2 (11:39→19:09)
[2018-09-03] MEDS: Atorvastatin Calcium 10 MG TAB PO SCH (21:33)
[2018-09-04] MEDS: Albuterol Sulfate 2.5 mg/3 ml Neb NEB PRN (03:25)
[2018-09-04 05:22] LABS: Prothrombin Time 52.4 SEC (12.0-14.7)
[2018-09-04] MEDS: Furosemide 40 MG/4 ML VIAL SLOW IVP SCH ×2 (05:36→13:16)
[2018-09-04 05:44] LABS: INR-International Normal Ratio 5.9
[2018-09-04] MEDS ORDERED: Bacteriostatic Water 30 ML VIAL FS PRN (09:26)
[2018-09-04] MEDS: Finasteride 5 MG TAB PO SCH (10:14)
[2018-09-04] MEDS: Aspirin 81 mg Enteric Coated Tablet PO SCH (10:14)
[2018-09-04] MEDS: Magnesium Oxide 400 MG TAB PO SCH (10:14)
[2018-09-04] MEDS: Potassium Chloride 20 MEQ TAB PO SCH ×2 (10:14→17:44)
[2018-09-04] MEDS: Famotidine 20 MG TAB PO SCH (10:14)
[2018-09-04] MEDS: methylPREDNISolone Sod Succ 40 MG VIAL IVP SCH (10:15)
[2018-09-04 11:46] LABS: #Basophils 0.1 thou/uL (0.0-0.2); #Eosinphils 0.1 thou/uL (0.0-0.7); #Lymphocytes 1.5 thou/uL (1.20-3.40); %Basophils 1.3 % (0.0-1.0); %Eosinophils 1.5 % (0.0-10.0); %Lymphocytes 19.4 % (21.0-51.0); %Monocytes 12.6 % (0.0-10.0); %Neutrophils 65.3 % (42.0-75.0); Hemoglobin 11.9 g/dL (14.0-18.0); Mean Corpuscular HGB CONC 31.8 g/dL (32.0-36.0); Mean Corpuscular Hemoglobin 33.8 pg (27.0-31.0); Mean Platelet Volume 7.8 fL (7.4-10.4); Platelet Count 111 thou/uL (130-400); RBC Distribution Width 15.1 % (11.5-14.5); Red Blood Cell (RBC) Count 3.51 mill/uL (4.70-6.10); White Blood Cell (WBC) Count 7.6 thou/uL (4.8-10.8)
[2018-09-04] MEDS ORDERED: Polyethylene Glycol 3350 17 GM Packet PO SCH (12:00)
[2018-09-04] MEDS ORDERED: Bisacodyl 5 MG TAB PO SCH (12:00)
[2018-09-04] MEDS ORDERED: Bisacodyl 10 MG SUPP PR PRN (12:54)
[2018-09-04] MEDS ORDERED: Metolazone 5 MG TAB PO SCH (13:00)
[2018-09-04] MEDS ORDERED: Magnesium Citrate 300 ML BOT PO SCH (13:00)
--- NOTE | 2018-09-04 13:36 | PDOC.PN ---
- Subjective Encounter Start Date: 09/04/18 Encounter Start Time: 10:15 Subjective: pt up in bed very sob - Objective Resuscitation Status - Order Detail: 09/03/18 02:41 Resuscitation Status Routine Resuscitation Status: DNAR: NO Resuscitation Discussed with: With patient, signed OOH DNAR Vital Signs & Weight: Vital Signs (12 hours) Temp Pulse Pulse Pulse Resp BP BP 09/04/18 13:31 75 20 09/04/18 11:50 97.6 F 77 16 09/04/18 10:55 76 70 104/54 L 112/56 L 09/04/18 09:54 79 20 09/04/18 09:10 73 71 131/60 130/77 09/04/18 08:00 09/04/18 07:35 97.5 F L 75 17 09/04/18 04:00 97.6 F 77 20 09/04/18 03:25 76 20 BP BP Pulse Ox 09/04/18 13:31 96 09/04/18 11:50 106/58 L 96 09/04/18 10:55 09/04/18 09:54 97 09/04/18 09:10 09/04/18 08:00 98 09/04/18 07:35 106/52 L 98 09/04/18 04:00 104/55 L 98 09/04/18 03:25 97 Weight Weight 254 lb I&O: 09/03/18 09/04/18 09/05/18 06:59 06:59 06:59 Intake Total 100 1080 Output Total 250 500 Balance 100 830 -500 Result Diagrams: 09/04/18 11:23 09/03/18 03:06 Phys Exam - Physical Examination Neck: no nodes, no JVD, supple, full ROM rhonchi all over lungs Cardiovascular: RRR, no significant murmur, no rub, gallop, irregular Gastrointestinal: soft, non-tender, no distention, positive bowel sounds Musculoskeletal: no edema, pulses present, edema present Dx/Plan (1) Acute on chronic systolic (congestive) heart failure Code(s): I50.23 - ACUTE ON CHRONIC SYSTOLIC (CONGESTIVE) HEART FAILURE Status : Acute (2) Anasarca Code(s): R60.1 - GENERALIZED EDEMA Status: Acute (3) COPD (chronic obstructive pulmonary disease) Status: Chronic Qualifiers: Emphysema type: unspecified (4) Cirrhosis Code(s): K74.60 - UNSPECIFIED CIRRHOSIS OF LIVER Status: Chronic Qualifiers: Ascites presence: unspecified Comment: non alcoholic (5) CKD (chronic kidney disease) stage 3, GFR 30-59 ml/min Code(s): N18.3 - CHRONIC KIDNEY DISEASE, STAGE 3 (MODERATE) Status: Chronic - Plan will schedule duoneb -: will add steroids. will give pt albumin. palliative consulted. will consult -: nephro, pt may need lasix drip. ? hospice. -: he has severe TR * . Review of Systems - Review of Systems Respiratory: Shortness of Breath, SOB with Excertion Cardiovascular: negative: chest pain, palpitations, orthopnea, paroxysmal nocturnal dyspnea, edema, light headedness, other Gastrointestinal: negative: Nausea, Vomiting, Abdominal Pain, Diarrhea, Constipation, Melena, Hematochezia, Other - Medications/Allergies Allergies/Adverse Reactions: Allergies Allergy/AdvReac Type Severity Reaction Status Date / Time apixaban [From EliquPearescope] Allergy Verified 07/30/18 22:20 bee venom protein (honey bee) Allergy Verified 06/14/18 08:18 Medications: Current Medications Acetaminophen (Tylenol) 1,000 mg PO Q6H PRN PRN Reason: Mild Pain (1-3) Albuterol Sulfate (Ventolin) 7.5 mg NEB Q6H PRN PRN Reason: SOB &/or Wheezing Last Admin: 09/04/18 03:25 Dose: 7.5 mg Albuterol/Ipratropium (Duoneb) 3 ml NEB [id number] Last Admin: 09/04/18 13:31 Dose: 3 ml Aspirin (Ecotrin) 81 mg PO DAILY [facility] Last Admin: 09/04/18 10:14 Dose: 81 mg Atorvastatin Calcium (Lipitor) 10 mg PO HS [facility] Last Admin: 09/03/18 21:33 Dose: 10 mg Benzonatate (Tessalon) 100 mg PO Q6H PRN PRN Reason: Cough Bisacodyl (Dulcolax) 10 mg [place] DAILYPRN PRN PRN Reason: Constipation Famotidine (Pepcid) 20 mg PO DAILY [facility] Last Admin: 09/04/18 10:14 Dose: 20 mg [facility]aster[facility] ([facility]) [facility] Last Admin: 09/04/18 10:14 Dose: 5 mg Furosemide (Lasix) 40 mg SLOW IVP 0600,1400 [facility] Last Admin: 09/04/18 13:16 Dose: 40 mg Guaifenesin (Robitussin Sf) 200 mg PO Q4H PRN PRN Reason: Cough Magnesium Citrate (Citrate Of Magnesia 300 Ml Bot) 300 ml PO NOW [facility] Stop: 09/04/18 15:00 Last Admin: 09/04/18 13:16 Dose: 300 ml Magnesium Oxide (Magnesium Oxide) 400 mg PO DAILY [facility] Last Admin: 09/04/18 10:14 Dose: 400 mg Melatonin (Melatonin) 6 mg PO HSPRN PRN PRN Reason: Insomnia Methylprednisolone Sodium Succinate (Solu-Medrol) 40 mg IVP DAILY [facility] Last Admin: 09/04/18 10:15 Dose: 40 mg Metolazone (Zaroxolyn) 5 mg PO NOW [facility] Stop: 09/04/18 15:00 Last Admin: 09/04/18 13:16 Dose: 5 mg Metolazone (Zaroxolyn) 5 mg PO 0830 [facility] Metoprolol Succinate (Toprol Xl) 25 mg PO DAILY [facility] Last Admin: 09/04/18 10:18 Dose: 25 mg Ondansetron HCl (Zofran Odt) 4 mg PO Q6H PRN PRN Reason: Nausea/Vomiting Ondansetron HCl (Zofran) 4 mg IVP Q6H PRN PRN Reason: Nausea/Vomiting Polyethylene Glycol (Miralax) 17 gm PO DAILY [facility] Potassium Chloride (K-Dur) 40 meq PO BID-WM [facility] Last Admin: 09/04/18 10:14 Dose: 40 meq Sterile Water (Bacteriostatic Water) 1 ml FS PRN PRN PRN Reason: RECONSTITUTION Terbinafine HCl (Lamisil At 1% Cream) 0 gm TOP QID [facility] Last Admin: 09/04/18 13:17 Dose: 1 applic
--- NOTE | 2018-09-04 18:01 | CON ---
DATE OF CONSULTATION: REASON FOR CONSULTATION: Hypervolemia in a patient with moderately advanced chronic kidney disease. IMPRESSION: 1. Moderately advanced chronic kidney disease. 2. Hypervolemia. 3. Constipation. PLAN: 1. We will place this patient on Mag citrate. 2. We will augment the loop diuretic with Zaroxolyn. 3. Renally dose all medications and avoid potentially nephrotoxic agents. HISTORY OF PRESENT ILLNESS: An 88-year-old gentleman with a moderately advanced chronic kidney disease, who presented here with shortness of breath and generalized body swelling. The patient at this point complaining more of constipation and feeling miserable about it. The patient has been placed on loop diuretic with marginal improvement. The patient's hypervolemia necessitated this Renal consultation. PAST MEDICAL HISTORY: Significant for nonalcoholic cirrhosis, acute on chronic systolic congestive heart failure, chronic atrial fibrillation with a coagulopathy, chronic kidney disease, deconditioning, and advanced age. MEDICATIONS: Reviewed as documented on [employer]. ALLERGIES: TO APIXABAN, BEE, AND PROTEIN. FAMILY HISTORY: Not significantly related to present illness. SOCIAL HISTORY: The patient is a assisted resident. No alcohol, tobacco, or illicit drug use. REVIEW OF SYSTEMS: As documented in the body of the history. All the other systems were reviewed and found not to be significantly related to presenting illness. PHYSICAL EXAMINATION: GENERAL: On examination, the patient was noted to be in some physical distress and respiratory distress, noted with following vital signs. VITAL SIGNS: Afebrile, temperature 97.6, pulse 77, respiratory rate of 16, O2 saturations 96% on 3 L, and blood pressure 106/58. HEENT: Unremarkable. CARDIOVASCULAR SYSTEM: First and second heart sounds were heard. RESPIRATORY SYSTEM: Revealed a lot of rales bilaterally. DIGESTIVE SYSTEM: Revealed an obese abdomen. EXTREMITIES: Showed peripheral edema. NEUROLOGIC: Alert. No lateralizing signs. LYMPHATICS: No peripheral lymphadenopathy. SUMMARY: An 88-year-old gentleman with moderately advanced chronic kidney disease, who presented here hypovolemic. Thank you for this consultation. We will follow with you. Job ID: [id number]
[2018-09-04] MEDS: Atorvastatin Calcium 10 MG TAB PO SCH (21:00)
[2018-09-04] MEDS: Benzonatate 100 MG CAP PO PRN (23:31)
[2018-09-05] MEDS: Furosemide 40 MG/4 ML VIAL SLOW IVP SCH ×2 (05:07→13:28)
[2018-09-05 05:42] LABS: Prothrombin Time 48.6 SEC (12.0-14.7)
[2018-09-05 05:46] LABS: INR-International Normal Ratio 5.3
[2018-09-05] MEDS: Magnesium Oxide 400 MG TAB PO SCH (09:13)
[2018-09-05] MEDS: Potassium Chloride 20 MEQ TAB PO SCH ×2 (09:13→16:21)
[2018-09-05] MEDS: Aspirin 81 mg Enteric Coated Tablet PO SCH (09:13)
[2018-09-05] MEDS: Metolazone 5 MG TAB PO SCH (09:14)
[2018-09-05] MEDS: Finasteride 5 MG TAB PO SCH (09:14)
[2018-09-05] MEDS: Famotidine 20 MG TAB PO SCH (09:14)
[2018-09-05] MEDS: Polyethylene Glycol 3350 17 GM Packet PO SCH (09:15)
[2018-09-05] MEDS: methylPREDNISolone Sod Succ 40 MG VIAL IVP SCH (09:15)
--- NOTE | 2018-09-05 12:00 | EKG ---
Test Reason : Blood Pressure : / mmHG Vent. Rate : 079 BPM Atrial Rate : 070 BPM P-R Int : 000 ms QRS Dur : 172 ms QT Int : 494 ms P-R-T Axes : 000 011 110 degrees QTc Int : 566 ms Electronic ventricular pacemaker No ST elevation/RI No Sgarbossa Confirmed by NEHEMIAS ARCE M.D. ([id number]), electronic news gathering editor GEMA STAFFORD ([id number] on 09/05/2018 11:59:48 AM Referred By: Confirmed By:NEHEMIAS ARCE M.D.
--- NOTE | 2018-09-05 13:48 | PDOC.PN ---
- Subjective Encounter Start Date: 09/05/18 Encounter Start Time: 13:46 Subjective: pt up in bed complains of sob - Objective Resuscitation Status - Order Detail: 09/03/18 02:41 Resuscitation Status Routine Resuscitation Status: DNAR: NO Resuscitation Discussed with: With patient, signed OOH DNAR Vital Signs & Weight: Vital Signs (12 hours) Temp Pulse Pulse Pulse Resp BP BP 09/05/18 11:00 97.8 F 75 16 09/05/18 10:34 68 75 99/54 L 103/53 L 09/05/18 09:42 88 16 09/05/18 09:20 09/05/18 07:00 97.6 F 72 16 09/05/18 03:00 97.3 F L 78 16 BP Pulse Ox Pulse Ox Pulse Ox 09/05/18 11:00 99/54 L 97 09/05/18 10:34 97 97 09/05/18 09:42 09/05/18 09:20 92 L 09/05/18 07:00 97/51 L 92 L 09/05/18 03:00 104/51 L 95 Weight Weight 248 lb 4.8 oz I&O: 09/04/18 09/05/18 09/06/18 06:59 06:59 06:59 Intake Total 1080 1378 620 Output Total 250 500 Balance 830 878 620 Result Diagrams: 09/04/18 11:23 09/03/18 03:06 Phys Exam - Physical Examination Neck: no nodes, no JVD, supple, full ROM Respiratory: wheezing present rhonchi all over Cardiovascular: RRR, no significant murmur, no rub, gallop, irregular Gastrointestinal: soft, non-tender, no distention, positive bowel sounds Musculoskeletal: no edema, pulses present, edema present Dx/Plan (1) Acute on chronic systolic (congestive) heart failure Code(s): I50.23 - ACUTE ON CHRONIC SYSTOLIC (CONGESTIVE) HEART FAILURE Status : Acute (2) Anasarca Code(s): R60.1 - GENERALIZED EDEMA Status: Acute (3) COPD (chronic obstructive pulmonary disease) Status: Chronic Qualifiers: Emphysema type: unspecified (4) Cirrhosis Code(s): K74.60 - UNSPECIFIED CIRRHOSIS OF LIVER Status: Chronic Qualifiers: Ascites presence: unspecified Comment: non alcoholic - Plan will continue with diuresis -: will call son today -: will replace electrolytes * . Review of Systems - Review of Systems Respiratory: Shortness of Breath. negative: Cough, Dry, Hemoptysis, SOB with Excertion, Pleuritic Pain, Sputum, Wheezing Cardiovascular: negative: chest pain, palpitations, orthopnea, paroxysmal nocturnal dyspnea, edema, light headedness, other Gastrointestinal: negative: Nausea, Vomiting, Abdominal Pain, Diarrhea, Constipation, Melena, Hematochezia, Other - Medications/Allergies Allergies/Adverse Reactions: Allergies Allergy/AdvReac Type Severity Reaction Status Date / Time apixaban [From Eliquis] Allergy Verified 07/30/18 22:20 bee venom protein (honey bee) Allergy Verified 06/14/18 08:18 Medications: Current Medications Acetaminophen (Tylenol) 1,000 mg PO Q6H PRN PRN Reason: Mild Pain (1-3) Albuterol Sulfate (Ventolin) 7.5 mg NEB Q6H PRN PRN Reason: SOB &/or Wheezing Last Admin: 09/04/18 03:25 Dose: 7.5 mg Albuterol/Ipratropium (Duoneb) 3 ml NEB [id number] [facility] Last Admin: 09/05/18 09:42 Dose: 3 ml Aspirin (Ecotrin) 81 mg PO DAILY [facility] Last Admin: 09/05/18 09:13 Dose: 81 mg Atorvastatin Calcium (Lipitor) 10 mg PO HS [facility] Last Admin: 09/04/18 21:00 Dose: 10 mg Benzonatate (Tessalon) 100 mg PO Q6H PRN PRN Reason: Cough Last Admin: 09/04/18 23:31 Dose: 100 mg Bisacodyl (Dulcolax) 10 mg [place] DAILYPRN PRN PRN Reason: Constipation Famotidine (Pepcid) 20 mg PO DAILY [facility] Last Admin: 09/05/18 09:14 Dose: 20 mg Finasteride (Proscar) 5 mg PO QAM [facility] Last Admin: 09/05/18 09:14 Dose: 5 mg Furosemide (Lasix) 40 mg SLOW IVP 0600,1400 [facility] Last Admin: 09/05/18 13:28 Dose: 40 mg Guaifenesin (Robitussin Sf) 200 mg PO Q4H PRN PRN Reason: Cough Magnesium Oxide (Magnesium Oxide) 400 mg PO DAILY [facility] Last Admin: 09/05/18 09:13 Dose: 400 mg Melatonin (Melatonin) 6 mg PO HSPRN PRN PRN Reason: Insomnia Methylprednisolone Sodium Succinate (Solu-Medrol) 40 mg IVP DAILY [facility] Last Admin: 09/05/18 09:15 Dose: 40 mg Metolazone (Zaroxolyn) 5 mg PO 0830 [facility] Last Admin: 09/05/18 09:14 Dose: 5 mg Metoprolol Succinate (Toprol Xl) 25 mg PO DAILY [facility] Last Admin: 09/05/18 09:14 Dose: 25 mg Ondansetron HCl (Zofran Odt) 4 mg PO Q6H PRN PRN Reason: Nausea/Vomiting Ondansetron HCl (Zofran) 4 mg IVP Q6H PRN PRN Reason: Nausea/Vomiting Polyethylene Glycol (Miralax) 17 gm PO DAILY [facility] Last Admin: 09/05/18 09:15 Dose: 17 gm Potassium Chloride (K-Dur) 40 meq PO BID-WM [facility] Last Admin: 09/05/18 09:13 Dose: 40 meq Sterile Water (Bacteriostatic Water) 1 ml FS PRN PRN PRN Reason: RECONSTITUTION Terbinafine HCl (Lamisil At 1% Cream) 0 gm TOP QID [facility] Last Admin: 09/05/18 13:28 Dose: 1 applic
[2018-09-05 14:38] LABS: Anion Gap 15 mmol/L (10-20); BUN (Urea Nitrogen) 53 mg/dL (8.4-25.7); Calc. Creatinine Clearance 43 mL/min (70-130); Calcium 9.3 mg/dL (7.8-10.44); Carbon Dioxide 33 mmol/L (23-31); Chloride 93 mmol/L (98-107); Estimated GFR-MDRD 33; Glucose 134 mg/dL (83-110); Potassium 5.1 mmol/L (3.5-5.1); Sodium 136 mmol/L (136-145)
[2018-09-05] MEDS ORDERED: Albumin 25% 25 GM/100 ML BOT IVPB SCH (16:00)
[2018-09-05] MEDS: Benzonatate 100 MG CAP PO PRN (20:34)
[2018-09-05] MEDS: Albumin 25% 25 GM/100 ML BOT IVPB SCH (20:34)
[2018-09-05] MEDS: Atorvastatin Calcium 10 MG TAB PO SCH (20:34)
--- NOTE | 2018-09-05 21:06 | PRG ---
DATE OF SERVICE: 09/05/2018 SUBJECTIVE: The patient was seen and examined, sleepy, does finish vomiting. OBJECTIVE: VITAL SIGNS: Noted with the following vital signs; afebrile, temperature 97.7, pulse 77, respiratory rate of 16, O2 saturations are 96%, and blood pressure 160/56. HEENT: Unremarkable. CARDIOVASCULAR SYSTEM: First and second heart sounds were heard. RESPIRATORY SYSTEM: DIGESTIVE SYSTEM: Revealed a benign abdomen. Positive bowel sounds. EXTREMITIES: Show some peripheral edema. LABORATORY DATA: Chemistry showed a creatinine 1.91, BUN of 53. IMPRESSION: 1. Advanced chronic kidney disease in the context of cardiorenal syndrome. 2. Respiratory distress . PLAN: 1. We will continue diuresis. 2. We will possibly consider augmenting the loop diuretics. 3. Further management will be dependent on the clinical course. Job ID: [id number]
[2018-09-06 06:03] LABS: Anion Gap 14 mmol/L (10-20); BUN (Urea Nitrogen) 59 mg/dL (8.4-25.7); Calc. Creatinine Clearance 38 mL/min (70-130); Calcium 9.5 mg/dL (7.8-10.44); Carbon Dioxide 34 mmol/L (23-31); Chloride 93 mmol/L (98-107); Estimated GFR-MDRD 29; Glucose 111 mg/dL (83-110); Potassium 5.5 mmol/L (3.5-5.1); Sodium 135 mmol/L (136-145)
[2018-09-06] MEDS: Furosemide 40 MG/4 ML VIAL SLOW IVP SCH ×2 (06:10→13:02)
[2018-09-06 06:31] LABS: INR-International Normal Ratio 5.2
--- NOTE | 2018-09-06 08:00 | PDOC.EVN ---
Event Note - Event Note Event Note: spoke with aime nieves son about pt's overall medical issues and prognosis. Spoke via phone for approximatly 35min. Answered all question and updated aime and his about lab values and possible consider hospice. Aime will talk with his father today about hospice.
[2018-09-06] MEDS: Albumin 25% 25 GM/100 ML BOT IVPB SCH ×2 (08:55→15:28)
[2018-09-06] MEDS: Metolazone 5 MG TAB PO SCH (08:55)
[2018-09-06] MEDS: Finasteride 5 MG TAB PO SCH (08:56)
[2018-09-06] MEDS: Famotidine 20 MG TAB PO SCH (08:56)
[2018-09-06] MEDS: Aspirin 81 mg Enteric Coated Tablet PO SCH (08:56)
[2018-09-06] MEDS: Magnesium Oxide 400 MG TAB PO SCH (08:56)
[2018-09-06] MEDS: methylPREDNISolone Sod Succ 40 MG VIAL IVP SCH (08:57)
[2018-09-06] MEDS: Polyethylene Glycol 3350 17 GM Packet PO SCH (08:57)
[2018-09-06] MEDS: Potassium Chloride 20 MEQ TAB PO SCH (09:51)
[2018-09-06 19:49] VITALS: BP 124/59; TEMP 97.5
--- NOTE | 2018-09-06 21:04 | PRG ---
DATE OF SERVICE: 09/06/2018 The patient went to inpatient hospice, so I signed off. Job ID: [id number]
== END 2018-09-06 20:26 | disposition hospice, inpatient (51) | DRG 291 ==
LOC: ERS 19:48 → 2SE 23:08
PROVIDERS: ADMIT Family Medicine; ATTEND Family Medicine
DX: I13.0 Hypertensive heart and chronic kidney disease with heart failure and stage 1 through stage 4 chronic kidney disease, or unspecified chronic kidney disease (principal); I50.43 Acute on chronic combined systolic (congestive) and diastolic (congestive) heart failure; J44.1 Chronic obstructive pulmonary disease with (acute) exacerbation; D68.8 Other specified coagulation defects; I48.2 Chronic atrial fibrillation; Z66 Do not resuscitate; I08.1 Rheumatic disorders of both mitral and tricuspid valves; E87.6 Hypokalemia; T45.515A Adverse effect of anticoagulants, initial encounter; I73.9 Peripheral vascular disease, unspecified; R06.03 Acute respiratory distress; K59.00 Constipation, unspecified; K74.69 Other cirrhosis of liver; N18.3 Chronic kidney disease, stage 3 (moderate); Z96.21 Cochlear implant status; Z79.01 Long term (current) use of anticoagulants; Z79.82 Long term (current) use of aspirin; Z79.899 Other long term (current) drug therapy; Z95.810 Presence of automatic (implantable) cardiac defibrillator; Z60.2 Problems related to living alone; Z88.8 Allergy status to other drugs, medicaments and biological substances; Z91.030 Bee allergy status; Z91.018 Allergy to other foods
CPT/HCPCS: 36415; 71045; 80048; 80053; 82140; 82553; 83880; 84484; 85007; 85025; 85027; 85610; 93005; 93798; 94640; 96374; J1940; J2405; J2920; J7611; J7620; P9047